=== PATIENT | female | born 1945 | race Caucasian/White ===

== ENCOUNTER 2021-04-15 08:45 | Inpatient (IN) | payer MEDICARE, MEDICAID ==
[2021-04-15] MEDS ORDERED: Sodium Chloride 0.9% 2.5 ML Syringe FLUSH PRN (09:22)
[2021-04-15] MEDS ORDERED: Sodium Chloride 0.9% 10 ML Syringe FLUSH PRN (09:22)
[2021-04-15] MEDS ORDERED: Pantoprazole 80 MG in Sodium Chloride 0.9% 10 ML IV ONE (09:23)
--- NOTE | 2021-04-15 09:25 | EDM.PDOC ---
ED HPI GENERAL MEDICAL PROBLEM - General Chief Complaint: Abdominal Pain Stated Complaint: REFFERED FROM [facility] Time Seen by Provider: 04/15/21 09:17 - History of Present Illness INITIAL COMMENTS - FREE TEXT/NARRATIVE: Patient presents to the emergency department with vomiting coffee-ground emesis and abdominal discomfort. Medical information is limited secondary to patient's baseline aphasia. Patient is able to shake her head yes and no and it does appear that the patient denies any chest pain or shortness of breath or diarrhea or fever pain with urination but I am unsure of the reliability of this information. History of hypertension, renal disease and cerebral infarction. abdomen Pain Score (Numeric/FACES): 5 - Related Data Allergies Allergy/AdvReac Type Severity Reaction Status Date / Time No Known Allergies Allergy Verified 04/15/21 09:31 Home Meds: Home Meds Aspirin [Aspirin EC] 81 mg PO DAILY 04/15/21 [History] Calcium Carbonate/Vitamin D3 [Calcium 500-Vit D3 200 Caplet] 1 tab PO DAILY 04/15/21 [History] Docusate Sodium [Colace] 200 mg PO DAILY 04/15/21 [History] Escitalopram [Lexapro] 10 mg PO DAILY 04/15/21 [History] Magnesium Hydroxide [Milk of Magnesia] 30 ml PO DAILY PRN 04/15/21 [History] Mirtazapine 30 mg PO BEDTIME 04/15/21 [History] Rivaroxaban [Xarelto] 20 mg PO WITHDINNER 04/15/21 [History] bisacodyL [Dulcolax] 5 mg PO DAILY PRN 04/15/21 [History] bisacodyL [Dulcolax] 10 mg RC DAILY PRN 04/15/21 [History] polyethylene glycoL 3350 [MiraLAX] 17 gm PO DAILY 04/15/21 [History] ED ROS GENERAL - Review of Systems Review Of Systems: Unable To Obtain Reason Not Obtained: baseline aphasia ED EXAM, GENERAL - Physical Exam Exam: See Below Free Text/Narrative:: CONSTITUTIONAL: well appearing in no acute distress SKIN: Warm, dry, and intact without rash HENT: Normocephalic, atraumatic, PULMONARY: clear to ausculation bilaterally. No rales, rhonchi, wheezing CARDIOVASCULAR: regular rate, No murmur, rubs, or gallops GASTROINTESTINAL: Diffuse mild tenderness NEUROLOGIC: Aphasia, facial droop, patient in wheelchair. MUSCULOSKELETAL: no gross deformities, atraumatic PSYCHIATRIC: normal mood and affect #1 Interpretation Time: 10:21 EKG Interpretation Comments: EKG: NSR, nonspecific ST/T changes, Rate -88. QT prolonged at 581 Course - Vital Signs Text/Narrative:: Differential diagnosis: Acute cholecystitis, bowel obstruction, ACS, Covid, pneumonia, sepsis, UTI, other Patient presents with abdominal pain and vomiting. Patient is found to have acute cholecystitis. Patient with an elevated lactic acid as well as leukocytosis in the setting of infection meeting sepsis criteria. Patient given 30 cc/kg of IV fluid and blood products in combination. Patient by history has a possible GI bleed. The stool is brown guaiac-negative from below. Protonix has been given and a unit of packed red blood cells given in this patient that has some evidence of end organ ischemia with troponin elevation. Patient denies any chest pain. I do not think this is primary ACS. Nonetheless cardiology was contacted and concurs with treatment plan. Patient was evaluated by general surgery who felt given the complexity of the patient the patient be better off at a facility with more resources. Unfortunately [place] a bed that is available. Decision is made to admit for the immediate time to resuscitate and monitor to ensure that there is no decompensation and to transfer when a bed becomes available. Discussed with graphic design professor, Dr. Ferrer, states we can keep the patient here. No aspirin in the setting of possible upper GI bleed 5:24pm [facility], [facility], [facility], [facility], [facility], [facility], [facility], [facility] contacted. Unfortunately, no beds are avaiable at this time. Last Recorded V/S: Last Vital Signs Temp 36.3 C 04/15/21 09:19 Pulse 85 04/15/21 14:44 Resp 17 04/15/21 14:44 BP 178/72 H 04/15/21 14:44 Pulse Ox 94 L 04/15/21 14:44 - Orders/Labs/Meds Orders: Active Orders 24 hr Category Date Time Status Admission Status [Patient Status] [ADT] Stat ADT 04/15/21 17:38 Active Cardiac Monitoring [RC] . DIRECTED Care 04/15/21 17:38 Active CULTURE BLOOD [BC] Stat Lab 04/15/21 09:35 Received CULTURE BLOOD [BC] Stat Lab 04/15/21 09:40 Results UA RFX NATALY AND CULT IF INDIC [URIN] Stat Lab 04/15/21 12:32 Ordered Sodium Chloride 0.9% [Saline Flush] Med 04/15/21 09:22 Active 10 ml FLUSH ASDIRECTED PRN Sodium Chloride 0.9% [Saline Flush] Med 04/15/21 09:22 Active 2.5 ml FLUSH ASDIRECTED PRN Blood Culture x2 Reflex Set [OM.PC] Stat Oth 04/15/21 09:22 Ordered Saline Lock Insert [OM.PC] Stat Oth 04/15/21 09:22 Ordered Transfuse Red Blood Cells [COMM] Stat Oth 04/15/21 10:41 Ordered Medication Orders Sodium Chloride (Sodium Chloride 0.9% 10 Ml Syringe) 10 ml FLUSH ASDIRECTED PRN PRN Reason: Keep Vein Open Last Admin: 04/15/21 09:49 Dose: 10 ml Documented by: MURTAZA Sodium Chloride (Sodium Chloride 0.9% 2.5 Ml Syringe) 2.5 ml FLUSH ASDIRECTED PRN PRN Reason: Keep Vein Open Last Admin: 04/15/21 09:50 Dose: 2.5 ml Documented by: MURTAZA Labs: Laboratory Tests 04/15/21 04/15/21 04/15/21 Range/Units 09:32 09:35 09:35 WBC 15.74 H (4.0-11.0) K/uL RBC 4.34 (4.30-5.90) M/uL Hgb 8.5 L (12.0-16.0) g/dL Hct 30.5 L (36.0-46.0) % MCV 70.3 L (80.0-98.0) fL MCH 19.6 L (27.0-32.0) pg MCHC 27.9 L (31.0-37.0) g/dL RDW Std Deviation 45.8 (28.0-62.0) fl RDW Coeff of Darilng 18 H (11.0-15.0) % Plt Count 602 H (150-400) K/uL MPV 10.30 (7.40-12.00) fL Neut % (Auto) 89.4 H (48.0-80.0) % Lymph % (Auto) 4.5 L (16.0-40.0) % Craig % (Auto) 6.0 (0.0-15.0) % Eos % (Auto) 0.0 (0.0-7.0) % Baso % (Auto) 0.1 (0.0-1.5) % Neut # (Auto) 14.1 H (1.4-5.7) K/uL Lymph # (Auto) 0.7 (0.6-2.4) K/uL Craig # (Auto) 1.0 H (0.0-0.8) K/uL Eos # (Auto) 0.0 (0.0-0.7) K/uL Baso # (Auto) 0.0 (0.0-0.1) K/uL Nucleated RBC % 0.0 /100WBC Nucleated RBCs # 0 K/uL INR 1.19 APTT 26.1 (18.6-31.3) SEC Sodium (136-145) mmol/L Potassium (3.5-5.1) mmol/L Chloride (98-107) mmol/L Carbon Dioxide (21.0-32.0) mmol/L BUN (7.0-18.0) mg/dL Creatinine (0.6-1.0) mg/dL Est Cr Clr Drug Dosing mL/min Estimated GFR (MDRD) ml/min Glucose (74-106) mg/dL Lactic Acid (0.4-2.0) mmol/L Calcium (8.5-10.1) mg/dL Total Bilirubin (0.2-1.0) mg/dL AST (15-37) IU/L ALT (14-63) IU/L Alkaline Phosphatase (46-116) U/L Troponin I (0.000-0.056) ng/mL Total Protein (6.4-8.2) g/dL Albumin (3.4-5.0) g/dL Globulin (2.6-4.0) g/dL Albumin/Globulin Ratio (0.9-1.6) Lipase (73-393) U/L Blood Type A POSITIVE Antibody Screen NEGATIVE 04/15/21 04/15/21 04/15/21 Range/Units 09:35 09:35 15:28 WBC (4.0-11.0) K/uL RBC (4.30-5.90) M/uL Hgb (12.0-16.0) g/dL Hct (36.0-46.0) % MCV (80.0-98.0) fL MCH (27.0-32.0) pg MCHC (31.0-37.0) g/dL RDW Std Deviation (28.0-62.0) fl RDW Coeff of Darling (11.0-15.0) % Plt Count (150-400) K/uL MPV (7.40-12.00) fL Neut % (Auto) (48.0-80.0) % Lymph % (Auto) (16.0-40.0) % Craig % (Auto) (0.0-15.0) % Eos % (Auto) (0.0-7.0) % Baso % (Auto) (0.0-1.5) % Neut # (Auto) (1.4-5.7) K/uL Lymph # (Auto) (0.6-2.4) K/uL Craig # (Auto) (0.0-0.8) K/uL Eos # (Auto) (0.0-0.7) K/uL Baso # (Auto) (0.0-0.1) K/uL Nucleated RBC % /100WBC Nucleated RBCs # K/uL INR APTT (18.6-31.3) SEC Sodium 136 (136-145) mmol/L Potassium 4.5 (3.5-5.1) mmol/L Chloride 101 (98-107) mmol/L Carbon Dioxide 26.6 (21.0-32.0) mmol/L BUN 17 (7.0-18.0) mg/dL Creatinine 1.4 H (0.6-1.0) mg/dL Est Cr Clr Drug Dosing 25.05 mL/min Estimated GFR (MDRD) 36.6 ml/min Glucose 193 H (74-106) mg/dL Lactic Acid 2.8 H* 2.5 H* (0.4-2.0) mmol/L Calcium 8.3 L (8.5-10.1) mg/dL Total Bilirubin 0.3 (0.2-1.0) mg/dL AST 18 (15-37) IU/L ALT 14 (14-63) IU/L Alkaline Phosphatase 123 H (46-116) U/L Troponin I 0.438 H* (0.000-0.056) ng/mL Total Protein 8.4 H (6.4-8.2) g/dL Albumin 3.3 L (3.4-5.0) g/dL Globulin 5.1 H (2.6-4.0) g/dL Albumin/Globulin Ratio 0.7 L (0.9-1.6) Lipase 124 (73-393) U/L Blood Type Antibody Screen Meds: Medications Generic Name Dose Route Start Last Admin Trade Name Freq PRN Reason Stop Dose Admin Sodium Chloride 10 ml 04/15/21 09:22 04/15/21 09:49 Sodium Chloride 0.9% 10 Ml Syringe FLUSH 10 ml ASDIRECTED PRN Administration Keep Vein Open Sodium Chloride 2.5 ml 04/15/21 09:22 04/15/21 09:50 Sodium Chloride 0.9% 2.5 Ml Syringe FLUSH 2.5 ml ASDIRECTED PRN Administration Keep Vein Open Discontinued Medications Generic Name Dose Route Start Last Admin Trade Name Freq PRN Reason Stop Dose Admin Pantoprazole Sodium 80 mg/ 10 mls @ 300 mls/hr 04/15/21 09:23 04/15/21 09:49 Sodium Chloride IV 04/15/21 09:24 300 mls/hr NOW ONE Administration Piperacillin Sod/Tazobactam 50 mls @ 100 mls/hr 04/15/21 12:44 04/15/21 13:25 Sod 3.375 gm/ Sodium Chloride IV 04/15/21 13:13 100 mls/hr ONETIME ONE Administration Lactated Ringer's 1,000 mls @ 999 mls/hr 04/15/21 12:45 04/15/21 13:25 Ringers, Lactated IV 04/15/21 13:45 999 mls/hr .BOLUS ONE Administration Lactated Ringer's 500 mls @ 1,000 mls/hr 04/15/21 12:45 04/15/21 13:25 Ringers, Lactated IV 04/15/21 13:14 1,000 mls/hr .BOLUS ONE Administration Iopamidol 50 ml 04/15/21 16:24 04/15/21 16:25 Iopamidol 755 Mg/Ml 500 Ml Multipack Bottle IVPUSH 04/15/21 16:25 50 ml ONETIME STA Administration Departure - Departure Time of Disposition: 17:40 Disposition: [facility] Condition: Good Clinical Impression: Acute cholecystitis, Anemia, Elevated troponin - Discharge Information Referrals: Reji Contreras MD [Primary Care Provider] - Forms: ED Department Discharge Sepsis Event Note (ED) - Focused Exam Vital Signs: Vital Signs Temp Pulse Resp BP Pulse Ox 04/15/21 14:44 85 17 178/72 H 94 L 04/15/21 13:20 88 18 184/75 H 93 L 04/15/21 10:26 88 18 170/91 H 95 04/15/21 09:19 36.3 C 87 17 153/53 H 93 L - My Orders Last 24 Hours: My Active Orders 04/15/21 09:22 Sodium Chloride 0.9% [Saline Flush] 10 ml FLUSH ASDIRECTED PRN Sodium Chloride 0.9% [Saline Flush] 2.5 ml FLUSH ASDIRECTED PRN Blood Culture x2 Reflex Set [OM.PC] Stat Saline Lock Insert [OM.PC] Stat 04/15/21 09:35 CULTURE BLOOD [BC] Stat 04/15/21 09:40 CULTURE BLOOD [BC] Stat 04/15/21 10:41 Transfuse Red Blood Cells [COMM] Stat 04/15/21 12:32 UA RFX NATALY AND CULT IF INDIC [URIN] Stat 04/15/21 17:38 Admission Status [Patient Status] [ADT] Stat Cardiac Monitoring [RC] . DIRECTED - Assessment/Plan Last 24 Hours: My Active Orders 04/15/21 09:22 Sodium Chloride 0.9% [Saline Flush] 10 ml FLUSH ASDIRECTED PRN Sodium Chloride 0.9% [Saline Flush] 2.5 ml FLUSH ASDIRECTED PRN Blood Culture x2 Reflex Set [OM.PC] Stat Saline Lock Insert [OM.PC] Stat 04/15/21 09:35 CULTURE BLOOD [BC] Stat 04/15/21 09:40 CULTURE BLOOD [BC] Stat 04/15/21 10:41 Transfuse Red Blood Cells [COMM] Stat 04/15/21 12:32 UA RFX NATALY AND CULT IF INDIC [URIN] Stat 04/15/21 17:38 Admission Status [Patient Status] [ADT] Stat Cardiac Monitoring [RC] . DIRECTED
[2021-04-15 10:24] LABS: CARBON DIOXIDE,CO2 26.6 mmol/L (21.0-32.0); POTASSIUM,K 4.5 mmol/L (3.5-5.1)
[2021-04-15] MEDS ORDERED: Piperacillin/Tazobactam 3.375 GM in Sodium Chloride 0.9% 50 ML IV ONE (12:44)
[2021-04-15] MEDS ORDERED: Lactated Ringers 500 ML IV ONE (12:45)
[2021-04-15] MEDS ORDERED: Lactated Ringers 1,000 ML IV ONE (12:45)
--- NOTE | 2021-04-15 15:16 | CT ---
INDICATION: Shortness of breath. TECHNIQUE: CT chest PE was acquired with 50 cc Isovue 370 IV contrast. COMPARISON: None. FINDINGS: Heart and vasculature: Contrast opacification of the pulmonary arterial tree is adequate. No sign of pulmonary embolism. Heart size is normal. Thoracic aorta and pulmonary artery are normal in caliber. Lungs and pleural: Small infiltrates and/or atelectasis in the posterior lower lobes. Remainder of the lungs are clear. No pleural effusions, pleural thickening, or pneumothorax. Lymph nodes/mediastinum: No mediastinal, hilar, or axillary adenopathy. Chest wall: No masses. Upper abdomen: No acute or significant findings. Bones: Unremarkable for age. IMPRESSION: 1. No pulmonary embolism. 2. Small areas of infiltrate or atelectasis in the posterior lower lobes. Pneumonia is not definite but possible. 3. No other findings to explain shortness of breath. Please note that all CT scans at this facility use dose modulation, iterative reconstruction, and/or weight-based dosing when appropriate to reduce radiation dose to as low as reasonably achievable. Dictated by Сергей Rodriguez MD @ 04/15/2021 3:15:45 PM (Electronically Signed)
--- NOTE | 2021-04-15 16:11 | CT ---
INDICATION: Abdominal pain. TECHNIQUE: CT abdomen and pelvis acquired with 50 cc Isovue 370 IV contrast. COMPARISON: None. FINDINGS: Lower chest: Small areas of atelectasis and/or infiltrate in the lung bases. Liver: Unremarkable. Normal in size and attenuation. No suspicious masses. Gallbladder and bile ducts: At least 1 small gallbladder stone is present. Gallbladder is moderately distended without evidence of wall thickening. No biliary dilatation. Pancreas: Unremarkable. No mass or inflammation. Spleen: Unremarkable. Normal in size. No masses. Adrenal glands: Unremarkable. No nodules. Kidneys: Kidneys are moderately atrophic with benign-appearing cysts. No hydronephrosis. GI tract: Unremarkable. Normal in caliber. No sign of mass or inflammation. Appendix is not visualized. No secondary signs of appendicitis. Vasculature: Aortic atherosclerosis without aneurysm. Mesenteric arteries are patent. Lymph nodes: No lymphadenopathy. Omentum/Peritoneum/Abdominal Wall: Unremarkable. No sign of mass or infiltration. No free air or significant free fluid. Pelvis: Unremarkable. Bones: Unremarkable for age. IMPRESSION: 1. Mild atelectasis and/or infiltrates in the lung bases. 2. Moderate gallbladder dilatation with evidence of wall thickening raising the concern for acute cholecystitis. At least 1 small gallbladder stone also present. 3. No other acute or specific finding to explain abdominal pain. Please note that all CT scans at this facility use dose modulation, iterative reconstruction, and/or weight-based dosing when appropriate to reduce radiation dose to as low as reasonably achievable. Dictated by Сергей Rodriguez MD @ 04/15/2021 4:10:17 PM (Electronically Signed)
[2021-04-15] MEDS ORDERED: Iopamidol 755 MG/ML 500 ML Multipack Bottle IVPUSH STA (16:24)
--- NOTE | 2021-04-15 17:47 | PCM.CONS ---
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 Her PMHx is is also significant for HLD, HTN, smoking history, CKDIII, and depression. She underwent percutaneous transluminal coronary angioplasty and stent at some point. She is currently on blood thinners. She lives in a shelter and was brought in for abdominal pain and coffee ground emesis. Her history is limited by her aphagia. She points to her RLQ as the source of her abdominal pain. She was hypertensive on arrival. Her O2 sats were in the low 90s. Her temp was normal. She has a leukocytosis of 15K with a left shift. Her hgb is 8.5. Her plt count is 605. Her lactate was elevated at 2.8. Her troponin was elevated at 0.438. Her alk phos was mildly elevated at 123. CT angio showed small areas on infiltrates in bilateral posterior lower lobes concerning for either pneumonia or atelectasis. A CT scan of the abdomen pelvis was done which showed a moderately distended gallbladder with wall thickening containing a single stone. This was concerning for possible acute cholecystitis.The ER physician performed a stool guiac which was negative. abdomen Pain Score (Numeric/FACES): 5 - Related Data Allergies/Adverse Reactions: Allergies Allergy/AdvReac Type Severity Reaction Status Date / Time No Known Allergies Allergy Verified 04/15/21 09:31 Home Medications: Home Meds Aspirin [Aspirin EC] 81 mg PO DAILY 04/15/21 [History] Calcium Carbonate/Vitamin D3 [Calcium 500-Vit D3 200 Caplet] 1 tab PO DAILY 04/15/21 [History] Docusate Sodium [Colace] 200 mg PO DAILY 04/15/21 [History] Escitalopram [Lexapro] 10 mg PO DAILY 04/15/21 [History] Magnesium Hydroxide [Milk of Magnesia] 30 ml PO DAILY PRN 04/15/21 [History] Mirtazapine 30 mg PO BEDTIME 04/15/21 [History] Rivaroxaban [Xarelto] 20 mg PO WITHDINNER 04/15/21 [History] bisacodyL [Dulcolax] 5 mg PO DAILY PRN 04/15/21 [History] bisacodyL [Dulcolax] 10 mg RC DAILY PRN 04/15/21 [History] polyethylene glycoL 3350 [MiraLAX] 17 gm PO DAILY 04/15/21 [History] Past Medical History HEENT History: Reports: None Cardiovascular History: Reports: High Cholesterol, Hypertension, Other (See Below) Other Cardiovascular History: athersclerotic heart disease Respiratory History: Reports: SOB Gastrointestinal History: Reports: None Genitourinary History: Reports: Renal Disease, Other (See Below) Other Genitourinary History: 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 Musculoskeletal History: Reports: Other (See Below) Other Musculoskeletal History: muscle weakness, facial weakness followin gcerebral infarction Neurological History: Reports: CVA Psychiatric History: Reports: Depression Endocrine/Metabolic History: Reports: None Hematologic History: Reports: Other (See Below) Other Hematologic History: hypocalcemia Immunologic History: Reports: None Oncologic (Cancer) History: Reports: None Dermatologic History: Reports: None - Infectious Disease History Infectious Disease History: Reports: None - Past Surgical History Head Surgeries/Procedures: Reports: None HEENT Surgical History: Reports: None Cardiovascular Surgical History: Reports: Other (See Below) Other Cardiovascular Surgeries/Procedures: Coronary angioplast implant and graft Respiratory Surgical History: Reports: None GI Surgical History: Reports: Colonoscopy Female Surgical History: Reports: Hysterectomy Endocrine Surgical History: Reports: None Neurological Surgical History: Reports: None Musculoskeletal Surgical History: Reports: None Oncologic Surgical History: Reports: None Dermatological Surgical History: Reports: None Social & Family History - Family History Family Medical History: No Pertinent Family History - Caffeine Use Caffeine Use: Reports: None - Recreational Drug Use Recreational Drug Use: No H&P Review of Systems - Review of Systems: Review Of Systems: Unable To Obtain Reason Not Obtained: aphagia Exam - Exam Exam: See Below - Vital Signs Vital Signs: Last Vital Signs Temp 36.3 C 04/15/21 09:19 Pulse 85 04/15/21 14:44 Resp 17 04/15/21 14:44 BP 178/72 H 04/15/21 14:44 Pulse Ox 94 L 04/15/21 14:44 Weight: 61.689 kg - Exam General: Alert, Oriented, Cooperative HEENT: Conjunctiva Clear, Mucosa Moist & [place], Posterior Pharynx Clear Neck: Trachea Midline Lungs: Normal Respiratory Effort Cardiovascular: Regular Rate GI/Abdominal Exam: Soft, No Distention, No Mass, Other (tenderness with deep palpation in the RUQ) - Patient Data Lab Results Last 24 hrs: Laboratory Results - last 24 hr 04/15/21 04/15/21 04/15/21 Range/Units 09:32 09:35 09:35 WBC 15.74 H (4.0-11.0) K/uL RBC 4.34 (4.30-5.90) M/uL Hgb 8.5 L (12.0-16.0) g/dL Hct 30.5 L (36.0-46.0) % MCV 70.3 L (80.0-98.0) fL MCH 19.6 L (27.0-32.0) pg MCHC 27.9 L (31.0-37.0) g/dL RDW Std Deviation 45.8 (28.0-62.0) fl RDW Coeff of Darling 18 H (11.0-15.0) % Plt Count 602 H (150-400) K/uL MPV 10.30 (7.40-12.00) fL Neut % (Auto) 89.4 H (48.0-80.0) % Lymph % (Auto) 4.5 L (16.0-40.0) % [place] % (Auto) 6.0 (0.0-15.0) % Eos % (Auto) 0.0 (0.0-7.0) % Baso % (Auto) 0.1 (0.0-1.5) % Neut # (Auto) 14.1 H (1.4-5.7) K/uL Lymph # (Auto) 0.7 (0.6-2.4) K/uL [place] # (Auto) 1.0 H (0.0-0.8) K/uL Eos # (Auto) 0.0 (0.0-0.7) K/uL Baso # (Auto) 0.0 (0.0-0.1) K/uL Nucleated RBC % 0.0 /100WBC Nucleated RBCs # 0 K/uL INR 1.19 APTT 26.1 (18.6-31.3) SEC Sodium (136-145) mmol/L Potassium (3.5-5.1) mmol/L Chloride (98-107) mmol/L Carbon Dioxide (21.0-32.0) mmol/L BUN (7.0-18.0) mg/dL Creatinine (0.6-1.0) mg/dL Est Cr Clr Drug Dosing mL/min Estimated GFR (MDRD) ml/min Glucose (74-106) mg/dL Lactic Acid (0.4-2.0) mmol/L Calcium (8.5-10.1) mg/dL Total Bilirubin (0.2-1.0) mg/dL AST (15-37) IU/L ALT (14-63) IU/L Alkaline Phosphatase (46-116) U/L Troponin I (0.000-0.056) ng/mL Total Protein (6.4-8.2) g/dL Albumin (3.4-5.0) g/dL Globulin (2.6-4.0) g/dL Albumin/Globulin Ratio (0.9-1.6) Lipase (73-393) U/L Blood Type A POSITIVE Antibody Screen NEGATIVE 04/15/21 04/15/21 04/15/21 Range/Units 09:35 09:35 15:28 WBC (4.0-11.0) K/uL RBC (4.30-5.90) M/uL Hgb (12.0-16.0) g/dL Hct (36.0-46.0) % MCV (80.0-98.0) fL MCH (27.0-32.0) pg MCHC (31.0-37.0) g/dL RDW Std Deviation (28.0-62.0) fl RDW Coeff of Darling (11.0-15.0) % Plt Count (150-400) K/uL MPV (7.40-12.00) fL Neut % (Auto) (48.0-80.0) % Lymph % (Auto) (16.0-40.0) % [place] % (Auto) (0.0-15.0) % Eos % (Auto) (0.0-7.0) % Baso % (Auto) (0.0-1.5) % Neut # (Auto) (1.4-5.7) K/uL Lymph # (Auto) (0.6-2.4) K/uL [place] # (Auto) (0.0-0.8) K/uL Eos # (Auto) (0.0-0.7) K/uL Baso # (Auto) (0.0-0.1) K/uL Nucleated RBC % /100WBC Nucleated RBCs # K/uL INR APTT (18.6-31.3) SEC Sodium 136 (136-145) mmol/L Potassium 4.5 (3.5-5.1) mmol/L Chloride 101 (98-107) mmol/L Carbon Dioxide 26.6 (21.0-32.0) mmol/L BUN 17 (7.0-18.0) mg/dL Creatinine 1.4 H (0.6-1.0) mg/dL Est Cr Clr Drug Dosing 25.05 mL/min Estimated GFR (MDRD) 36.6 ml/min Glucose 193 H (74-106) mg/dL Lactic Acid 2.8 H* 2.5 H* (0.4-2.0) mmol/L Calcium 8.3 L (8.5-10.1) mg/dL Total Bilirubin 0.3 (0.2-1.0) mg/dL AST 18 (15-37) IU/L ALT 14 (14-63) IU/L Alkaline Phosphatase 123 H (46-116) U/L Troponin I 0.438 H* (0.000-0.056) ng/mL Total Protein 8.4 H (6.4-8.2) g/dL Albumin 3.3 L (3.4-5.0) g/dL Globulin 5.1 H (2.6-4.0) g/dL Albumin/Globulin Ratio 0.7 L (0.9-1.6) Lipase 124 (73-393) U/L Blood Type Antibody Screen Result Diagrams: 04/15/21 09:35 04/15/21 09:35 Charli Results Last 24 hrs: Microbiology 04/15/21 09:40 Anaerobic Blood Culture - Final Blood - Venous - Lab Draw Sepsis Event Note - Focused Exam Vital Signs: Vital Signs Temp Pulse Resp BP Pulse Ox 04/15/21 14:44 85 17 178/72 H 94 L 04/15/21 13:20 88 18 184/75 H 93 L 04/15/21 10:26 88 18 170/91 H 95 04/15/21 09:19 36.3 C 87 17 153/53 H 93 L Consult PN Assessment/Plan (1) Acute cholecystitis SNOMED Code(s): 57049315 Code(s): K81.0 - ACUTE CHOLECYSTITIS Current Visit: Yes (2) Anemia SNOMED Code(s): 376510001 Code(s): D64.9 - ANEMIA, UNSPECIFIED Current Visit: Yes (3) Elevated troponin SNOMED Code(s): 538808222, 506804082, 558035863 Code(s): R77.8 - OTHER SPECIFIED ABNORMALITIES OF PLASMA PROTEINS Current Visit: Yes Problem List Initiated/Reviewed/Updated: Yes Plan: Given her multiple medical co-morbidities as well as her elevated lactate and troponin, I felt that she should be transferred to a hospital able to provide a higher level of care. Unfortunately there are no beds available in a [facility] area. Given this, she can be admitted to the medicine service overnight. I will continue to follow along. I would recommend an US of the RUQ be performed. I would recommend close cardiac monitoring as well as serial lactates and troponins. Should her troponin's rise higher, I would recommend emergent transfer. She should be resuscitated with blood and fluids per medicine's discretion. Would keep her NPO overnight. Start IV protonix. Would hold her anticoagulation. Would start broad spectrum antibiotics such as zosyn. Would also send stool for formal occult blood and H pylori testing. Call with any questions or concerns.
[2021-04-15] MEDS: Piperacillin/Tazobactam 3.375 GM in Sodium Chloride 0.9% 50 ML IV SCH (19:45)
[2021-04-15] MEDS ORDERED: Morphine 4 MG/ML VIAL IVPUSH PRN (20:20)
[2021-04-15] MEDS ORDERED: Ondansetron 4 MG/2 ML SDV IVPUSH PRN (20:20)
--- NOTE | 2021-04-15 20:42 | PCM.HP.2 ---
H&P History of Present Illness - General Date of Service: 04/15/21 Admit Problem/Dx: Admission Diagnosis/Problem Admission Diagnosis/Problem Acute cholecystitis - History of Present Illness Initial Comments - Free Text/Narative: 76 yo female with pmh of CVA, CAD s/p PCI, HTN, HLD who is a resident at [facility] who presents with one day of abdominal shasta and nausea. PAtient had one episode of coffee ground emesis noted at [facility]. In the ED she had brown guaiac negative stools. CT scan of the abdomen was concerning for possible acute cholecystitis. CT chest angio was negative for PE. Patient is on Xarelto. abdomen Pain Score (Numeric/FACES): 5 - Related Data Allergies/Adverse Reactions: Allergies Allergy/AdvReac Type Severity Reaction Status Date / Time No Known Allergies Allergy Verified 04/15/21 09:31 Home Medications: Home Meds Aspirin [Aspirin EC] 81 mg PO DAILY 04/15/21 [History] Calcium Carbonate/Vitamin D3 [Calcium 500-Vit D3 200 Caplet] 1 tab PO DAILY 04/15/21 [History] Docusate Sodium [Colace] 200 mg PO DAILY 04/15/21 [History] Escitalopram [Lexapro] 10 mg PO DAILY 04/15/21 [History] Magnesium Hydroxide [Milk of Magnesia] 30 ml PO DAILY PRN 04/15/21 [History] Mirtazapine 30 mg PO BEDTIME 04/15/21 [History] Rivaroxaban [Xarelto] 20 mg PO WITHDINNER 04/15/21 [History] bisacodyL [Dulcolax] 5 mg PO DAILY PRN 04/15/21 [History] bisacodyL [Dulcolax] 10 mg RC DAILY PRN 04/15/21 [History] polyethylene glycoL 3350 [MiraLAX] 17 gm PO DAILY 04/15/21 [History] Past Medical History HEENT History: Reports: None Cardiovascular History: Reports: High Cholesterol, Hypertension, Other (See Below) Other Cardiovascular History: athersclerotic heart disease Respiratory History: Reports: SOB Gastrointestinal History: Reports: None Genitourinary History: Reports: Renal Disease, Other (See Below) Other Genitourinary History: 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 [employer] History: Reports: None Musculoskeletal History: Reports: Other (See Below) Other Musculoskeletal History: muscle weakness, facial weakness followin gcerebral infarction Neurological History: Reports: CVA Psychiatric History: Reports: Depression Endocrine/Metabolic History: Reports: None Hematologic History: Reports: Other (See Below) Other Hematologic History: hypocalcemia Immunologic History: Reports: None Oncologic (Cancer) History: Reports: None Dermatologic History: Reports: None - Infectious Disease History Infectious Disease History: Reports: None - Past Surgical History GI Surgical History: Reports: Colonoscopy Female Surgical History: Reports: Hysterectomy Social & Family History - Family History Family Medical History: No Pertinent Family History - Caffeine Use Caffeine Use: Reports: None - Recreational Drug Use Recreational Drug Use: No H&P Review of Systems - Review of Systems: Review Of Systems: Comprehensive ROS is negative, except as noted in HPI. Exam - Exam Exam: See Below - Vital Signs Vital Signs: Last Vital Signs Temp 36.3 C 04/15/21 09:19 Pulse 86 04/15/21 19:55 Resp 16 04/15/21 19:55 BP 149/58 H 04/15/21 19:55 Pulse Ox 91 L 04/15/21 19:55 Weight: 61.689 kg - Exam General: Alert, Oriented HEENT: Mucosa Moist & [place] Neck: Supple Lungs: Clear to Auscultation, Normal Respiratory Effort Cardiovascular: Regular Rate, Regular Rhythm GI/Abdominal Exam: Normal Bowel Sounds, Soft, Non-Tender Extremities: Non-Tender, No Pedal Edema Skin: Warm, Dry, Intact Neurological: No: Focal Deficit - Patient Data Lab Results Last 24 hrs: Laboratory Results - last 24 hr 04/15/21 04/15/21 04/15/21 Range/Units 09:32 09:35 09:35 WBC 15.74 H (4.0-11.0) K/uL RBC 4.34 (4.30-5.90) M/uL Hgb 8.5 L (12.0-16.0) g/dL Hct 30.5 L (36.0-46.0) % MCV 70.3 L (80.0-98.0) fL MCH 19.6 L (27.0-32.0) pg MCHC 27.9 L (31.0-37.0) g/dL RDW Std Deviation 45.8 (28.0-62.0) fl RDW Coeff of Darling 18 H (11.0-15.0) % Plt Count 602 H (150-400) K/uL MPV 10.30 (7.40-12.00) fL Neut % (Auto) 89.4 H (48.0-80.0) % Lymph % (Auto) 4.5 L (16.0-40.0) % [place] % (Auto) 6.0 (0.0-15.0) % Eos % (Auto) 0.0 (0.0-7.0) % Baso % (Auto) 0.1 (0.0-1.5) % Neut # (Auto) 14.1 H (1.4-5.7) K/uL Lymph # (Auto) 0.7 (0.6-2.4) K/uL [place] # (Auto) 1.0 H (0.0-0.8) K/uL Eos # (Auto) 0.0 (0.0-0.7) K/uL Baso # (Auto) 0.0 (0.0-0.1) K/uL Nucleated RBC % 0.0 /100WBC Nucleated RBCs # 0 K/uL INR 1.19 APTT 26.1 (18.6-31.3) SEC Sodium (136-145) mmol/L Potassium (3.5-5.1) mmol/L Chloride (98-107) mmol/L Carbon Dioxide (21.0-32.0) mmol/L BUN (7.0-18.0) mg/dL Creatinine (0.6-1.0) mg/dL Est Cr Clr Drug Dosing mL/min Estimated GFR (MDRD) ml/min Glucose (74-106) mg/dL Lactic Acid (0.4-2.0) mmol/L Calcium (8.5-10.1) mg/dL Total Bilirubin (0.2-1.0) mg/dL AST (15-37) IU/L ALT (14-63) IU/L Alkaline Phosphatase (46-116) U/L Troponin I (0.000-0.056) ng/mL Total Protein (6.4-8.2) g/dL Albumin (3.4-5.0) g/dL Globulin (2.6-4.0) g/dL Albumin/Globulin Ratio (0.9-1.6) Lipase (73-393) U/L SARS-CoV-2 RNA (NISHA) (NEGATIVE) Blood Type A POSITIVE Antibody Screen NEGATIVE Crossmatch See Detail 04/15/21 04/15/21 04/15/21 Range/Units 09:35 09:35 15:28 WBC (4.0-11.0) K/uL RBC (4.30-5.90) M/uL Hgb (12.0-16.0) g/dL Hct (36.0-46.0) % MCV (80.0-98.0) fL MCH (27.0-32.0) pg MCHC (31.0-37.0) g/dL RDW Std Deviation (28.0-62.0) fl RDW Coeff of Darling (11.0-15.0) % Plt Count (150-400) K/uL MPV (7.40-12.00) fL Neut % (Auto) (48.0-80.0) % Lymph % (Auto) (16.0-40.0) % [place] % (Auto) (0.0-15.0) % Eos % (Auto) (0.0-7.0) % Baso % (Auto) (0.0-1.5) % Neut # (Auto) (1.4-5.7) K/uL Lymph # (Auto) (0.6-2.4) K/uL [place] # (Auto) (0.0-0.8) K/uL Eos # (Auto) (0.0-0.7) K/uL Baso # (Auto) (0.0-0.1) K/uL Nucleated RBC % /100WBC Nucleated RBCs # K/uL INR APTT (18.6-31.3) SEC Sodium 136 (136-145) mmol/L Potassium 4.5 (3.5-5.1) mmol/L Chloride 101 (98-107) mmol/L Carbon Dioxide 26.6 (21.0-32.0) mmol/L BUN 17 (7.0-18.0) mg/dL Creatinine 1.4 H (0.6-1.0) mg/dL Est Cr Clr Drug Dosing 25.05 mL/min Estimated GFR (MDRD) 36.6 ml/min Glucose 193 H (74-106) mg/dL Lactic Acid 2.8 H* 2.5 H* (0.4-2.0) mmol/L Calcium 8.3 L (8.5-10.1) mg/dL Total Bilirubin 0.3 (0.2-1.0) mg/dL AST 18 (15-37) IU/L ALT 14 (14-63) IU/L Alkaline Phosphatase 123 H (46-116) U/L Troponin I 0.438 H* (0.000-0.056) ng/mL Total Protein 8.4 H (6.4-8.2) g/dL Albumin 3.3 L (3.4-5.0) g/dL Globulin 5.1 H (2.6-4.0) g/dL Albumin/Globulin Ratio 0.7 L (0.9-1.6) Lipase 124 (73-393) U/L SARS-CoV-2 RNA (NISHA) (NEGATIVE) Blood Type Antibody Screen Crossmatch 04/15/21 04/15/21 Range/Units 18:51 19:32 WBC (4.0-11.0) K/uL RBC (4.30-5.90) M/uL Hgb (12.0-16.0) g/dL Hct (36.0-46.0) % MCV (80.0-98.0) fL MCH (27.0-32.0) pg MCHC (31.0-37.0) g/dL RDW Std Deviation (28.0-62.0) fl RDW Coeff of Darling (11.0-15.0) % Plt Count (150-400) K/uL MPV (7.40-12.00) fL Neut % (Auto) (48.0-80.0) % Lymph % (Auto) (16.0-40.0) % [place] % (Auto) (0.0-15.0) % Eos % (Auto) (0.0-7.0) % Baso % (Auto) (0.0-1.5) % Neut # (Auto) (1.4-5.7) K/uL Lymph # (Auto) (0.6-2.4) K/uL [place] # (Auto) (0.0-0.8) K/uL Eos # (Auto) (0.0-0.7) K/uL Baso # (Auto) (0.0-0.1) K/uL Nucleated RBC % /100WBC Nucleated RBCs # K/uL INR APTT (18.6-31.3) SEC Sodium (136-145) mmol/L Potassium (3.5-5.1) mmol/L Chloride (98-107) mmol/L Carbon Dioxide (21.0-32.0) mmol/L BUN (7.0-18.0) mg/dL Creatinine (0.6-1.0) mg/dL Est Cr Clr Drug Dosing mL/min Estimated GFR (MDRD) ml/min Glucose (74-106) mg/dL Lactic Acid (0.4-2.0) mmol/L Calcium (8.5-10.1) mg/dL Total Bilirubin (0.2-1.0) mg/dL AST (15-37) IU/L ALT (14-63) IU/L Alkaline Phosphatase (46-116) U/L Troponin I 0.564 H* (0.000-0.056) ng/mL Total Protein (6.4-8.2) g/dL Albumin (3.4-5.0) g/dL Globulin (2.6-4.0) g/dL Albumin/Globulin Ratio (0.9-1.6) Lipase (73-393) U/L SARS-CoV-2 RNA (NISHA) NEGATIVE (NEGATIVE) Blood Type Antibody Screen Crossmatch Result Diagrams: 04/15/21 09:35 04/15/21 09:35 Charli Results Last 24 hrs: Microbiology 04/15/21 09:40 Anaerobic Blood Culture - Final Blood - Venous - Lab Draw Sepsis Event Note - Focused Exam Vital Signs: Vital Signs Temp Pulse Resp BP Pulse Ox 04/15/21 19:55 86 16 149/58 H 91 L 04/15/21 16:55 87 20 142/46 H 91 L 04/15/21 14:44 85 17 178/72 H 94 L 04/15/21 13:20 88 18 184/75 H 93 L 04/15/21 10:26 88 18 170/91 H 95 04/15/21 09:19 36.3 C 87 17 153/53 H 93 L - Problem List (1) Sepsis SNOMED Code(s): 09235388 ICD Code: A41.9 - SEPSIS, UNSPECIFIED ORGANISM Status: Acute Current Visit: Yes (2) Acute cholecystitis SNOMED Code(s): 86319424 ICD Code: K81.0 - ACUTE CHOLECYSTITIS Status: Acute Current Visit: Yes (3) Anemia SNOMED Code(s): 236009528 ICD Code: D64.9 - ANEMIA, UNSPECIFIED Status: Acute Current Visit: Yes (4) Elevated troponin SNOMED Code(s): 611559177, 690213864, 614606073 ICD Code: R77.8 - OTHER SPECIFIED ABNORMALITIES OF PLASMA PROTEINS Status: Acute Current Visit: Yes Problem List Initiated/Reviewed/Updated: Yes Orders Last 24hrs: Active Orders 24 hr Category Date Time Status Admission Status [Patient Status] [ADT] Stat ADT 04/15/21 17:38 Active Antiembolic Devices [RC] PER UNIT ROUTINE Care 04/15/21 20:34 Ordered Cardiac Monitoring [RC] . DIRECTED Care 04/15/21 17:38 Active Cardiac Monitoring [RC] . DIRECTED Care 04/15/21 20:35 Ordered Hemoccult [Fecal Occult Blood Collection] [RC] Care 04/15/21 20:36 Ordered ASDIRECTED Oxygen Therapy [RC] PRN Care 04/15/21 20:20 Ordered VTE/DVT Education [RC] PER UNIT ROUTINE Care 04/15/21 20:20 Ordered Vital Signs [RC] Q4H Care 04/15/21 20:20 Ordered Nothing per Oral Now Diet [DIET] Diet 04/15/21 Breakfast Ordered CBC WITH AUTO DIFF [HEME] AM Lab 04/16/21 05:11 Ordered CBC WITH AUTO DIFF [HEME] Stat Lab 04/15/21 20:35 Ordered COMPREHENSIVE METABOLIC PN,CMP [CHEM] AM Lab 04/16/21 05:11 Ordered CULTURE BLOOD [BC] Stat Lab 04/15/21 09:35 Received CULTURE BLOOD [BC] Stat Lab 04/15/21 09:40 Results H PYLORI STOOL ANTIGEN [MREF] Stat Lab 04/15/21 20:36 Ordered Hemoccult [OCCULT BLOOD DIAGNOSTIC] [OP] Stat Lab 04/15/21 20:36 Ordered LACTATE SEPSIS W/ REFLEX [CHEM] Routine Lab 04/15/21 20:19 Ordered MAGNESIUM [CHEM] AM Lab 04/16/21 05:11 Ordered PHOSPHORUS [CHEM] AM Lab 04/16/21 05:11 Ordered RED BLOOD CELLS LP [BBK] Stat Lab 04/15/21 09:32 Results TYPE AND SCREEN [BBK] Stat Lab 04/15/21 09:32 Results UA RFX CHARLI AND CULT IF INDIC [URIN] Stat Lab 04/15/21 12:32 Ordered Lactated Ringers [Ringers, Lactated] 1,000 ml Med 04/15/21 19:45 Active IV ASDIRECTED Morphine Med 04/15/21 20:20 Ordered 2 mg IVPUSH Q2H PRN Ondansetron [Zofran] Med 04/15/21 20:20 Ordered 4 mg IVPUSH Q4H PRN Piperacillin/Tazobactam [Piperacil-Tazobact] 3.375 gm Med 04/15/21 19:30 Active Sodium Chloride 0.9% [Normal Saline AdvBag] 50 ml IV Q6H Sodium Chloride 0.9% [Saline Flush] Med 04/15/21 09:22 Active 10 ml FLUSH ASDIRECTED PRN Sodium Chloride 0.9% [Saline Flush] Med 04/15/21 09:22 Active 2.5 ml FLUSH ASDIRECTED PRN Blood Culture x2 Reflex Set [OM.PC] Stat Oth 04/15/21 09:22 Ordered Saline Lock Insert [OM.PC] Stat Oth 04/15/21 09:22 Ordered Sequential Compression Device [OM.PC] Per Unit Routine Oth 04/15/21 20:20 Ord ered Transfuse Red Blood Cells [COMM] Stat Oth 04/15/21 10:41 Ordered Resuscitation Status Routine Resus Stat 04/15/21 20:20 Ordered Medication Orders Piperacillin Sod/Tazobactam (Sod 3.375 gm/ Sodium Chloride) 50 mls @ 100 mls/hr IV Q6H ELIANA Last Admin: 04/15/21 19:45 Dose: 100 mls/hr Documented by: SCHOLAC Lactated Ringer's (Ringers, Lactated) 1,000 mls @ 125 mls/hr IV ASDIRECTED ELIANA Morphine Sulfate (Morphine 4 Mg/Ml Vial) 2 mg IVPUSH Q2H PRN PRN Reason: Pain (severe 7-10) Stop: 04/16/21 20:20 Ondansetron HCl (Ondansetron 4 Mg/2 Ml Sdv) 4 mg IVPUSH Q4H PRN PRN Reason: nausea Sodium Chloride (Sodium Chloride 0.9% 10 Ml Syringe) 10 ml FLUSH ASDIRECTED PRN PRN Reason: Keep Vein Open Last Admin: 04/15/21 09:49 Dose: 10 ml Documented by: MURTAZA Sodium Chloride (Sodium Chloride 0.9% 2.5 Ml Syringe) 2.5 ml FLUSH ASDIRECTED PRN PRN Reason: Keep Vein Open Last Admin: 04/15/21 09:50 Dose: 2.5 ml Documented by: MURTAZA Assessment/Plan Comment:: 76 yo female admitted with sepsis from acute cholecystitis and possible pneumonia with acute kidney injury and troponin leak Acute cholecystitis: will continue IV fluids, NPO, IV zosyn, and pain control. Dr. Aguayo has been consulted, did recommend transfer, but no beds are available. While awaiting bed will continue medical management. Will hold anticoagulation Possible pneumonia: Zosyn, azithromycin Troponin leak: likely not ACS, will continue to trend
[2021-04-15] MEDS ORDERED: Azithromycin 500 MG Vial IV SCH (20:45)
[2021-04-15] MEDS: Lactated Ringers 1,000 ML IV SCH (23:29)
[2021-04-15] MEDS: Azithromycin 500 MG in Sodium Chloride 0.9% 250 ML IV SCH (23:29)
[2021-04-16] MEDS ORDERED: Sodium Chloride 0.9% 500 ML IV SCH (00:15)
[2021-04-16] MEDS: Piperacillin/Tazobactam 3.375 GM in Sodium Chloride 0.9% 50 ML IV SCH ×4 (01:44→19:26)
[2021-04-16 07:22] LABS: BLOOD UREA NITROGEN,BUN 12 mg/dL (7.0-18.0); CARBON DIOXIDE,CO2 24.6 mmol/L (21.0-32.0); CHLORIDE,CL 107 mmol/L (98-107); GLUCOSE RANDOM 109 mg/dL (74-106); SODIUM,NA 140 mmol/L (136-145)
--- NOTE | 2021-04-16 09:19 | US ---
Indication: Right upper quadrant abdomen pain TECHNIQUE: Ultrasound abdomen limited. Sonographic images of the right upper quadrant were obtained using hill-scale and color Doppler images. Comparison: None FINDINGS: Liver: Normal in size and echotexture. No masses. No intrahepatic biliary dilatation. Gallbladder: There are layering gallstones seen within the gallbladder. There is questionable mild sonographic tenderness. Normal wall thickness. No pericholecystic fluid. Common bile duct: 4 mm. Pancreas: Normal. Right kidney: The right kidney is normal in size contour and echogenicity without evidence of mass, cyst or hydronephrosis. Impression: Layering gallstones within the gallbladder with questionable sonographic tenderness otherwise, no evidence of overt cholecystitis. If clinical symptoms persist, recommend follow-up with hepatobiliary imaging exam. Dictated by Ean Goel MD @ 04/16/2021 9:17:04 AM (Electronically Signed)
--- NOTE | 2021-04-16 12:51 | PCM.PN ---
- General Info Date of Service: 04/16/21 - Review of Systems Systems Review Comment:: denies any abdominal pain, nausea or vomiting. - Patient Data Vitals - Most Recent: Last Vital Signs Temp 36.9 C 04/16/21 12:05 Pulse 75 04/16/21 12:05 Resp 16 04/16/21 12:05 BP 112/53 L 04/16/21 12:05 Pulse Ox 92 L 04/16/21 12:05 Weight - Most Recent: 60.963 kg I&O - Last 24 Hours: Intake & Output 04/15/21 04/16/21 04/16/21 22:59 06:59 14:59 Intake Total 950 100 Output Total 100 Balance 850 100 Lab Results Last 24 Hours: Laboratory Results - last 24 hr 04/15/21 04/15/21 04/15/21 Range/Units 09:32 15:28 18:51 WBC (4.0-11.0) K/uL RBC (4.30-5.90) M/uL Hgb (12.0-16.0) g/dL Hct (36.0-46.0) % MCV (80.0-98.0) fL MCH (27.0-32.0) pg MCHC (31.0-37.0) g/dL RDW Std Deviation (28.0-62.0) fl RDW Coeff of Darling (11.0-15.0) % Plt Count (150-400) K/uL MPV (7.40-12.00) fL Neut % (Auto) (48.0-80.0) % Lymph % (Auto) (16.0-40.0) % [place] % (Auto) (0.0-15.0) % Eos % (Auto) (0.0-7.0) % Baso % (Auto) (0.0-1.5) % Neut # (Auto) (1.4-5.7) K/uL Lymph # (Auto) (0.6-2.4) K/uL [place] # (Auto) (0.0-0.8) K/uL Eos # (Auto) (0.0-0.7) K/uL Baso # (Auto) (0.0-0.1) K/uL Nucleated RBC % /100WBC Nucleated RBCs # K/uL Sodium (136-145) mmol/L Potassium (3.5-5.1) mmol/L Chloride (98-107) mmol/L Carbon Dioxide (21.0-32.0) mmol/L BUN (7.0-18.0) mg/dL Creatinine (0.6-1.0) mg/dL Est Cr Clr Drug Dosing Estimated GFR (MDRD) ml/min Glucose (74-106) mg/dL POC Glucose (70-99) mg/dL Lactic Acid 2.5 H* (0.4-2.0) mmol/L Calcium (8.5-10.1) mg/dL Phosphorus (2.6-4.7) mg/dL Magnesium (1.8-2.4) mg/dL Total Bilirubin (0.2-1.0) mg/dL AST (15-37) IU/L ALT (14-63) IU/L Alkaline Phosphatase (46-116) U/L Troponin I 0.564 H* (0.000-0.056) ng/mL Total Protein (6.4-8.2) g/dL Albumin (3.4-5.0) g/dL Globulin (2.6-4.0) g/dL Albumin/Globulin Ratio (0.9-1.6) Urine Color Urine Appearance Urine pH (5.0-8.0) Ur Specific [place] (1.001-1.035) Urine Protein (NEGATIVE) mg/dL Urine Glucose (UA) (NEGATIVE) mg/dL Urine Ketones (NEGATIVE) mg/dL Urine Occult Blood (NEGATIVE) Urine Nitrite (NEGATIVE) Urine Bilirubin (NEGATIVE) Urine Urobilinogen (<2.0) EU/dL Ur Leukocyte Esterase (NEGATIVE) SARS-CoV-2 RNA (NISHA) (NEGATIVE) Blood Type A POSITIVE Antibody Screen NEGATIVE Crossmatch See Detail 04/15/21 04/15/21 04/15/21 Range/Units 19:32 20:44 20:44 WBC 12.32 H (4.0-11.0) K/uL RBC 3.96 L (4.30-5.90) M/uL Hgb 8.0 L (12.0-16.0) g/dL Hct 28.0 L (36.0-46.0) % MCV 70.7 L (80.0-98.0) fL MCH 20.2 L (27.0-32.0) pg MCHC 28.6 L (31.0-37.0) g/dL RDW Std Deviation 47.3 (28.0-62.0) fl RDW Coeff of Darling 18 H (11.0-15.0) % Plt Count 487 H (150-400) K/uL MPV 10.20 (7.40-12.00) fL Neut % (Auto) 73.2 (48.0-80.0) % Lymph % (Auto) 17.0 (16.0-40.0) % [place] % (Auto) 9.6 (0.0-15.0) % Eos % (Auto) 0.0 (0.0-7.0) % Baso % (Auto) 0.2 (0.0-1.5) % Neut # (Auto) 9.0 H (1.4-5.7) K/uL Lymph # (Auto) 2.1 (0.6-2.4) K/uL [place] # (Auto) 1.2 H (0.0-0.8) K/uL Eos # (Auto) 0.0 (0.0-0.7) K/uL Baso # (Auto) 0.0 (0.0-0.1) K/uL Nucleated RBC % 0.0 /100WBC Nucleated RBCs # 0 K/uL Sodium (136-145) mmol/L Potassium (3.5-5.1) mmol/L Chloride (98-107) mmol/L Carbon Dioxide (21.0-32.0) mmol/L BUN (7.0-18.0) mg/dL Creatinine (0.6-1.0) mg/dL Est Cr Clr Drug Dosing Estimated GFR (MDRD) ml/min Glucose (74-106) mg/dL POC Glucose (70-99) mg/dL Lactic Acid 3.1 H* (0.4-2.0) mmol/L Calcium (8.5-10.1) mg/dL Phosphorus (2.6-4.7) mg/dL Magnesium (1.8-2.4) mg/dL Total Bilirubin (0.2-1.0) mg/dL AST (15-37) IU/L ALT (14-63) IU/L Alkaline Phosphatase (46-116) U/L Troponin I (0.000-0.056) ng/mL Total Protein (6.4-8.2) g/dL Albumin (3.4-5.0) g/dL Globulin (2.6-4.0) g/dL Albumin/Globulin Ratio (0.9-1.6) Urine Color Urine Appearance Urine pH (5.0-8.0) Ur Specific [place] (1.001-1.035) Urine Protein (NEGATIVE) mg/dL Urine Glucose (UA) (NEGATIVE) mg/dL Urine Ketones (NEGATIVE) mg/dL Urine Occult Blood (NEGATIVE) Urine Nitrite (NEGATIVE) Urine Bilirubin (NEGATIVE) Urine Urobilinogen (<2.0) EU/dL Ur Leukocyte Esterase (NEGATIVE) SARS-CoV-2 RNA (NISHA) NEGATIVE (NEGATIVE) Blood Type Antibody Screen Crossmatch 04/16/21 04/16/21 04/16/21 Range/Units 00:50 01:00 01:15 WBC (4.0-11.0) K/uL RBC (4.30-5.90) M/uL Hgb (12.0-16.0) g/dL Hct (36.0-46.0) % MCV (80.0-98.0) fL MCH (27.0-32.0) pg MCHC (31.0-37.0) g/dL RDW Std Deviation (28.0-62.0) fl RDW Coeff of Darling (11.0-15.0) % Plt Count (150-400) K/uL MPV (7.40-12.00) fL Neut % (Auto) (48.0-80.0) % Lymph % (Auto) (16.0-40.0) % [place] % (Auto) (0.0-15.0) % Eos % (Auto) (0.0-7.0) % Baso % (Auto) (0.0-1.5) % Neut # (Auto) (1.4-5.7) K/uL Lymph # (Auto) (0.6-2.4) K/uL [place] # (Auto) (0.0-0.8) K/uL Eos # (Auto) (0.0-0.7) K/uL Baso # (Auto) (0.0-0.1) K/uL Nucleated RBC % /100WBC Nucleated RBCs # K/uL Sodium (136-145) mmol/L Potassium (3.5-5.1) mmol/L Chloride (98-107) mmol/L Carbon Dioxide (21.0-32.0) mmol/L BUN (7.0-18.0) mg/dL Creatinine (0.6-1.0) mg/dL Est Cr Clr Drug Dosing Estimated GFR (MDRD) ml/min Glucose (74-106) mg/dL POC Glucose 118 H (70-99) mg/dL Lactic Acid (0.4-2.0) mmol/L Calcium (8.5-10.1) mg/dL Phosphorus (2.6-4.7) mg/dL Magnesium (1.8-2.4) mg/dL Total Bilirubin (0.2-1.0) mg/dL AST (15-37) IU/L ALT (14-63) IU/L Alkaline Phosphatase (46-116) U/L Troponin I 0.806 H* (0.000-0.056) ng/mL Total Protein (6.4-8.2) g/dL Albumin (3.4-5.0) g/dL Globulin (2.6-4.0) g/dL Albumin/Globulin Ratio (0.9-1.6) Urine Color YELLOW Urine Appearance CLEAR Urine pH 7.5 (5.0-8.0) Ur Specific [place] 1.015 (1.001-1.035) Urine Protein NEGATIVE (NEGATIVE) mg/dL Urine Glucose (UA) NEGATIVE (NEGATIVE) mg/dL Urine Ketones NEGATIVE (NEGATIVE) mg/dL Urine Occult Blood NEGATIVE (NEGATIVE) Urine Nitrite NEGATIVE (NEGATIVE) Urine Bilirubin NEGATIVE (NEGATIVE) Urine Urobilinogen 0.2 (<2.0) EU/dL Ur Leukocyte Esterase NEGATIVE (NEGATIVE) SARS-CoV-2 RNA (NISHA) (NEGATIVE) Blood Type Antibody Screen Crossmatch 04/16/21 04/16/21 04/16/21 Range/Units 02:20 06:09 06:09 WBC 7.41 (4.0-11.0) K/uL RBC 3.78 L (4.30-5.90) M/uL Hgb 7.9 L (12.0-16.0) g/dL Hct 27.3 L (36.0-46.0) % MCV 72.2 L (80.0-98.0) fL MCH 20.9 L (27.0-32.0) pg MCHC 28.9 L (31.0-37.0) g/dL RDW Std Deviation 50.9 (28.0-62.0) fl RDW Coeff of Darling 19 H (11.0-15.0) % Plt Count 386 (150-400) K/uL MPV 10.70 (7.40-12.00) fL Neut % (Auto) 60.5 (48.0-80.0) % Lymph % (Auto) 27.3 (16.0-40.0) % [place] % (Auto) 10.7 (0.0-15.0) % Eos % (Auto) 1.1 (0.0-7.0) % Baso % (Auto) 0.4 (0.0-1.5) % Neut # (Auto) 4.5 (1.4-5.7) K/uL Lymph # (Auto) 2.0 (0.6-2.4) K/uL [place] # (Auto) 0.8 (0.0-0.8) K/uL Eos # (Auto) 0.1 (0.0-0.7) K/uL Baso # (Auto) 0.0 (0.0-0.1) K/uL Nucleated RBC % 0.0 /100WBC Nucleated RBCs # 0 K/uL Sodium 140 (136-145) mmol/L Potassium 4.0 (3.5-5.1) mmol/L Chloride 107 (98-107) mmol/L Carbon Dioxide 24.6 (21.0-32.0) mmol/L BUN 12 (7.0-18.0) mg/dL Creatinine 1.2 H (0.6-1.0) mg/dL Est Cr Clr Drug Dosing TNP Estimated GFR (MDRD) 43.7 ml/min Glucose 109 H (74-106) mg/dL POC Glucose (70-99) mg/dL Lactic Acid 1.2 (0.4-2.0) mmol/L Calcium 7.4 L (8.5-10.1) mg/dL Phosphorus 2.6 (2.6-4.7) mg/dL Magnesium 2.0 (1.8-2.4) mg/dL Total Bilirubin 0.7 (0.2-1.0) mg/dL AST 13 L (15-37) IU/L ALT 12 L (14-63) IU/L Alkaline Phosphatase 87 (46-116) U/L Troponin I (0.000-0.056) ng/mL Total Protein 6.4 (6.4-8.2) g/dL Albumin 2.4 L (3.4-5.0) g/dL Globulin 4.0 (2.6-4.0) g/dL Albumin/Globulin Ratio 0.6 L (0.9-1.6) Urine Color Urine Appearance Urine pH (5.0-8.0) Ur Specific [place] (1.001-1.035) Urine Protein (NEGATIVE) mg/dL Urine Glucose (UA) (NEGATIVE) mg/dL Urine Ketones (NEGATIVE) mg/dL Urine Occult Blood (NEGATIVE) Urine Nitrite (NEGATIVE) Urine Bilirubin (NEGATIVE) Urine Urobilinogen (<2.0) EU/dL Ur Leukocyte Esterase (NEGATIVE) SARS-CoV-2 RNA (NISHA) (NEGATIVE) Blood Type Antibody Screen Crossmatch 04/16/21 04/16/21 Range/Units 06:09 06:20 WBC (4.0-11.0) K/uL RBC (4.30-5.90) M/uL Hgb (12.0-16.0) g/dL Hct (36.0-46.0) % MCV (80.0-98.0) fL MCH (27.0-32.0) pg MCHC (31.0-37.0) g/dL RDW Std Deviation (28.0-62.0) fl RDW Coeff of Darling (11.0-15.0) % Plt Count (150-400) K/uL MPV (7.40-12.00) fL Neut % (Auto) (48.0-80.0) % Lymph % (Auto) (16.0-40.0) % [place] % (Auto) (0.0-15.0) % Eos % (Auto) (0.0-7.0) % Baso % (Auto) (0.0-1.5) % Neut # (Auto) (1.4-5.7) K/uL Lymph # (Auto) (0.6-2.4) K/uL [place] # (Auto) (0.0-0.8) K/uL Eos # (Auto) (0.0-0.7) K/uL Baso # (Auto) (0.0-0.1) K/uL Nucleated RBC % /100WBC Nucleated RBCs # K/uL Sodium (136-145) mmol/L Potassium (3.5-5.1) mmol/L Chloride (98-107) mmol/L Carbon Dioxide (21.0-32.0) mmol/L BUN (7.0-18.0) mg/dL Creatinine (0.6-1.0) mg/dL Est Cr Clr Drug Dosing Estimated GFR (MDRD) ml/min Glucose (74-106) mg/dL POC Glucose 102 H (70-99) mg/dL Lactic Acid (0.4-2.0) mmol/L Calcium (8.5-10.1) mg/dL Phosphorus (2.6-4.7) mg/dL Magnesium (1.8-2.4) mg/dL Total Bilirubin (0.2-1.0) mg/dL AST (15-37) IU/L ALT (14-63) IU/L Alkaline Phosphatase (46-116) U/L Troponin I 0.742 H* (0.000-0.056) ng/mL Total Protein (6.4-8.2) g/dL Albumin (3.4-5.0) g/dL Globulin (2.6-4.0) g/dL Albumin/Globulin Ratio (0.9-1.6) Urine Color Urine Appearance Urine pH (5.0-8.0) Ur Specific [place] (1.001-1.035) Urine Protein (NEGATIVE) mg/dL Urine Glucose (UA) (NEGATIVE) mg/dL Urine Ketones (NEGATIVE) mg/dL Urine Occult Blood (NEGATIVE) Urine Nitrite (NEGATIVE) Urine Bilirubin (NEGATIVE) Urine Urobilinogen (<2.0) EU/dL Ur Leukocyte Esterase (NEGATIVE) SARS-CoV-2 RNA (NISHA) (NEGATIVE) Blood Type Antibody Screen Crossmatch Charli Results Last 24 Hours: Microbiology 04/15/21 09:40 Aerobic Blood Culture - Preliminary Blood - Venous - Lab Draw NO GROWTH AFTER 1 DAY Anaerobic Blood Culture - Final 04/15/21 09:35 Aerobic Blood Culture - Preliminary Blood - Venous NO GROWTH AFTER 1 DAY Anaerobic Blood Culture - Preliminary NO GROWTH AFTER 1 DAY Med Orders - Current: Current Medications Piperacillin Sod/Tazobactam (Sod 3.375 gm/ Sodium Chloride) 50 mls @ 100 mls/hr IV Q6H [facility] Last Admin: 04/16/21 06:35 Dose: 100 mls/hr Documented by: Lactated Ringer's (Ringers, Lactated) 1,000 mls @ 125 mls/hr IV ASDIRECTED [facility] Last Admin: 04/15/21 23:29 Dose: 125 mls/hr Documented by: Azithromycin 500 mg/ Sodium (Chloride) 250 mls @ 250 mls/hr IV Q24H [facility] Last Admin: 04/15/21 23:29 Dose: 250 mls/hr Documented by: Sodium Chloride (Normal Saline) 500 mls @ 500 mls/hr IV .BOLUS [facility] Last Admin: 04/16/21 00:37 Dose: 500 mls/hr Documented by: Pantoprazole Sodium 40 mg/ (Sodium Chloride) 10 mls @ 300 mls/hr IV Q12H [facility] Morphine Sulfate (Morphine 2 Mg/Ml Syringe) 2 mg IVPUSH Q2H PRN PRN Reason: Pain (severe 7-10) Ondansetron HCl (Ondansetron 4 Mg/2 Ml Sdv) 4 mg IVPUSH Q4H PRN PRN Reason: nausea Sodium Chloride (Sodium Chloride 0.9% 10 Ml Syringe) 10 ml FLUSH ASDIRECTED PRN PRN Reason: Keep Vein Open Last Admin: 04/15/21 09:49 Dose: 10 ml Documented by: Sodium Chloride (Sodium Chloride 0.9% 2.5 Ml Syringe) 2.5 ml FLUSH ASDIRECTED PRN PRN Reason: Keep Vein Open Last Admin: 04/15/21 09:50 Dose: 2.5 ml Documented by: Discontinued Medications Azithromycin (Azithromycin 500 Mg Vial) 500 mg IV Q24H [facility] Last Admin: 04/15/21 23:53 Dose: Not Given Documented by: Pantoprazole Sodium 80 mg/ (Sodium Chloride) 10 mls @ 300 mls/hr IV NOW ONE Stop: 04/15/21 09:24 Last Admin: 04/15/21 09:49 Dose: 300 mls/hr Documented by: Piperacillin Sod/Tazobactam (Sod 3.375 gm/ Sodium Chloride) 50 mls @ 100 mls/hr IV ONETIME ONE Stop: 04/15/21 13:13 Last Admin: 04/15/21 13:25 Dose: 100 mls/hr Documented by: Lactated Ringer's (Ringers, Lactated) 1,000 mls @ 999 mls/hr IV .BOLUS ONE Stop: 04/15/21 13:45 Last Admin: 04/15/21 13:25 Dose: 999 mls/hr Documented by: Lactated Ringer's (Ringers, Lactated) 500 mls @ 1,000 mls/hr IV .BOLUS ONE Stop: 04/15/21 13:14 Last Admin: 04/15/21 13:25 Dose: 1,000 mls/hr Documented by: Iopamidol (Iopamidol 755 Mg/Ml 500 Ml Multipack Bottle) 50 ml IVPUSH ONETIME STA Stop: 04/15/21 16:25 Last Admin: 04/15/21 16:25 Dose: 50 ml Documented by: Morphine Sulfate (Morphine 4 Mg/Ml Vial) 2 mg IVPUSH Q2H PRN PRN Reason: Pain (severe 7-10) Stop: 04/16/21 20:20 - Exam General: Alert, Oriented Neck: Supple Lungs: Clear to Auscultation, Normal Respiratory Effort Cardiovascular: Regular Rate, Regular Rhythm GI/Abdominal Exam: Normal Bowel Sounds, Soft, Non-Tender Extremities: Non-Tender, No Pedal Edema Skin: Warm, Dry, Intact - Patient Data Lab Results Last 24 hrs: Laboratory Results - last 24 hr 04/15/21 04/15/21 04/15/21 Range/Units 09:32 15:28 18:51 WBC (4.0-11.0) K/uL RBC (4.30-5.90) M/uL Hgb (12.0-16.0) g/dL Hct (36.0-46.0) % MCV (80.0-98.0) fL MCH (27.0-32.0) pg MCHC (31.0-37.0) g/dL RDW Std Deviation (28.0-62.0) fl RDW Coeff of Darling (11.0-15.0) % Plt Count (150-400) K/uL MPV (7.40-12.00) fL Neut % (Auto) (48.0-80.0) % Lymph % (Auto) (16.0-40.0) % [place] % (Auto) (0.0-15.0) % Eos % (Auto) (0.0-7.0) % Baso % (Auto) (0.0-1.5) % Neut # (Auto) (1.4-5.7) K/uL Lymph # (Auto) (0.6-2.4) K/uL [place] # (Auto) (0.0-0.8) K/uL Eos # (Auto) (0.0-0.7) K/uL Baso # (Auto) (0.0-0.1) K/uL Nucleated RBC % /100WBC Nucleated RBCs # K/uL Sodium (136-145) mmol/L Potassium (3.5-5.1) mmol/L Chloride (98-107) mmol/L Carbon Dioxide (21.0-32.0) mmol/L BUN (7.0-18.0) mg/dL Creatinine (0.6-1.0) mg/dL Est Cr Clr Drug Dosing Estimated GFR (MDRD) ml/min Glucose (74-106) mg/dL POC Glucose (70-99) mg/dL Lactic Acid 2.5 H* (0.4-2.0) mmol/L Calcium (8.5-10.1) mg/dL Phosphorus (2.6-4.7) mg/dL Magnesium (1.8-2.4) mg/dL Total Bilirubin (0.2-1.0) mg/dL AST (15-37) IU/L ALT (14-63) IU/L Alkaline Phosphatase (46-116) U/L Troponin I 0.564 H* (0.000-0.056) ng/mL Total Protein (6.4-8.2) g/dL Albumin (3.4-5.0) g/dL Globulin (2.6-4.0) g/dL Albumin/Globulin Ratio (0.9-1.6) Urine Color Urine Appearance Urine pH (5.0-8.0) Ur Specific [place] (1.001-1.035) Urine Protein (NEGATIVE) mg/dL Urine Glucose (UA) (NEGATIVE) mg/dL Urine Ketones (NEGATIVE) mg/dL Urine Occult Blood (NEGATIVE) Urine Nitrite (NEGATIVE) Urine Bilirubin (NEGATIVE) Urine Urobilinogen (<2.0) EU/dL Ur Leukocyte Esterase (NEGATIVE) SARS-CoV-2 RNA (NISHA) (NEGATIVE) Blood Type A POSITIVE Antibody Screen NEGATIVE Crossmatch See Detail 04/15/21 04/15/21 04/15/21 Range/Units 19:32 20:44 20:44 WBC 12.32 H (4.0-11.0) K/uL RBC 3.96 L (4.30-5.90) M/uL Hgb 8.0 L (12.0-16.0) g/dL Hct 28.0 L (36.0-46.0) % MCV 70.7 L (80.0-98.0) fL MCH 20.2 L (27.0-32.0) pg MCHC 28.6 L (31.0-37.0) g/dL RDW Std Deviation 47.3 (28.0-62.0) fl RDW Coeff of Darling 18 H (11.0-15.0) % Plt Count 487 H (150-400) K/uL MPV 10.20 (7.40-12.00) fL Neut % (Auto) 73.2 (48.0-80.0) % Lymph % (Auto) 17.0 (16.0-40.0) % [place] % (Auto) 9.6 (0.0-15.0) % Eos % (Auto) 0.0 (0.0-7.0) % Baso % (Auto) 0.2 (0.0-1.5) % Neut # (Auto) 9.0 H (1.4-5.7) K/uL Lymph # (Auto) 2.1 (0.6-2.4) K/uL [place] # (Auto) 1.2 H (0.0-0.8) K/uL Eos # (Auto) 0.0 (0.0-0.7) K/uL Baso # (Auto) 0.0 (0.0-0.1) K/uL Nucleated RBC % 0.0 /100WBC Nucleated RBCs # 0 K/uL Sodium (136-145) mmol/L Potassium (3.5-5.1) mmol/L Chloride (98-107) mmol/L Carbon Dioxide (21.0-32.0) mmol/L BUN (7.0-18.0) mg/dL Creatinine (0.6-1.0) mg/dL Est Cr Clr Drug Dosing Estimated GFR (MDRD) ml/min Glucose (74-106) mg/dL POC Glucose (70-99) mg/dL Lactic Acid 3.1 H* (0.4-2.0) mmol/L Calcium (8.5-10.1) mg/dL Phosphorus (2.6-4.7) mg/dL Magnesium (1.8-2.4) mg/dL Total Bilirubin (0.2-1.0) mg/dL AST (15-37) IU/L ALT (14-63) IU/L Alkaline Phosphatase (46-116) U/L Troponin I (0.000-0.056) ng/mL Total Protein (6.4-8.2) g/dL Albumin (3.4-5.0) g/dL Globulin (2.6-4.0) g/dL Albumin/Globulin Ratio (0.9-1.6) Urine Color Urine Appearance Urine pH (5.0-8.0) Ur Specific [place] (1.001-1.035) Urine Protein (NEGATIVE) mg/dL Urine Glucose (UA) (NEGATIVE) mg/dL Urine Ketones (NEGATIVE) mg/dL Urine Occult Blood (NEGATIVE) Urine Nitrite (NEGATIVE) Urine Bilirubin (NEGATIVE) Urine Urobilinogen (<2.0) EU/dL Ur Leukocyte Esterase (NEGATIVE) SARS-CoV-2 RNA (NISHA) NEGATIVE (NEGATIVE) Blood Type Antibody Screen Crossmatch 04/16/21 04/16/21 04/16/21 Range/Units 00:50 01:00 01:15 WBC (4.0-11.0) K/uL RBC (4.30-5.90) M/uL Hgb (12.0-16.0) g/dL Hct (36.0-46.0) % MCV (80.0-98.0) fL MCH (27.0-32.0) pg MCHC (31.0-37.0) g/dL RDW Std Deviation (28.0-62.0) fl RDW Coeff of Darling (11.0-15.0) % Plt Count (150-400) K/uL MPV (7.40-12.00) fL Neut % (Auto) (48.0-80.0) % Lymph % (Auto) (16.0-40.0) % [place] % (Auto) (0.0-15.0) % Eos % (Auto) (0.0-7.0) % Baso % (Auto) (0.0-1.5) % Neut # (Auto) (1.4-5.7) K/uL Lymph # (Auto) (0.6-2.4) K/uL [place] # (Auto) (0.0-0.8) K/uL Eos # (Auto) (0.0-0.7) K/uL Baso # (Auto) (0.0-0.1) K/uL Nucleated RBC % /100WBC Nucleated RBCs # K/uL Sodium (136-145) mmol/L Potassium (3.5-5.1) mmol/L Chloride (98-107) mmol/L Carbon Dioxide (21.0-32.0) mmol/L BUN (7.0-18.0) mg/dL Creatinine (0.6-1.0) mg/dL Est Cr Clr Drug Dosing Estimated GFR (MDRD) ml/min Glucose (74-106) mg/dL POC Glucose 118 H (70-99) mg/dL Lactic Acid (0.4-2.0) mmol/L Calcium (8.5-10.1) mg/dL Phosphorus (2.6-4.7) mg/dL Magnesium (1.8-2.4) mg/dL Total Bilirubin (0.2-1.0) mg/dL AST (15-37) IU/L ALT (14-63) IU/L Alkaline Phosphatase (46-116) U/L Troponin I 0.806 H* (0.000-0.056) ng/mL Total Protein (6.4-8.2) g/dL Albumin (3.4-5.0) g/dL Globulin (2.6-4.0) g/dL Albumin/Globulin Ratio (0.9-1.6) Urine Color YELLOW Urine Appearance CLEAR Urine pH 7.5 (5.0-8.0) Ur Specific [place] 1.015 (1.001-1.035) Urine Protein NEGATIVE (NEGATIVE) mg/dL Urine Glucose (UA) NEGATIVE (NEGATIVE) mg/dL Urine Ketones NEGATIVE (NEGATIVE) mg/dL Urine Occult Blood NEGATIVE (NEGATIVE) Urine Nitrite NEGATIVE (NEGATIVE) Urine Bilirubin NEGATIVE (NEGATIVE) Urine Urobilinogen 0.2 (<2.0) EU/dL Ur Leukocyte Esterase NEGATIVE (NEGATIVE) SARS-CoV-2 RNA (NISHA) (NEGATIVE) Blood Type Antibody Screen Crossmatch 04/16/21 04/16/21 04/16/21 Range/Units 02:20 06:09 06:09 WBC 7.41 (4.0-11.0) K/uL RBC 3.78 L (4.30-5.90) M/uL Hgb 7.9 L (12.0-16.0) g/dL Hct 27.3 L (36.0-46.0) % MCV 72.2 L (80.0-98.0) fL MCH 20.9 L (27.0-32.0) pg MCHC 28.9 L (31.0-37.0) g/dL RDW Std Deviation 50.9 (28.0-62.0) fl RDW Coeff of Darling 19 H (11.0-15.0) % Plt Count 386 (150-400) K/uL MPV 10.70 (7.40-12.00) fL Neut % (Auto) 60.5 (48.0-80.0) % Lymph % (Auto) 27.3 (16.0-40.0) % [place] % (Auto) 10.7 (0.0-15.0) % Eos % (Auto) 1.1 (0.0-7.0) % Baso % (Auto) 0.4 (0.0-1.5) % Neut # (Auto) 4.5 (1.4-5.7) K/uL Lymph # (Auto) 2.0 (0.6-2.4) K/uL [place]ern # (Auto) 0.8 (0.0-0.8) K/uL Eos # (Auto) 0.1 (0.0-0.7) K/uL Baso # (Auto) 0.0 (0.0-0.1) K/uL Nucleated RBC % 0.0 /100WBC Nucleated RBCs # 0 K/uL Sodium 140 (136-145) mmol/L Potassium 4.0 (3.5-5.1) mmol/L Chloride 107 (98-107) mmol/L Carbon Dioxide 24.6 (21.0-32.0) mmol/L BUN 12 (7.0-18.0) mg/dL Creatinine 1.2 H (0.6-1.0) mg/dL Est Cr Clr Drug Dosing TNP Estimated GFR (MDRD) 43.7 ml/min Glucose 109 H (74-106) mg/dL POC Glucose (70-99) mg/dL Lactic Acid 1.2 (0.4-2.0) mmol/L Calcium 7.4 L (8.5-10.1) mg/dL Phosphorus 2.6 (2.6-4.7) mg/dL Magnesium 2.0 (1.8-2.4) mg/dL Total Bilirubin 0.7 (0.2-1.0) mg/dL AST 13 L (15-37) IU/L ALT 12 L (14-63) IU/L Alkaline Phosphatase 87 (46-116) U/L Troponin I (0.000-0.056) ng/mL Total Protein 6.4 (6.4-8.2) g/dL Albumin 2.4 L (3.4-5.0) g/dL Globulin 4.0 (2.6-4.0) g/dL Albumin/Globulin Ratio 0.6 L (0.9-1.6) Urine Color Urine Appearance Urine pH (5.0-8.0) Ur Specific [place] (1.001-1.035) Urine Protein (NEGATIVE) mg/dL Urine Glucose (UA) (NEGATIVE) mg/dL Urine Ketones (NEGATIVE) mg/dL Urine Occult Blood (NEGATIVE) Urine Nitrite (NEGATIVE) Urine Bilirubin (NEGATIVE) Urine Urobilinogen (<2.0) EU/dL Ur Leukocyte Esterase (NEGATIVE) SARS-CoV-2 RNA (NISHA) (NEGATIVE) Blood Type Antibody Screen Crossmatch 04/16/21 04/16/21 Range/Units 06:09 06:20 WBC (4.0-11.0) K/uL RBC (4.30-5.90) M/uL Hgb (12.0-16.0) g/dL Hct (36.0-46.0) % MCV (80.0-98.0) fL MCH (27.0-32.0) pg MCHC (31.0-37.0) g/dL RDW Std Deviation (28.0-62.0) fl RDW Coeff of Darling (11.0-15.0) % Plt Count (150-400) K/uL MPV (7.40-12.00) fL Neut % (Auto) (48.0-80.0) % Lymph % (Auto) (16.0-40.0) % [place] % (Auto) (0.0-15.0) % Eos % (Auto) (0.0-7.0) % Baso % (Auto) (0.0-1.5) % Neut # (Auto) (1.4-5.7) K/uL Lymph # (Auto) (0.6-2.4) K/uL [place] # (Auto) (0.0-0.8) K/uL Eos # (Auto) (0.0-0.7) K/uL Baso # (Auto) (0.0-0.1) K/uL Nucleated RBC % /100WBC Nucleated RBCs # K/uL Sodium (136-145) mmol/L Potassium (3.5-5.1) mmol/L Chloride (98-107) mmol/L Carbon Dioxide (21.0-32.0) mmol/L BUN (7.0-18.0) mg/dL Creatinine (0.6-1.0) mg/dL Est Cr Clr Drug Dosing Estimated GFR (MDRD) ml/min Glucose (74-106) mg/dL POC Glucose 102 H (70-99) mg/dL Lactic Acid (0.4-2.0) mmol/L Calcium (8.5-10.1) mg/dL Phosphorus (2.6-4.7) mg/dL Magnesium (1.8-2.4) mg/dL Total Bilirubin (0.2-1.0) mg/dL AST (15-37) IU/L ALT (14-63) IU/L Alkaline Phosphatase (46-116) U/L Troponin I 0.742 H* (0.000-0.056) ng/mL Total Protein (6.4-8.2) g/dL Albumin (3.4-5.0) g/dL Globulin (2.6-4.0) g/dL Albumin/Globulin Ratio (0.9-1.6) Urine Color Urine Appearance Urine pH (5.0-8.0) Ur Specific [place] (1.001-1.035) Urine Protein (NEGATIVE) mg/dL Urine Glucose (UA) (NEGATIVE) mg/dL Urine Ketones (NEGATIVE) mg/dL Urine Occult Blood (NEGATIVE) Urine Nitrite (NEGATIVE) Urine Bilirubin (NEGATIVE) Urine Urobilinogen (<2.0) EU/dL Ur Leukocyte Esterase (NEGATIVE) SARS-CoV-2 RNA (NISHA) (NEGATIVE) Blood Type Antibody Screen Crossmatch Result Diagrams: 04/16/21 06:09 04/16/21 06:09 Charli Results Last 24 hrs: Microbiology 04/15/21 09:40 Aerobic Blood Culture - Preliminary Blood - Venous - Lab Draw NO GROWTH AFTER 1 DAY Anaerobic Blood Culture - Final 04/15/21 09:35 Aerobic Blood Culture - Preliminary Blood - Venous NO GROWTH AFTER 1 DAY Anaerobic Blood Culture - Preliminary NO GROWTH AFTER 1 DAY Sepsis Event Note - Evaluation Sepsis Screening Result: No Definite Risk - Focused Exam Vital Signs: Vital Signs Temp Temp Pulse Resp BP BP Pulse Ox 04/16/21 12:05 36.9 C 75 16 112/53 L 92 L 04/16/21 11:19 36.6 C 80 20 128/61 92 L 04/16/21 11:04 36.6 C 79 20 120/59 L 92 L 04/16/21 08:10 36.6 C 87 16 119/58 L 93 L 04/16/21 04:11 04/16/21 04:02 36.0 C L 83 16 114/55 L 93 L 04/16/21 01:49 37.3 C 84 17 111/56 L 91 L Pulse Ox 04/16/21 12:05 04/16/21 11:19 04/16/21 11:04 04/16/21 08:10 04/16/21 04:11 93 L 04/16/21 04:02 04/16/21 01:49 - Problem List & Annotations (1) Sepsis SNOMED Code(s): 04334627 Code(s): A41.9 - SEPSIS, UNSPECIFIED ORGANISM Status: Acute Current Visit: Yes (2) Acute cholecystitis SNOMED Code(s): 74445835 Code(s): K81.0 - ACUTE CHOLECYSTITIS Status: Acute Current Visit: Yes (3) Anemia SNOMED Code(s): 485372344 Code(s): D64.9 - ANEMIA, UNSPECIFIED Status: Acute Current Visit: Yes (4) Elevated troponin SNOMED Code(s): 176381693, 353456888, 597537123 Code(s): R77.8 - OTHER SPECIFIED ABNORMALITIES OF PLASMA PROTEINS Status: Acute Current Visit: Yes - Problem List Review Problem List Initiated/Reviewed/Updated: Yes - My Orders Last 24 Hours: My Active Orders 04/15/21 19:30 Piperacillin/Tazobactam [Piperacil-Tazobact] 3.375 gm Sodium Chloride 0.9% [Normal Saline AdvBag] 50 ml IV Q6H 04/15/21 20:20 Oxygen Therapy [RC] PRN VTE/DVT Education [RC] PER UNIT ROUTINE Vital Signs [RC] Q4H Ondansetron [Zofran] 4 mg IVPUSH Q4H PRN Sequential Compression Device [OM.PC] Per Unit Routine Resuscitation Status Routine 04/15/21 20:34 Antiembolic Devices [RC] PER UNIT ROUTINE 04/15/21 20:35 Cardiac Monitoring [RC] . DIRECTED 04/15/21 20:36 Hemoccult [Fecal Occult Blood Collection] [RC] ASDIRECTED H PYLORI STOOL ANTIGEN [MREF] Stat Hemoccult [OCCULT BLOOD DIAGNOSTIC] [OP] Stat 04/15/21 22:27 Telemetry Monitoring [Cardiac Monitoring] [RC] . DIRECTED 04/15/21 22:30 Azithromycin [Zithromax] 500 mg Sodium Chloride 0.9% [Normal Saline AdvBag] 250 ml IV Q24H 04/16/21 00:15 Sodium Chloride 0.9% [Normal Saline] 500 ml IV .BOLUS 04/16/21 09:30 Morphine 2 mg IVPUSH Q2H PRN 04/16/21 10:57 Echo Comp wo Cont [US] Routine 04/16/21 12:00 TROPONIN I [CHEM] Routine 04/16/21 21:00 Pantoprazole [ProTONIX IV] 40 mg Sodium Chloride 0.9% [Normal Saline] 10 ml IV Q12H - Plan Plan:: 76 yo female admitted with sepsis from acute cholecystitis and possible pneumonia with acute kidney injury and troponin leak Possible pneumonia, sepsis: Zosyn, azithromycin, lactic acid normalized, possible aspiration, speech consulted Acute cholecystitis: will continue IV fluids, NPO, IV zosyn, and pain control. Dr. Aguayo has been consulted, Ultrasound negative, Will hold off on transfer. MRCP ordered Microcytic anemia in setting of possible acute GI bleed: Hemmocult stool ordered, Protonix, Dr. Aguayo considering EGD. Patient has been on anticoagula tion for PFO with hx of stroke, will hold Xarelto. Will have higher transfusion threshold due to troponin leak. Troponin leak: likely not ACS, will continue to trend, Dr. Funez consulted
--- NOTE | 2021-04-16 16:08 | PCM.CONSN ---
- General Info Date of Service: 04/16/21 Subjective Update: Patient is feeling better today. Denies any abdominal pain. Denies nausea. Has not had a BM today. Functional Status: Reports: Pain Controlled - Review of Systems General: Reports: No Symptoms Pulmonary: Reports: No Symptoms Cardiovascular: Reports: No Symptoms Gastrointestinal: Reports: No Symptoms - Patient Data Vitals - Most Recent: Last Vital Signs Temp 36.6 C 04/16/21 15:30 Pulse 81 04/16/21 15:30 Resp 19 04/16/21 15:30 BP 138/61 04/16/21 15:30 Pulse Ox 92 L 04/16/21 12:05 Weight - Most Recent: 60.963 kg I&O - Last 24 Hours: Intake & Output 04/16/21 04/16/21 04/16/21 06:59 14:59 22:59 Intake Total 950 450 Output Total 100 Balance 850 450 Lab Results Last 24 Hours: Laboratory Results - last 24 hr 04/15/21 04/15/21 04/15/21 Range/Units 09:32 15:28 18:51 WBC (4.0-11.0) K/uL RBC (4.30-5.90) M/uL Hgb (12.0-16.0) g/dL Hct (36.0-46.0) % MCV (80.0-98.0) fL MCH (27.0-32.0) pg MCHC (31.0-37.0) g/dL RDW Std Deviation (28.0-62.0) fl RDW Coeff of Darling (11.0-15.0) % Plt Count (150-400) K/uL MPV (7.40-12.00) fL Neut % (Auto) (48.0-80.0) % Lymph % (Auto) (16.0-40.0) % [place] % (Auto) (0.0-15.0) % Eos % (Auto) (0.0-7.0) % Baso % (Auto) (0.0-1.5) % Neut # (Auto) (1.4-5.7) K/uL Lymph # (Auto) (0.6-2.4) K/uL [place] # (Auto) (0.0-0.8) K/uL Eos # (Auto) (0.0-0.7) K/uL Baso # (Auto) (0.0-0.1) K/uL Nucleated RBC % /100WBC Nucleated RBCs # K/uL Sodium (136-145) mmol/L Potassium (3.5-5.1) mmol/L Chloride (98-107) mmol/L Carbon Dioxide (21.0-32.0) mmol/L BUN (7.0-18.0) mg/dL Creatinine (0.6-1.0) mg/dL Est Cr Clr Drug Dosing Estimated GFR (MDRD) ml/min Glucose (74-106) mg/dL POC Glucose (70-99) mg/dL Lactic Acid 2.5 H* (0.4-2.0) mmol/L Calcium (8.5-10.1) mg/dL Phosphorus (2.6-4.7) mg/dL Magnesium (1.8-2.4) mg/dL Total Bilirubin (0.2-1.0) mg/dL AST (15-37) IU/L ALT (14-63) IU/L Alkaline Phosphatase (46-116) U/L Troponin I 0.564 H* (0.000-0.056) ng/mL Total Protein (6.4-8.2) g/dL Albumin (3.4-5.0) g/dL Globulin (2.6-4.0) g/dL Albumin/Globulin Ratio (0.9-1.6) Urine Color Urine Appearance Urine pH (5.0-8.0) Ur Specific [place] (1.001-1.035) Urine Protein (NEGATIVE) mg/dL Urine Glucose (UA) (NEGATIVE) mg/dL Urine Ketones (NEGATIVE) mg/dL Urine Occult Blood (NEGATIVE) Urine Nitrite (NEGATIVE) Urine Bilirubin (NEGATIVE) Urine Urobilinogen (<2.0) EU/dL Ur Leukocyte Esterase (NEGATIVE) SARS-CoV-2 RNA (NISHA) (NEGATIVE) Blood Type A POSITIVE Antibody Screen NEGATIVE Crossmatch See Detail 04/15/21 04/15/21 04/15/21 Range/Units 19:32 20:44 20:44 WBC 12.32 H (4.0-11.0) K/uL RBC 3.96 L (4.30-5.90) M/uL Hgb 8.0 L (12.0-16.0) g/dL Hct 28.0 L (36.0-46.0) % MCV 70.7 L (80.0-98.0) fL MCH 20.2 L (27.0-32.0) pg MCHC 28.6 L (31.0-37.0) g/dL RDW Std Deviation 47.3 (28.0-62.0) fl RDW Coeff of Darling 18 H (11.0-15.0) % Plt Count 487 H (150-400) K/uL MPV 10.20 (7.40-12.00) fL Neut % (Auto) 73.2 (48.0-80.0) % Lymph % (Auto) 17.0 (16.0-40.0) % [place] % (Auto) 9.6 (0.0-15.0) % Eos % (Auto) 0.0 (0.0-7.0) % Baso % (Auto) 0.2 (0.0-1.5) % Neut # (Auto) 9.0 H (1.4-5.7) K/uL Lymph # (Auto) 2.1 (0.6-2.4) K/uL [place] # (Auto) 1.2 H (0.0-0.8) K/uL Eos # (Auto) 0.0 (0.0-0.7) K/uL Baso # (Auto) 0.0 (0.0-0.1) K/uL Nucleated RBC % 0.0 /100WBC Nucleated RBCs # 0 K/uL Sodium (136-145) mmol/L Potassium (3.5-5.1) mmol/L Chloride (98-107) mmol/L Carbon Dioxide (21.0-32.0) mmol/L BUN (7.0-18.0) mg/dL Creatinine (0.6-1.0) mg/dL Est Cr Clr Drug Dosing Estimated GFR (MDRD) ml/min Glucose (74-106) mg/dL POC Glucose (70-99) mg/dL Lactic Acid 3.1 H* (0.4-2.0) mmol/L Calcium (8.5-10.1) mg/dL Phosphorus (2.6-4.7) mg/dL Magnesium (1.8-2.4) mg/dL Total Bilirubin (0.2-1.0) mg/dL AST (15-37) IU/L ALT (14-63) IU/L Alkaline Phosphatase (46-116) U/L Troponin I (0.000-0.056) ng/mL Total Protein (6.4-8.2) g/dL Albumin (3.4-5.0) g/dL Globulin (2.6-4.0) g/dL Albumin/Globulin Ratio (0.9-1.6) Urine Color Urine Appearance Urine pH (5.0-8.0) Ur Specific [place] (1.001-1.035) Urine Protein (NEGATIVE) mg/dL Urine Glucose (UA) (NEGATIVE) mg/dL Urine Ketones (NEGATIVE) mg/dL Urine Occult Blood (NEGATIVE) Urine Nitrite (NEGATIVE) Urine Bilirubin (NEGATIVE) Urine Urobilinogen (<2.0) EU/dL Ur Leukocyte Esterase (NEGATIVE) SARS-CoV-2 RNA (NISHA) NEGATIVE (NEGATIVE) Blood Type Antibody Screen Crossmatch 04/16/21 04/16/21 04/16/21 Range/Units 00:50 01:00 01:15 WBC (4.0-11.0) K/uL RBC (4.30-5.90) M/uL Hgb (12.0-16.0) g/dL Hct (36.0-46.0) % MCV (80.0-98.0) fL MCH (27.0-32.0) pg MCHC (31.0-37.0) g/dL RDW Std Deviation (28.0-62.0) fl RDW Coeff of Darling (11.0-15.0) % Plt Count (150-400) K/uL MPV (7.40-12.00) fL Neut % (Auto) (48.0-80.0) % Lymph % (Auto) (16.0-40.0) % [place] % (Auto) (0.0-15.0) % Eos % (Auto) (0.0-7.0) % Baso % (Auto) (0.0-1.5) % Neut # (Auto) (1.4-5.7) K/uL Lymph # (Auto) (0.6-2.4) K/uL [place] # (Auto) (0.0-0.8) K/uL Eos # (Auto) (0.0-0.7) K/uL Baso # (Auto) (0.0-0.1) K/uL Nucleated RBC % /100WBC Nucleated RBCs # K/uL Sodium (136-145) mmol/L Potassium (3.5-5.1) mmol/L Chloride (98-107) mmol/L Carbon Dioxide (21.0-32.0) mmol/L BUN (7.0-18.0) mg/dL Creatinine (0.6-1.0) mg/dL Est Cr Clr Drug Dosing Estimated GFR (MDRD) ml/min Glucose (74-106) mg/dL POC Glucose 118 H (70-99) mg/dL Lactic Acid (0.4-2.0) mmol/L Calcium (8.5-10.1) mg/dL Phosphorus (2.6-4.7) mg/dL Magnesium (1.8-2.4) mg/dL Total Bilirubin (0.2-1.0) mg/dL AST (15-37) IU/L ALT (14-63) IU/L Alkaline Phosphatase (46-116) U/L Troponin I 0.806 H* (0.000-0.056) ng/mL Total Protein (6.4-8.2) g/dL Albumin (3.4-5.0) g/dL Globulin (2.6-4.0) g/dL Albumin/Globulin Ratio (0.9-1.6) Urine Color YELLOW Urine Appearance CLEAR Urine pH 7.5 (5.0-8.0) Ur Specific [place] 1.015 (1.001-1.035) Urine Protein NEGATIVE (NEGATIVE) mg/dL Urine Glucose (UA) NEGATIVE (NEGATIVE) mg/dL Urine Ketones NEGATIVE (NEGATIVE) mg/dL Urine Occult Blood NEGATIVE (NEGATIVE) Urine Nitrite NEGATIVE (NEGATIVE) Urine Bilirubin NEGATIVE (NEGATIVE) Urine Urobilinogen 0.2 (<2.0) EU/dL Ur Leukocyte Esterase NEGATIVE (NEGATIVE) SARS-CoV-2 RNA (NISHA) (NEGATIVE) Blood Type Antibody Screen Crossmatch 04/16/21 04/16/21 04/16/21 Range/Units 02:20 06:09 06:09 WBC 7.41 (4.0-11.0) K/uL RBC 3.78 L (4.30-5.90) M/uL Hgb 7.9 L (12.0-16.0) g/dL Hct 27.3 L (36.0-46.0) % MCV 72.2 L (80.0-98.0) fL MCH 20.9 L (27.0-32.0) pg MCHC 28.9 L (31.0-37.0) g/dL RDW Std Deviation 50.9 (28.0-62.0) fl RDW Coeff of Darling 19 H (11.0-15.0) % Plt Count 386 (150-400) K/uL MPV 10.70 (7.40-12.00) fL Neut % (Auto) 60.5 (48.0-80.0) % Lymph % (Auto) 27.3 (16.0-40.0) % [place] % (Auto) 10.7 (0.0-15.0) % Eos % (Auto) 1.1 (0.0-7.0) % Baso % (Auto) 0.4 (0.0-1.5) % Neut # (Auto) 4.5 (1.4-5.7) K/uL Lymph # (Auto) 2.0 (0.6-2.4) K/uL [place] # (Auto) 0.8 (0.0-0.8) K/uL Eos # (Auto) 0.1 (0.0-0.7) K/uL Baso # (Auto) 0.0 (0.0-0.1) K/uL Nucleated RBC % 0.0 /100WBC Nucleated RBCs # 0 K/uL Sodium 140 (136-145) mmol/L Potassium 4.0 (3.5-5.1) mmol/L Chloride 107 (98-107) mmol/L Carbon Dioxide 24.6 (21.0-32.0) mmol/L BUN 12 (7.0-18.0) mg/dL Creatinine 1.2 H (0.6-1.0) mg/dL Est Cr Clr Drug Dosing TNP Estimated GFR (MDRD) 43.7 ml/min Glucose 109 H (74-106) mg/dL POC Glucose (70-99) mg/dL Lactic Acid 1.2 (0.4-2.0) mmol/L Calcium 7.4 L (8.5-10.1) mg/dL Phosphorus 2.6 (2.6-4.7) mg/dL Magnesium 2.0 (1.8-2.4) mg/dL Total Bilirubin 0.7 (0.2-1.0) mg/dL AST 13 L (15-37) IU/L ALT 12 L (14-63) IU/L Alkaline Phosphatase 87 (46-116) U/L Troponin I (0.000-0.056) ng/mL Total Protein 6.4 (6.4-8.2) g/dL Albumin 2.4 L (3.4-5.0) g/dL Globulin 4.0 (2.6-4.0) g/dL Albumin/Globulin Ratio 0.6 L (0.9-1.6) Urine Color Urine Appearance Urine pH (5.0-8.0) Ur Specific [place] (1.001-1.035) Urine Protein (NEGATIVE) mg/dL Urine Glucose (UA) (NEGATIVE) mg/dL Urine Ketones (NEGATIVE) mg/dL Urine Occult Blood (NEGATIVE) Urine Nitrite (NEGATIVE) Urine Bilirubin (NEGATIVE) Urine Urobilinogen (<2.0) EU/dL Ur Leukocyte Esterase (NEGATIVE) SARS-CoV-2 RNA (NISHA) (NEGATIVE) Blood Type Antibody Screen Crossmatch 04/16/21 04/16/21 04/16/21 Range/Units 06:09 06:20 12:56 WBC (4.0-11.0) K/uL RBC (4.30-5.90) M/uL Hgb (12.0-16.0) g/dL Hct (36.0-46.0) % MCV (80.0-98.0) fL MCH (27.0-32.0) pg MCHC (31.0-37.0) g/dL RDW Std Deviation (28.0-62.0) fl RDW Coeff of Dar[place] (11.0-15.0) % Plt Count (150-400) K/uL MPV (7.40-12.00) fL Neut % (Auto) (48.0-80.0) % Lymph % (Auto) (16.0-40.0) % [place] % (Auto) (0.0-15.0) % Eos % (Auto) (0.0-7.0) % Baso % (Auto) (0.0-1.5) % Neut # (Auto) (1.4-5.7) K/uL Lymph # (Auto) (0.6-2.4) K/uL [place] # (Auto) (0.0-0.8) K/uL Eos # (Auto) (0.0-0.7) K/uL Baso # (Auto) (0.0-0.1) K/uL Nucleated RBC % /100WBC Nucleated RBCs # K/uL Sodium (136-145) mmol/L Potassium (3.5-5.1) mmol/L Chloride (98-107) mmol/L Carbon Dioxide (21.0-32.0) mmol/L BUN (7.0-18.0) mg/dL Creatinine (0.6-1.0) mg/dL Est Cr Clr Drug Dosing Estimated GFR (MDRD) ml/min Glucose (74-106) mg/dL POC Glucose 102 H (70-99) mg/dL Lactic Acid (0.4-2.0) mmol/L Calcium (8.5-10.1) mg/dL Phosphorus (2.6-4.7) mg/dL Magnesium (1.8-2.4) mg/dL Total Bilirubin (0.2-1.0) mg/dL AST (15-37) IU/L ALT (14-63) IU/L Alkaline Phosphatase (46-116) U/L Troponin I 0.742 H* 0.650 H* (0.000-0.056) ng/mL Total Protein (6.4-8.2) g/dL Albumin (3.4-5.0) g/dL Globulin (2.6-4.0) g/dL Albumin/Globulin Ratio (0.9-1.6) Urine Color Urine Appearance Urine pH (5.0-8.0) Ur Specific [place] (1.001-1.035) Urine Protein (NEGATIVE) mg/dL Urine Glucose (UA) (NEGATIVE) mg/dL Urine Ketones (NEGATIVE) mg/dL Urine Occult Blood (NEGATIVE) Urine Nitrite (NEGATIVE) Urine Bilirubin (NEGATIVE) Urine Urobilinogen (<2.0) EU/dL Ur Leukocyte Esterase (NEGATIVE) SARS-CoV-2 RNA (NISHA) (NEGATIVE) Blood Type Antibody Screen Crossmatch Charli Results Last 24 Hours: Microbiology 04/15/21 09:40 Aerobic Blood Culture - Preliminary Blood - Venous - Lab Draw NO GROWTH AFTER 1 DAY Anaerobic Blood Culture - Final 04/15/21 09:35 Aerobic Blood Culture - Preliminary Blood - Venous NO GROWTH AFTER 1 DAY Anaerobic Blood Culture - Preliminary NO GROWTH AFTER 1 DAY Med Orders - Current: Current Medications Piperacillin Sod/Tazobactam (Sod 3.375 gm/ Sodium Chloride) 50 mls @ 100 mls/hr IV Q6H [facility] Last Admin: 04/16/21 14:29 Dose: 100 mls/hr Documented by: Lactated Ringer's (Ringers, Lactated) 1,000 mls @ 125 mls/hr IV ASDIRECTED [facility] Last Admin: 04/15/21 23:29 Dose: 125 mls/hr Documented by: Azithromycin 500 mg/ Sodium (Chloride) 250 mls @ 250 mls/hr IV Q24H [facility] Last Admin: 04/15/21 23:29 Dose: 250 mls/hr Documented by: Sodium Chloride (Normal Saline) 500 mls @ 500 mls/hr IV .BOLUS [facility] Last Admin: 04/16/21 00:37 Dose: 500 mls/hr Documented by: Pantoprazole Sodium 40 mg/ (Sodium Chloride) 10 mls @ 300 mls/hr IV Q12H [facility] Morphine Sulfate (Morphine 2 Mg/Ml Syringe) 2 mg IVPUSH Q2H PRN PRN Reason: Pain (severe 7-10) Ondansetron HCl (Ondansetron 4 Mg/2 Ml Sdv) 4 mg IVPUSH Q4H PRN PRN Reason: nausea Sodium Chloride (Sodium Chloride 0.9% 10 Ml Syringe) 10 ml FLUSH ASDIRECTED PRN PRN Reason: Keep Vein Open Last Admin: 04/15/21 09:49 Dose: 10 ml Documented by: Sodium Chloride (Sodium Chloride 0.9% 2.5 Ml Syringe) 2.5 ml FLUSH ASDIRECTED PRN PRN Reason: Keep Vein Open Last Admin: 04/15/21 09:50 Dose: 2.5 ml Documented by: Discontinued Medications Azithromycin (Azithromycin 500 Mg Vial) 500 mg IV Q24H [facility] Last Admin: 04/15/21 23:53 Dose: Not Given Documented by: Pantoprazole Sodium 80 mg/ (Sodium Chloride) 10 mls @ 300 mls/hr IV NOW ONE Stop: 04/15/21 09:24 Last Admin: 04/15/21 09:49 Dose: 300 mls/hr Documented by: Piperacillin Sod/Tazobactam (Sod 3.375 gm/ Sodium Chloride) 50 mls @ 100 mls/hr IV ONETIME ONE Stop: 04/15/21 13:13 Last Admin: 04/15/21 13:25 Dose: 100 mls/hr Documented by: Lactated Ringer's (Ringers, Lactated) 1,000 mls @ 999 mls/hr IV .BOLUS ONE Stop: 04/15/21 13:45 Last Admin: 04/15/21 13:25 Dose: 999 mls/hr Documented by: Lactated Ringer's (Ringers, Lactated) 500 mls @ 1,000 mls/hr IV .BOLUS ONE Stop: 04/15/21 13:14 Last Admin: 04/15/21 13:25 Dose: 1,000 mls/hr Documented by: Iopamidol (Iopamidol 755 Mg/Ml 500 Ml Multipack Bottle) 50 ml IVPUSH ONETIME S TA Stop: 04/15/21 16:25 Last Admin: 04/15/21 16:25 Dose: 50 ml Documented by: Morphine Sulfate (Morphine 4 Mg/Ml Vial) 2 mg IVPUSH Q2H PRN PRN Reason: Pain (severe 7-10) Stop: 04/16/21 20:20 - Exam General: Alert, Oriented, Cooperative HEENT: Pupils Equal, Pupils Reactive Lungs: Normal Respiratory Effort Cardiovascular: Regular Rate GI/Abdominal Exam: Soft, Non-Tender, No Distention, No Mass Skin: Warm, Dry, Intact Sepsis Event Note - Evaluation Sepsis Screening Result: No Definite Risk - Focused Exam Vital Signs: Vital Signs Temp Temp Pulse Resp BP BP Pulse Ox 04/16/21 15:30 36.6 C 81 19 138/61 04/16/21 14:02 36.8 C 127/58 L 04/16/21 12:05 36.9 C 75 16 112/53 L 92 L 04/16/21 11:19 36.6 C 80 20 128/61 92 L 04/16/21 11:04 36.6 C 79 20 120/59 L 92 L 04/16/21 08:10 36.6 C 87 16 119/58 L 93 L 04/16/21 04:11 Pulse Ox 04/16/21 15:30 04/16/21 14:02 04/16/21 12:05 04/16/21 11:19 04/16/21 11:04 04/16/21 08:10 04/16/21 04:11 93 L Consult PN Assessment/Plan (1) Acute cholecystitis SNOMED Code(s): 54903092 Code(s): K81.0 - ACUTE CHOLECYSTITIS Current Visit: Yes (2) Anemia SNOMED Code(s): 629289430 Code(s): D64.9 - ANEMIA, UNSPECIFIED Current Visit: Yes (3) Elevated troponin SNOMED Code(s): 404584708, 935107368, 099626208 Code(s): R77.8 - OTHER SPECIFIED ABNORMALITIES OF PLASMA PROTEINS Current V isit: Yes Problem List Initiated/Reviewed/Updated: Yes My Orders Last 24 Hours: I visited with my surgical colleague as well as anesthesia. The patient Plan: The patient had an US this am that was normal other than gallstones in the gallbladder. MRI of the abdomen was obtained to discern if there was infla mmation or not. This showed gallstone with a thickened and distended gallbladder consistent with acute cholecystitis. Cardiology was consulted and an echo was performed today. The patient feels much better and no longer has abdominal pain. I visited with anesthesia and my partner. We agreed that the patient would be at a higher risk for any surgical procedure. I visited with the patient's power of prosecuting attorney, her sister Rosie. I explained the pathophysiology of acute cholecystitis. We also discussed her anemia and the questionable episode of coffee ground emesis. I discussed that if she didn't have her current and past co-morbidities, I would likely perform an EGD then doing cholecystectomy. However the patient is DNR and DNI and carries a higher perioperative risk. I would favor a conservative approach which would include daily PPI therapy and continued antibiotic treatment for her cholecystitis. She is currently improving on these therapies. If she were to get worse (septic, unstable vitals, worsening abdominal pain) I would transfer her for a cholecystostomy tube instead. Her power of prosecuting attorney agreed and does not want to pursue surgery at this time. She would like surgery to be the last possible treatment course. Would advance patients diet to clears at this time. Continue IV antibiotics for tonight. Will recheck labs in am. If WBC remains normal can transition to oral anitbiotics (cipro and flagyl) as well as po PPI. Will continue to follow along.
--- NOTE | 2021-04-16 16:09 | MR ---
INDICATION: Cholecystitis. TECHNIQUE: An MRCP, including 2D, 3D and maximum intensity projection imaging, was performed. COMPARISON: Today`s right upper quadrant ultrasound and the abdomen/pelvis CT performed yesterday. FINDINGS: Motion artifact degrades multiple images. Small stones are noted in the gallbladder. The gallbladder wall is edematous/thickened, measuring up to roughly 5 mm. No pericholecystic fluid is apparent. The common bile duct is smoothly marginated and measures up to 6 mm in diameter. No filling defect is evident. The intrahepatic ducts are normal in caliber and appear to branch and taper in a grossly normal fashion. The pancreatic duct is normal. The liver is unremarkable except for several small cysts. The spleen, adrenal glands and pancreas are negative. Renal cysts and renal parenchymal scarring is noted bilaterally. No bowel abnormality, lymphadenopathy or free fluid is demonstrated. IMPRESSION: 1. Cholelithiasis and edematous/thickened gallbladder wall to 5 mm, consistent with acute cholecystitis. 2. Normal bile ducts. 3. Several small liver cysts. 4. Renal cysts and renal parenchymal scarring bilaterally. Dictated by Farhad Peñaloza MD @ 04/16/2021 4:07:31 PM (Electronically Signed)
[2021-04-16] MEDS: Lactated Ringers 1,000 ML IV SCH (16:25)
[2021-04-16] MEDS: Pantoprazole 40 MG in Sodium Chloride 0.9% 10 ML IV SCH (22:23)
[2021-04-16] MEDS: Azithromycin 500 MG in Sodium Chloride 0.9% 250 ML IV SCH (22:26)
[2021-04-17] MEDS: Piperacillin/Tazobactam 3.375 GM in Sodium Chloride 0.9% 50 ML IV SCH ×4 (01:37→19:07)
[2021-04-17] MEDS: Lactated Ringers 1,000 ML IV SCH ×2 (02:50→15:37)
[2021-04-17 07:37] LABS: BLOOD UREA NITROGEN,BUN 10 mg/dL (7.0-18.0); CARBON DIOXIDE,CO2 24.6 mmol/L (21.0-32.0); CHLORIDE,CL 105 mmol/L (98-107); GLUCOSE RANDOM 91 mg/dL (74-106); POTASSIUM,K 3.7 mmol/L (3.5-5.1); SODIUM,NA 140 mmol/L (136-145)
[2021-04-17] MEDS: Pantoprazole 40 MG in Sodium Chloride 0.9% 10 ML IV SCH ×2 (09:20→21:04)
--- NOTE | 2021-04-17 09:46 | PCM.SN.2 ---
- Free Text/Narrative Note: Patient is a 76-year-old female who presented the emergency room with nausea and vomiting. She had an elevated lactate as well as troponins. There is a question of a possible GI bleed. The patient was anemic. She had an elevated white count and was found to have cholelithiasis with questionable thickening of the gallbladder wall and moderate distention suggesting acute cholecystitis. A right upper quadrant ultrasound was performed the next day. This showed multiple gallstones in the gallbladder and otherwise no other changes. She underwent an MRCP. This showed a thickened and inflamed gallbladder consistent with acute cholecystitis. The patient is being seen by cardiology. She was given IV fluids kept n.p.o. and given IV antibiotics. Her white count is now back to normal. Her troponins are trending downward. Her lactate is normal. Yesterday she was having no pain in the right upper quadrant. I came to see her this morning. The patient was slightly confused according to the nurse. I woke her up from sleep. She was comfortable. When I pushed on her abdomen she did have some mild tenderness to deep palpation of the right upper quadrant but was otherwise normal. Her white count this morning is still within normal limits. Her hemoglobin is now 9.7. I visited with her power of securities attorney last night. We discussed the risks and benefits of conservative management with antibiotics versus a cholecystostomy tube versus surgery. The patient is DNR/DNI and her family member would like to avoid surgery. We will transition the patient to oral antibiotics. Would treat with a 10-day course of ciprofloxacin and Flagyl. Will advance diet to regular. From a gallbladder standpoint, will follow up with her in clinic in 2 weeks. If she is discharged back [facility] and developed nausea and vomiting again or showing signs of sepsis, she should be transferred somewhere where she can get a cholecystostomy tube placed. Follow-up with cardiology per their recommendations. Will sign off at this point in time. Please call with any questions or concerns.
--- NOTE | 2021-04-17 14:14 | CONS ---
DATE OF CONSULTATION: 04/17/2021 DATE OF : 1945 PRIMARY CARE PHYSICIAN: Daniel Bishop MD REASON FOR CONSULTATION: Troponin elevation. HISTORY OF PRESENT ILLNESS: This is a 76-year-old female, history of a CVA with right hemiparesis, CKD, hyperlipidemia, hypertension, reported CAD with PCI, custodial resident. The patient was sent from custodial due to the concern of upper GI bleeding. Noted to have a coffee ground emesis, but reportedly with abdominal pain, nausea, vomiting, and the patient has dementia, the history is not very reliable. In the emergency room, troponin was positive. CT scan of the abdomen showing possible cholecystitis, but ultrasound was negative as well as found to have anemia. By asking the patient, the patient denied chest pain or shortness of breath. PAST MEDICAL HISTORY: Including CVA, right hemiparesis, CKD, hyperlipidemia, hypertension, CAD reportedly PCI, custodial resident. MEDICATIONS: Currently the patient on Zosyn, Zithromax, Protonix IV. SOCIAL HISTORY: Unobtainable. FAMILY HISTORY: Unobtainable as well. REVIEW OF SYSTEMS: Unobtainable. PHYSICAL EXAMINATION: VITAL SIGNS: Initial blood pressure 128/61, the current blood pressure is 112/53. Initial heart rate is 87, the current heart rate is 88. No fever, temperature 98, respirations 12 to 16, O2 saturation is 91% to 93% on room air. HEENT: No JVD. Mild pale. No jaundice. HEART: Regular rate and rhythm. No murmur. LUNGS: Bilateral crackles. ABDOMEN: Soft, mildly tender. No guarding. Bowel sounds present. EXTREMITIES: Legs, no edema. INVESTIGATIONS: CBC showed WBC 12, hematocrit 28, hemoglobin of 487. Sodium 133, potassium 4.5, chloride 101, BUN 17, creatinine 1.4 and baseline 1.2. Alkaline phosphatase is elevated mildly at 123. Total bilirubin is normal at 0.7. Lipase is normal. Lactic acid is 3.1, elevated. Troponin was elevated at 0.4, 0.5, 0.8, and 0.7. Echocardiogram: Preliminary report, ejection fraction 50% to 55%, possible hypokinesis in the lateral wall, anterolateral wall in the basal portion, trace MR, trace TR. EKG, 04/15/2021, sinus rhythm, heart rate 88, ME 138, QRS 69, QTc 581. I did not appreciate any significant ST elevation or depression. No Q-waves. ASSESSMENT AND PLAN: This is a 76-year-old female, history of cerebrovascular accident, right weakness, right hemiparesis, hyperlipidemia, hypertension, coronary artery disease, percutaneous coronary intervention, chronic kidney disease on anticoagulation with Xarelto, probably for patent foramen ovale as well as a stroke with anemia, concerning upper gastrointestinal bleeding and troponin elevation in the setting of sepsis, unclear sources. Troponin elevation, does not seem to be peaking, most likely demanding ischemia, probably from anemia or sepsis. The patient is not a very good historian. At this point, with probably conservative management so far and treat anemia, treat sepsis. I look at the echocardiogram. The ejection fraction seemed to be preserved. No significant valvular disease. If the patient would require the upper endoscopy or colonoscopy, she should be medically optimized from the cardiac standpoint for the endoscopy and colonoscopy given the low-risk procedure and if the cholecystectomy needs to be done urgently in the hospital due to impending severe sepsis I probably will not do any ischemic workup or further workup given urgent nature of the surgery if the cholecystectomy would be required urgently. Otherwise, we will hold off on the anticoagulation given the concern about upper gastrointestinal bleeding. ZAIN / IQRA /[id number]
--- NOTE | 2021-04-17 14:47 | PCM.PN ---
- General Info Date of Service: 04/17/21 - Review of Systems Systems Review Comment:: denies any abdominal pain, no nausea, - Patient Data Vitals - Most Recent: Last Vital Signs Temp 36.2 C 04/17/21 08:00 Pulse 81 04/17/21 08:00 Resp 20 04/17/21 08:00 BP 113/66 04/17/21 08:00 Pulse Ox 93 L 04/17/21 08:00 Weight - Most Recent: 60.963 kg I&O - Last 24 Hours: Intake & Output 04/16/21 04/17/21 04/17/21 22:59 06:59 14:59 Intake Total 925 1484 50 Output Total 1087 Balance 925 397 50 Lab Results Last 24 Hours: Laboratory Results - last 24 hr 04/15/21 04/16/21 04/16/21 Range/Units 09:32 16:33 17:46 WBC 7.02 (4.0-11.0) K/uL RBC 4.31 (4.30-5.90) M/uL Hgb 9.5 L (12.0-16.0) g/dL Hct 31.9 L (36.0-46.0) % MCV 74.0 L (80.0-98.0) fL MCH 22.0 L (27.0-32.0) pg MCHC 29.8 L (31.0-37.0) g/dL RDW Std Deviation 51.6 (28.0-62.0) fl RDW Coeff of Darling 19 H (11.0-15.0) % Plt Count 378 (150-400) K/uL MPV 10.00 (7.40-12.00) fL Neut % (Auto) 57.8 (48.0-80.0) % Lymph % (Auto) 27.4 (16.0-40.0) % [place] % (Auto) 11.0 (0.0-15.0) % Eos % (Auto) 3.1 (0.0-7.0) % Baso % (Auto) 0.7 (0.0-1.5) % Neut # (Auto) 4.1 (1.4-5.7) K/uL Lymph # (Auto) 1.9 (0.6-2.4) K/uL [place] # (Auto) 0.8 (0.0-0.8) K/uL Eos # (Auto) 0.2 (0.0-0.7) K/uL Baso # (Auto) 0.1 (0.0-0.1) K/uL Nucleated RBC % 0.0 /100WBC Nucleated RBCs # 0 K/uL Sodium (136-145) mmol/L Potassium (3.5-5.1) mmol/L Chloride (98-107) mmol/L Carbon Dioxide (21.0-32.0) mmol/L BUN (7.0-18.0) mg/dL Creatinine (0.6-1.0) mg/dL Est Cr Clr Drug Dosing Estimated GFR (MDRD) ml/min Glucose (74-106) mg/dL POC Glucose 86 (70-99) mg/dL Calcium (8.5-10.1) mg/dL Total Bilirubin (0.2-1.0) mg/dL AST (15-37) IU/L ALT (14-63) IU/L Alkaline Phosphatase (46-116) U/L Troponin I (0.000-0.056) ng/mL Total Protein (6.4-8.2) g/dL Albumin (3.4-5.0) g/dL Globulin (2.6-4.0) g/dL Albumin/Globulin Ratio (0.9-1.6) Crossmatch See Detail 04/17/21 04/17/21 04/17/21 Range/Units 00:40 05:56 05:56 WBC 7.35 (4.0-11.0) K/uL RBC 4.45 (4.30-5.90) M/uL Hgb 9.7 L (12.0-16.0) g/dL Hct 32.9 L (36.0-46.0) % MCV 73.9 L (80.0-98.0) fL MCH 21.8 L (27.0-32.0) pg MCHC 29.5 L (31.0-37.0) g/dL RDW Std Deviation 52.1 (28.0-62.0) fl RDW Coeff of Darling 19 H (11.0-15.0) % Plt Count 384 (150-400) K/uL MPV 10.40 (7.40-12.00) fL Neut % (Auto) 51.2 (48.0-80.0) % Lymph % (Auto) 33.1 (16.0-40.0) % [place] % (Auto) 10.7 (0.0-15.0) % Eos % (Auto) 4.2 (0.0-7.0) % Baso % (Auto) 0.8 (0.0-1.5) % Neut # (Auto) 3.8 (1.4-5.7) K/uL Lymph # (Auto) 2.4 (0.6-2.4) K/uL [place] # (Auto) 0.8 (0.0-0.8) K/uL Eos # (Auto) 0.3 (0.0-0.7) K/uL Baso # (Auto) 0.1 (0.0-0.1) K/uL Nucleated RBC % 0.0 /100WBC Nucleated RBCs # 0 K/uL Sodium 140 (136-145) mmol/L Potassium 3.7 (3.5-5.1) mmol/L Chloride 105 (98-107) mmol/L Carbon Dioxide 24.6 (21.0-32.0) mmol/L BUN 10 (7.0-18.0) mg/dL Creatinine 1.2 H (0.6-1.0) mg/dL Est Cr Clr Drug Dosing TNP Estimated GFR (MDRD) 43.7 ml/min Glucose 91 (74-106) mg/dL POC Glucose 86 (70-99) mg/dL Calcium 8.1 L (8.5-10.1) mg/dL Total Bilirubin 0.7 (0.2-1.0) mg/dL AST 17 (15-37) IU/L ALT 15 (14-63) IU/L Alkaline Phosphatase 87 (46-116) U/L Troponin I 0.432 H* (0.000-0.056) ng/mL Total Protein 7.1 (6.4-8.2) g/dL Albumin 2.5 L (3.4-5.0) g/dL Globulin 4.6 H (2.6-4.0) g/dL Albumin/Globulin Ratio 0.5 L (0.9-1.6) Crossmatch 04/17/21 04/17/21 Range/Units 06:06 12:39 WBC (4.0-11.0) K/uL RBC (4.30-5.90) M/uL Hgb (12.0-16.0) g/dL Hct (36.0-46.0) % MCV (80.0-98.0) fL MCH (27.0-32.0) pg MCHC (31.0-37.0) g/dL RDW Std Deviation (28.0-62.0) fl RDW Coeff of Darling (11.0-15.0) % Plt Count (150-400) K/uL MPV (7.40-12.00) fL Neut % (Auto) (48.0-80.0) % Lymph % (Auto) (16.0-40.0) % [place] % (Auto) (0.0-15.0) % Eos % (Auto) (0.0-7.0) % Baso % (Auto) (0.0-1.5) % Neut # (Auto) (1.4-5.7) K/uL Lymph # (Auto) (0.6-2.4) K/uL [place] # (Auto) (0.0-0.8) K/uL Eos # (Auto) (0.0-0.7) K/uL Baso # (Auto) (0.0-0.1) K/uL Nucleated RBC % /100WBC Nucleated RBCs # K/uL Sodium (136-145) mmol/L Potassium (3.5-5.1) mmol/L Chloride (98-107) mmol/L Carbon Dioxide (21.0-32.0) mmol/L BUN (7.0-18.0) mg/dL Creatinine (0.6-1.0) mg/dL Est Cr Clr Drug Dosing Estimated GFR (MDRD) ml/min Glucose (74-106) mg/dL POC Glucose 90 91 (70-99) mg/dL Calcium (8.5-10.1) mg/dL Total Bilirubin (0.2-1.0) mg/dL AST (15-37) IU/L ALT (14-63) IU/L Alkaline Phosphatase (46-116) U/L Troponin I (0.000-0.056) ng/mL Total Protein (6.4-8.2) g/dL Albumin (3.4-5.0) g/dL Globulin (2.6-4.0) g/dL Albumin/Globulin Ratio (0.9-1.6) Crossmatch Charli Results Last 24 Hours: Microbiology 04/15/21 09:40 Aerobic Blood Culture - Preliminary Blood - Venous - Lab Draw NO GROWTH AFTER 2 DAYS Anaerobic Blood Culture - Final 04/15/21 09:35 Aerobic Blood Culture - Preliminary Blood - Venous NO GROWTH AFTER 2 DAYS Anaerobic Blood Culture - Preliminary NO GROWTH AFTER 2 DAYS 04/16/21 21:00 Stool Occult Blood (CHARLI) - Final Stool / Feces NEGATIVE OCCULT BLOOD REFERENCE RANGE: NEGATIVE Med Orders - Current: Current Medications Piperacillin Sod/Tazobactam (Sod 3.375 gm/ Sodium Chloride) 50 mls @ 100 mls/hr IV Q6H [facility] Last Admin: 04/17/21 13:48 Dose: 100 mls/hr Documented by: Lactated Ringer's (Ringers, Lactated) 1,000 mls @ 125 mls/hr IV ASDIRECTED [facility] Last Admin: 04/17/21 02:50 Dose: 125 mls/hr Documented by: Azithromycin 500 mg/ Sodium (Chloride) 250 mls @ 250 mls/hr IV Q24H [facility] Last Admin: 04/16/21 22:26 Dose: 250 mls/hr Documented by: Sodium Chloride (Normal Saline) 500 mls @ 500 mls/hr IV .BOLUS [facility] Last Admin: 04/16/21 00:37 Dose: 500 mls/hr Documented by: Pantoprazole Sodium 40 mg/ (Sodium Chloride) 10 mls @ 300 mls/hr IV Q12H [facility] Last Admin: 04/17/21 09:20 Dose: 300 mls/hr Documented by: Morphine Sulfate (Morphine 2 Mg/Ml Syringe) 2 mg IVPUSH Q2H PRN PRN Reason: Pain (severe 7-10) Ondansetron HCl (Ondansetron 4 Mg/2 Ml Sdv) 4 mg IVPUSH Q4H PRN PRN Reason: nausea Sodium Chloride (Sodium Chloride 0.9% 10 Ml Syringe) 10 ml FLUSH ASDIRECTED PRN PRN Reason: Keep Vein Open Last Admin: 04/15/21 09:49 Dose: 10 ml Documented by: Sodium Chloride (Sodium Chloride 0.9% 2.5 Ml Syringe) 2.5 ml FLUSH ASDIRECTED PRN PRN Reason: Keep Vein Open Last Admin: 04/15/21 09:50 Dose: 2.5 ml Documented by: Discontinued Medications Azithromycin (Azithromycin 500 Mg Vial) 500 mg IV Q24H [facility] Last Admin: 04/15/21 23:53 Dose: Not Given Documented by: Pantoprazole Sodium 80 mg/ (Sodium Chloride) 10 mls @ 300 mls/hr IV NOW ONE Stop: 04/15/21 09:24 Last Admin: 04/15/21 09:49 Dose: 300 mls/hr Documented by: Piperacillin Sod/Tazobactam (Sod 3.375 gm/ Sodium Chloride) 50 mls @ 100 mls/hr IV ONETIME ONE Stop: 04/15/21 13:13 Last Admin: 04/15/21 13:25 Dose: 100 mls/hr Documented by: Lactated Ringer's (Ringers, Lactated) 1,000 mls @ 999 mls/hr IV .BOLUS ONE Stop: 04/15/21 13:45 Last Admin: 04/15/21 13:25 Dose: 999 mls/hr Documented by: Lactated Ringer's (Ringers, Lactated) 500 mls @ 1,000 mls/hr IV .BOLUS ONE Stop: 04/15/21 13:14 Last Admin: 04/15/21 13:25 Dose: 1,000 mls/hr Documented by: Iopamidol (Iopamidol 755 Mg/Ml 500 Ml Multipack Bottle) 50 ml IVPUSH ONETIME STA Stop: 04/15/21 16:25 Last Admin: 04/15/21 16:25 Dose: 50 ml Documented by: Morphine Sulfate (Morphine 4 Mg/Ml Vial) 2 mg IVPUSH Q2H PRN PRN Reason: Pain (severe 7-10) Stop: 04/16/21 20:20 - Exam General: Cooperative Lungs: Clear to Auscultation, Normal Respiratory Effort Cardiovascular: Regular Rate, Regular Rhythm GI/Abdominal Exam: Normal Bowel Sounds, Soft, Non-Tender Extremities: No Pedal Edema Skin: Warm, Dry, Intact Neurological: No New Focal Deficit - Patient Data Lab Results Last 24 hrs: Laboratory Results - last 24 hr 1104/16/21 04/16/21 Range/Units 09:32 16:33 17:46 WBC 7.02 (4.0-11.0) K/uL RBC 4.31 (4.30-5.90) M/uL Hgb 9.5 L (12.0-16.0) g/dL Hct 31.9 L (36.0-46.0) % MCV 74.0 L (80.0-98.0) fL MCH 22.0 L (27.0-32.0) pg MCHC 29.8 L (31.0-37.0) g/dL RDW Std Deviation 51.6 (28.0-62.0) fl RDW Coeff of Darling 19 H (11.0-15.0) % Plt Count 378 (150-400) K/uL MPV 10.00 (7.40-12.00) fL Neut % (Auto) 57.8 (48.0-80.0) % Lymph % (Auto) 27.4 (16.0-40.0) % Mckean % (Auto) 11.0 (0.0-15.0) % Eos % (Auto) 3.1 (0.0-7.0) % Baso % (Auto) 0.7 (0.0-1.5) % Neut # (Auto) 4.1 (1.4-5.7) K/uL Lymph # (Auto) 1.9 (0.6-2.4) K/uL [place] # (Auto) 0.8 (0.0-0.8) K/uL Eos # (Auto) 0.2 (0.0-0.7) K/uL Baso # (Auto) 0.1 (0.0-0.1) K/uL Nucleated RBC % 0.0 /100WBC Nucleated RBCs # 0 K/uL Sodium (136-145) mmol/L Potassium (3.5-5.1) mmol/L Chloride (98-107) mmol/L Carbon Dioxide (21.0-32.0) mmol/L BUN (7.0-18.0) mg/dL Creatinine (0.6-1.0) mg/dL Est Cr Clr Drug Dosing Estimated GFR (MDRD) ml/min Glucose (74-106) mg/dL POC Glucose 86 (70-99) mg/dL Calcium (8.5-10.1) mg/dL Total Bilirubin (0.2-1.0) mg/dL AST (15-37) IU/L ALT (14-63) IU/L Alkaline Phosphatase (46-116) U/L Troponin I (0.000-0.056) ng/mL Total Protein (6.4-8.2) g/dL Albumin (3.4-5.0) g/dL Globulin (2.6-4.0) g/dL Albumin/Globulin Ratio (0.9-1.6) Crossmatch See Detail 04/17/21 04/17/21 04/17/21 Range/Units 00:40 05:56 05:56 WBC 7.35 (4.0-11.0) K/uL RBC 4.45 (4.30-5.90) M/uL Hgb 9.7 L (12.0-16.0) g/dL Hct 32.9 L (36.0-46.0) % MCV 73.9 L (80.0-98.0) fL MCH 21.8 L (27.0-32.0) pg MCHC 29.5 L (31.0-37.0) g/dL RDW Std Deviation 52.1 (28.0-62.0) fl RDW Coeff of Darling 19 H (11.0-15.0) % Plt Count 384 (150-400) K/uL MPV 10.40 (7.40-12.00) fL Neut % (Auto) 51.2 (48.0-80.0) % Lymph % (Auto) 33.1 (16.0-40.0) % Mckean % (Auto) 10.7 (0.0-15.0) % Eos % (Auto) 4.2 (0.0-7.0) % Baso % (Auto) 0.8 (0.0-1.5) % Neut # (Auto) 3.8 (1.4-5.7) K/uL Lymph # (Auto) 2.4 (0.6-2.4) K/uL [place]kean # (Auto) 0.8 (0.0-0.8) K/uL Eos # (Auto) 0.3 (0.0-0.7) K/uL Baso # (Auto) 0.1 (0.0-0.1) K/uL Nucleated RBC % 0.0 /100WBC Nucleated RBCs # 0 K/uL Sodium 140 (136-145) mmol/L Potassium 3.7 (3.5-5.1) mmol/L Chloride 105 (98-107) mmol/L Carbon Dioxide 24.6 (21.0-32.0) mmol/L BUN 10 (7.0-18.0) mg/dL Creatinine 1.2 H (0.6-1.0) mg/dL Est Cr Clr Drug Dosing TNP Estimated GFR (MDRD) 43.7 ml/min Glucose 91 (74-106) mg/dL POC Glucose 86 (70-99) mg/dL Calcium 8.1 L (8.5-10.1) mg/dL Total Bilirubin 0.7 (0.2-1.0) mg/dL AST 17 (15-37) IU/L ALT 15 (14-63) IU/L Alkaline Phosphatase 87 (46-116) U/L Troponin I 0.432 H* (0.000-0.056) ng/mL Total Protein 7.1 (6.4-8.2) g/dL Albumin 2.5 L (3.4-5.0) g/dL Globulin 4.6 H (2.6-4.0) g/dL Albumin/Globulin Ratio 0.5 L (0.9-1.6) Crossmatch 04/17/21 04/17/21 Range/Units 06:06 12:39 WBC (4.0-11.0) K/uL RBC (4.30-5.90) M/uL Hgb (12.0-16.0) g/dL Hct (36.0-46.0) % MCV (80.0-98.0) fL MCH (27.0-32.0) pg MCHC (31.0-37.0) g/dL RDW Std Deviation (28.0-62.0) fl RDW Coeff of Darling (11.0-15.0) % Plt Count (150-400) K/uL MPV (7.40-12.00) fL Neut % (Auto) (48.0-80.0) % Lymph % (Auto) (16.0-40.0) % Mckean % (Auto) (0.0-15.0) % Eos % (Auto) (0.0-7.0) % Baso % (Auto) (0.0-1.5) % Neut # (Auto) (1.4-5.7) K/uL Lymph # (Auto) (0.6-2.4) K/uL [place] # (Auto) (0.0-0.8) K/uL Eos # (Auto) (0.0-0.7) K/uL Baso # (Auto) (0.0-0.1) K/uL Nucleated RBC % /100WBC Nucleated RBCs # K/uL Sodium (136-145) mmol/L Potassium (3.5-5.1) mmol/L Chloride (98-107) mmol/L Carbon Dioxide (21.0-32.0) mmol/L BUN (7.0-18.0) mg/dL Creatinine (0.6-1.0) mg/dL Est Cr Clr Drug Dosing Estimated GFR (MDRD) ml/min Glucose (74-106) mg/dL POC Glucose 90 91 (70-99) mg/dL Calcium (8.5-10.1) mg/dL Total Bilirubin (0.2-1.0) mg/dL AST (15-37) IU/L ALT (14-63) IU/L Alkaline Phosphatase (46-116) U/L Troponin I (0.000-0.056) ng/mL Total Protein (6.4-8.2) g/dL Albumin (3.4-5.0) g/dL Globulin (2.6-4.0) g/dL Albumin/Globulin Ratio (0.9-1.6) Crossmatch Result Diagrams: 04/17/21 05:56 04/17/21 05:56 Charli Results Last 24 hrs: Microbiology 04/15/21 09:40 Aerobic Blood Culture - Preliminary Blood - Venous - Lab Draw NO GROWTH AFTER 2 DAYS Anaerobic Blood Culture - Final 04/15/21 09:35 Aerobic Blood Culture - Preliminary Blood - Venous NO GROWTH AFTER 2 DAYS Anaerobic Blood Culture - Preliminary NO GROWTH AFTER 2 DAYS 04/16/21 21:00 Stool Occult Blood (CHARLI) - Final Stool / Feces NEGATIVE OCCULT BLOOD REFERENCE RANGE: NEGATIVE Sepsis Event Note - Evaluation Sepsis Screening Result: No Definite Risk - Focused Exam Vital Signs: Vital Signs Temp Pulse Resp BP Pulse Ox 04/17/21 08:00 36.2 C 81 20 113/66 93 L 04/17/21 05:22 36.3 C 73 15 135/62 94 L - Problem List & Annotations (1) Sepsis SNOMED Code(s): 43686453 Code(s): A41.9 - SEPSIS, UNSPECIFIED ORGANISM Status: Acute Current Visit: Yes (2) Acute cholecystitis SNOMED Code(s): 97444165 Code(s): K81.0 - ACUTE CHOLECYSTITIS Status: Acute Current Visit: Yes (3) Anemia SNOMED Code(s): 058838417 Code(s): D64.9 - ANEMIA, UNSPECIFIED Status: Acute Current Visit: Yes (4) Elevated troponin SNOMED Code(s): 641399464, 031534342, 930050757 Code(s): R77.8 - OTHER SPECIFIED ABNORMALITIES OF PLASMA PROTEINS Status: Acute Current Visit: Yes - Problem List Review Problem List Initiated/Reviewed/Updated: Yes - My Orders Last 24 Hours: My Active Orders 04/16/21 21:00 Pantoprazole [ProTONIX IV] 40 mg Sodium Chloride 0.9% [Normal Saline] 10 ml IV Q12H 04/17/21 Lunch NPO [Nothing Per Oral Diet] [DIET] 04/18/21 05:11 CBC WITH AUTO DIFF [HEME] AM COMPREHENSIVE METABOLIC PN,CMP [CHEM] AM 04/19/21 05:11 CBC WITH AUTO DIFF [HEME] AM COMPREHENSIVE METABOLIC PN,CMP [CHEM] AM - Plan Plan:: 76 yo female admitted with sepsis from acute cholecystitis and possible pneumonia with acute kidney injury and troponin leak Possible pneumonia, sepsis: Zosyn, azithromycin, lactic acid normalized, possible aspiration, speech consulted, NPO until further evaluation Acute cholecystitis: Dr. Aguayo has been consulted, will continue medical management Microcytic anemia in setting of possible acute GI bleed: Hemmocult stool negative, Protonix, Troponin leak: likely not ACS, will continue to trend, Dr. Funez consulted
[2021-04-17] MEDS: Azithromycin 500 MG in Sodium Chloride 0.9% 250 ML IV SCH (22:07)
[2021-04-18] MEDS: Acetaminophen 325 MG Tab PO PRN (01:05)
[2021-04-18] MEDS: Piperacillin/Tazobactam 3.375 GM in Sodium Chloride 0.9% 50 ML IV SCH ×4 (01:10→19:01)
[2021-04-18] MEDS: Lactated Ringers 1,000 ML IV SCH (02:55)
[2021-04-18] MEDS: Morphine 2 MG/ML SYRINGE IVPUSH PRN ×2 (04:33→06:42)
[2021-04-18 07:58] LABS: BLOOD UREA NITROGEN,BUN 8 mg/dL (7.0-18.0); CARBON DIOXIDE,CO2 24.2 mmol/L (21.0-32.0); CHLORIDE,CL 102 mmol/L (98-107); GLUCOSE RANDOM 120 mg/dL (74-106); POTASSIUM,K 3.3 mmol/L (3.5-5.1); SODIUM,NA 138 mmol/L (136-145)
[2021-04-18] MEDS: Pantoprazole 40 MG in Sodium Chloride 0.9% 10 ML IV SCH ×2 (08:58→21:55)
[2021-04-18] MEDS ORDERED: Sodium Chloride 0.9% with KCl 1,000 ML IV SCH (11:45)
--- NOTE | 2021-04-18 12:08 | PCM.PN ---
- General Info Date of Service: 04/18/21 - Review of Systems Systems Review Comment:: denies any pain, no nausea - Patient Data Vitals - Most Recent: Last Vital Signs Temp 37.0 C 04/18/21 10:00 Pulse 78 04/18/21 10:00 Resp 20 04/18/21 10:00 BP 178/76 H 04/18/21 04:00 Pulse Ox 91 L 04/18/21 10:00 Weight - Most Recent: 60.963 kg I&O - Last 24 Hours: Intake & Output 04/17/21 04/18/21 04/18/21 22:59 06:59 14:59 Intake Total 1803 989 Output Total 1208 800 Balance 595 189 Lab Results Last 24 Hours: Laboratory Results - last 24 hr 04/17/21 04/18/21 04/18/21 Range/Units 12:39 05:40 05:40 WBC 8.77 (4.0-11.0) K/uL RBC 4.84 (4.30-5.90) M/uL Hgb 10.5 L (12.0-16.0) g/dL Hct 35.7 L (36.0-46.0) % MCV 73.8 L (80.0-98.0) fL MCH 21.7 L (27.0-32.0) pg MCHC 29.4 L (31.0-37.0) g/dL RDW Std Deviation 53.5 (28.0-62.0) fl RDW Coeff of Darling 20 H (11.0-15.0) % Plt Count 415 H (150-400) K/uL MPV 10.50 (7.40-12.00) fL Neut % (Auto) 68.8 (48.0-80.0) % Lymph % (Auto) 20.0 (16.0-40.0) % [place] % (Auto) 9.0 (0.0-15.0) % Eos % (Auto) 1.7 (0.0-7.0) % Baso % (Auto) 0.5 (0.0-1.5) % Neut # (Auto) 6.0 H (1.4-5.7) K/uL Lymph # (Auto) 1.8 (0.6-2.4) K/uL [place] # (Auto) 0.8 (0.0-0.8) K/uL Eos # (Auto) 0.2 (0.0-0.7) K/uL Baso # (Auto) 0.0 (0.0-0.1) K/uL Nucleated RBC % 0.0 /100WBC Nucleated RBCs # 0 K/uL Sodium 138 (136-145) mmol/L Potassium 3.3 L (3.5-5.1) mmol/L Chloride 102 (98-107) mmol/L Carbon Dioxide 24.2 (21.0-32.0) mmol/L BUN 8 (7.0-18.0) mg/dL Creatinine 1.3 H (0.6-1.0) mg/dL Est Cr Clr Drug Dosing TNP Estimated GFR (MDRD) 39.8 ml/min Glucose 120 H (74-106) mg/dL POC Glucose 91 (70-99) mg/dL Calcium 8.0 L (8.5-10.1) mg/dL Total Bilirubin 0.7 (0.2-1.0) mg/dL AST 14 L (15-37) IU/L ALT 13 L (14-63) IU/L Alkaline Phosphatase 91 (46-116) U/L Troponin I 0.241 H* (0.000-0.056) ng/mL Total Protein 7.7 (6.4-8.2) g/dL Albumin 2.8 L (3.4-5.0) g/dL Globulin 4.9 H (2.6-4.0) g/dL Albumin/Globulin Ratio 0.6 L (0.9-1.6) Charli Results Last 24 Hours: Microbiology 04/16/21 21:00 Helicobacter pylori Antigen - Final Stool / Feces 04/15/21 09:40 Aerobic Blood Culture - Preliminary Blood - Venous - Lab Draw NO GROWTH AFTER 3 DAYS Anaerobic Blood Culture - Final 04/15/21 09:35 Aerobic Blood Culture - Preliminary Blood - Venous NO GROWTH AFTER 3 DAYS Anaerobic Blood Culture - Preliminary NO GROWTH AFTER 3 DAYS Med Orders - Current: Current Medications Acetaminophen (Acetaminophen 325 Mg Tab) 650 mg PO Q6H PRN PRN Reason: Pain Last Admin: 04/18/21 01:05 Dose: 650 mg Documented by: Piperacillin Sod/Tazobactam (Sod 3.375 gm/ Sodium Chloride) 50 mls @ 100 mls/hr IV Q6H [facility] Last Admin: 04/18/21 06:49 Dose: 100 mls/hr Documented by: Azithromycin 500 mg/ Sodium (Chloride) 250 mls @ 250 mls/hr IV Q24H [facility] Last Admin: 04/17/21 22:07 Dose: 250 mls/hr Documented by: Sodium Chloride (Normal Saline) 500 mls @ 500 mls/hr IV .BOLUS [facility] Last Admin: 04/16/21 00:37 Dose: 500 mls/hr Documented by: Pantoprazole Sodium 40 mg/ (Sodium Chloride) 10 mls @ 300 mls/hr IV Q12H [facility] Last Admin: 04/18/21 08:58 Dose: 300 mls/hr Documented by: Potassium Chloride/Sodium Chloride (Normal Saline With 40 Meq Kcl) 1,000 mls @ 150 mls/hr IV ASDIRECTED [facility] Stop: 04/18/21 18:24 Morphine Sulfate (Morphine 2 Mg/Ml Syringe) 2 mg IVPUSH Q2H PRN PRN Reason: Pain (severe 7-10) Last Admin: 04/18/21 06:42 Dose: 2 mg Documented by: Ondansetron HCl (Ondansetron 4 Mg/2 Ml Sdv) 4 mg IVPUSH Q4H PRN PRN Reason: nausea Sodium Chloride (Sodium Chloride 0.9% 10 Ml Syringe) 10 ml FLUSH ASDIRECTED PRN PRN Reason: Keep Vein Open Last Admin: 04/15/21 09:49 Dose: 10 ml Documented by: Sodium Chloride (Sodium Chloride 0.9% 2.5 Ml Syringe) 2.5 ml FLUSH ASDIRECTED PRN PRN Reason: Keep Vein Open Last Admin: 04/15/21 09:50 Dose: 2.5 ml Documented by: Discontinued Medications Azithromycin (Azithromycin 500 Mg Vial) 500 mg IV Q24H [facility] Last Admin: 04/15/21 23:53 Dose: Not Given Documented by: Pantoprazole Sodium 80 mg/ (Sodium Chloride) 10 mls @ 300 mls/hr IV NOW ONE Stop: 04/15/21 09:24 Last Admin: 04/15/21 09:49 Dose: 300 mls/hr Documented by: Piperacillin Sod/Tazobactam (Sod 3.375 gm/ Sodium Chloride) 50 mls @ 100 mls/hr IV ONETIME ONE Stop: 04/15/21 13:13 Last Admin: 04/15/21 13:25 Dose: 100 mls/hr Documented by: Lactated Ringer's (Ringers, Lactated) 1,000 mls @ 999 mls/hr IV .BOLUS ONE Stop: 04/15/21 13:45 Last Admin: 04/15/21 13:25 Dose: 999 mls/hr Documented by: Lactated Ringer's (Ringers, Lactated) 500 mls @ 1,000 mls/hr IV .BOLUS ONE Stop: 04/15/21 13:14 Last Admin: 04/15/21 13:25 Dose: 1,000 mls/hr Documented by: Lactated Ringer's (Ringers, Lactated) 1,000 mls @ 125 mls/hr IV ASDIRECTED [facility] Last Admin: 04/18/21 02:55 Dose: 125 mls/hr Documented by: Iopamidol (Iopamidol 755 Mg/Ml 500 Ml Multipack Bottle) 50 ml IVPUSH ONETIME STA Stop: 04/15/21 16:25 Last Admin: 04/15/21 16:25 Dose: 50 ml Documented by: Morphine Sulfate (Morphine 4 Mg/Ml Vial) 2 mg IVPUSH Q2H PRN PRN Reason: Pain (severe 7-10) Stop: 04/16/21 20:20 - Exam General: Alert, Oriented Neck: Supple Lungs: Clear to Auscultation, Normal Respiratory Effort Cardiovascular: Regular Rate, Regular Rhythm GI/Abdominal Exam: Normal Bowel Sounds, Soft, Non-Tender Extremities: Non-Tender, No Pedal Edema Skin: Warm, Dry, Intact Neurological: No New Focal Deficit - Patient Data Lab Results Last 24 hrs: Laboratory Results - last 24 hr 04/17/21 04/18/21 04/18/21 Range/Units 12:39 05:40 05:40 WBC 8.77 (4.0-11.0) K/uL RBC 4.84 (4.30-5.90) M/uL Hgb 10.5 L (12.0-16.0) g/dL Hct 35.7 L (36.0-46.0) % MCV 73.8 L (80.0-98.0) fL MCH 21.7 L (27.0-32.0) pg MCHC 29.4 L (31.0-37.0) g/dL RDW Std Deviation 53.5 (28.0-62.0) fl RDW Coeff of Darling 20 H (11.0-15.0) % Plt Count 415 H (150-400) K/uL MPV 10.50 (7.40-12.00) fL Neut % (Auto) 68.8 (48.0-80.0) % Lymph % (Auto) 20.0 (16.0-40.0) % [place] % (Auto) 9.0 (0.0-15.0) % Eos % (Auto) 1.7 (0.0-7.0) % Baso % (Auto) 0.5 (0.0-1.5) % Neut # (Auto) 6.0 H (1.4-5.7) K/uL Lymph # (Auto) 1.8 (0.6-2.4) K/uL [place] # (Auto) 0.8 (0.0-0.8) K/uL Eos # (Auto) 0.2 (0.0-0.7) K/uL Baso # (Auto) 0.0 (0.0-0.1) K/uL Nucleated RBC % 0.0 /100WBC Nucleated RBCs # 0 K/uL Sodium 138 (136-145) mmol/L Potassium 3.3 L (3.5-5.1) mmol/L Chloride 102 (98-107) mmol/L Carbon Dioxide 24.2 (21.0-32.0) mmol/L BUN 8 (7.0-18.0) mg/dL Creatinine 1.3 H (0.6-1.0) mg/dL Est Cr Clr Drug Dosing TNP Estimated GFR (MDRD) 39.8 ml/min Glucose 120 H (74-106) mg/dL POC Glucose 91 (70-99) mg/dL Calcium 8.0 L (8.5-10.1) mg/dL Total Bilirubin 0.7 (0.2-1.0) mg/dL AST 14 L (15-37) IU/L ALT 13 L (14-63) IU/L Alkaline Phosphatase 91 (46-116) U/L Troponin I 0.241 H* (0.000-0.056) ng/mL Total Protein 7.7 (6.4-8.2) g/dL Albumin 2.8 L (3.4-5.0) g/dL Globulin 4.9 H (2.6-4.0) g/dL Albumin/Globulin Ratio 0.6 L (0.9-1.6) Result Diagrams: 04/18/21 05:40 04/18/21 05:40 Charli Results Last 24 hrs: Microbiology 04/16/21 21:00 Helicobacter pylori Antigen - Final Stool / Feces 04/15/21 09:40 Aerobic Blood Culture - Preliminary Blood - Venous - Lab Draw NO GROWTH AFTER 3 DAYS Anaerobic Blood Culture - Final 04/15/21 09:35 Aerobic Blood Culture - Preliminary Blood - Venous NO GROWTH AFTER 3 DAYS Anaerobic Blood Culture - Preliminary NO GROWTH AFTER 3 DAYS Sepsis Event Note - Evaluation Sepsis Screening Result: No Definite Risk - Focused Exam Vital Signs: Vital Signs Temp Pulse Resp BP Pulse Ox 04/18/21 10:00 37.0 C 78 20 91 L 04/18/21 04:00 35.9 C L 80 19 178/76 H 96 - Problem List & Annotations (1) Sepsis SNOMED Code(s): 60871857 Code(s): A41.9 - SEPSIS, UNSPECIFIED ORGANISM Status: Acute Current Visit: Yes (2) Acute cholecystitis SNOMED Code(s): 37089771 Code(s): K81.0 - ACUTE CHOLECYSTITIS Status: Acute Current Visit: Yes (3) Anemia SNOMED Code(s): 012980511 Code(s): D64.9 - ANEMIA, UNSPECIFIED Status: Acute Current Visit: Yes (4) Elevated troponin SNOMED Code(s): 982688089, 640277806, 293506399 Code(s): R77.8 - OTHER SPECIFIED ABNORMALITIES OF PLASMA PROTEINS Status: Acute Current Visit: Yes - Problem List Review Problem List Initiated/Reviewed/Updated: No - My Orders Last 24 Hours: My Active Orders 04/17/21 23:39 Acetaminophen [TylenoL] 650 mg PO Q6H PRN 04/18/21 Lunch Pureed Diet [DIET] 04/18/21 11:45 Sodium Chloride 0.9% with KCl [Normal Saline with 40 mEq KCl] 1,000 ml IV ASDIRECTED 04/19/21 05:11 CBC WITH AUTO DIFF [HEME] AM COMPREHENSIVE METABOLIC PN,CMP [CHEM] AM - Plan Plan:: 76 yo female admitted with sepsis from acute cholecystitis and possible pneumonia with acute kidney injury and troponin leak Possible pneumonia, sepsis: on Zosyn, azithromycin, lactic acid normalized, possible aspiration, speech consulted, will resume pureed diet, honey thick liquids Acute cholecystitis: Dr. Aguayo has been consulted, will continue medical management Microcytic anemia in setting of possible acute GI bleed: Hemmocult stool negative, Protonix, Troponin leak: likely not ACS, will continue to trend, Dr. Funez consulted
--- NOTE | 2021-04-18 14:10 | ECHO ---
EXAM DATE: 04/15/21 PATIENT'S AGE: 76 The ECHO report has been scanned into [employer] and can be seen in this patient's EMR (Electronic Medical Record) under the REPORTS section. The report has also been scanned into PACS. JAH
[2021-04-18] MEDS: Azithromycin 500 MG in Sodium Chloride 0.9% 250 ML IV SCH (22:04)
[2021-04-19] MEDS: Piperacillin/Tazobactam 3.375 GM in Sodium Chloride 0.9% 50 ML IV SCH ×4 (01:37→18:30)
--- NOTE | 2021-04-19 07:11 | PCM.PN ---
- General Info Date of Service: 04/19/21 - Review of Systems Systems Review Comment:: doing well - Patient Data Vitals - Most Recent: Last Vital Signs Temp 36.2 C 04/19/21 04:00 Pulse 78 04/19/21 04:00 Resp 18 04/19/21 04:00 BP 121/65 04/19/21 04:00 Pulse Ox 92 L 04/19/21 04:00 Weight - Most Recent: 60.963 kg I&O - Last 24 Hours: Intake & Output 04/18/21 04/19/21 04/19/21 22:59 06:59 14:59 Intake Total 1407 1370 Output Total 850 Balance 557 1370 Lab Results Last 24 Hours: Laboratory Results - last 24 hr 04/18/21 04/18/21 04/19/21 Range/Units 05:40 05:40 06:29 WBC 8.77 6.44 (4.0-11.0) K/uL RBC 4.84 4.44 (4.30-5.90) M/uL Hgb 10.5 L 9.7 L (12.0-16.0) g/dL Hct 35.7 L 33.3 L (36.0-46.0) % MCV 73.8 L 75.0 L (80.0-98.0) fL MCH 21.7 L 21.8 L (27.0-32.0) pg MCHC 29.4 L 29.1 L (31.0-37.0) g/dL RDW Std Deviation 53.5 55.1 (28.0-62.0) fl RDW Coeff of Darling 20 H 21 H (11.0-15.0) % Plt Count 415 H 386 (150-400) K/uL MPV 10.50 10.50 (7.40-12.00) fL Neut % (Auto) 68.8 45.7 L (48.0-80.0) % Lymph % (Auto) 20.0 37.6 (16.0-40.0) % Smith % (Auto) 9.0 11.0 (0.0-15.0) % Eos % (Auto) 1.7 5.1 (0.0-7.0) % Baso % (Auto) 0.5 0.6 (0.0-1.5) % Neut # (Auto) 6.0 H 2.9 (1.4-5.7) K/uL Lymph # (Auto) 1.8 2.4 (0.6-2.4) K/uL Smith # (Auto) 0.8 0.7 (0.0-0.8) K/uL Eos # (Auto) 0.2 0.3 (0.0-0.7) K/uL Baso # (Auto) 0.0 0.0 (0.0-0.1) K/uL Nucleated RBC % 0.0 0.0 /100WBC Nucleated RBCs # 0 0 K/uL Sodium 138 (136-145) mmol/L Potassium 3.3 L (3.5-5.1) mmol/L Chloride 102 (98-107) mmol/L Carbon Dioxide 24.2 (21.0-32.0) mmol/L BUN 8 (7.0-18.0) mg/dL Creatinine 1.3 H (0.6-1.0) mg/dL Est Cr Clr Drug Dosing TNP Estimated GFR (MDRD) 39.8 ml/min Glucose 120 H (74-106) mg/dL Calcium 8.0 L (8.5-10.1) mg/dL Total Bilirubin 0.7 (0.2-1.0) mg/dL AST 14 L (15-37) IU/L ALT 13 L (14-63) IU/L Alkaline Phosphatase 91 (46-116) U/L Troponin I 0.241 H* (0.000-0.056) ng/mL Total Protein 7.7 (6.4-8.2) g/dL Albumin 2.8 L (3.4-5.0) g/dL Globulin 4.9 H (2.6-4.0) g/dL Albumin/Globulin Ratio 0.6 L (0.9-1.6) Charli Results Last 24 Hours: Microbiology 04/16/21 21:00 Helicobacter pylori Antigen - Final Stool / Feces 04/15/21 09:40 Aerobic Blood Culture - Preliminary Blood - Venous - Lab Draw NO GROWTH AFTER 3 DAYS Anaerobic Blood Culture - Final 04/15/21 09:35 Aerobic Blood Culture - Preliminary Blood - Venous NO GROWTH AFTER 3 DAYS Anaerobic Blood Culture - Preliminary NO GROWTH AFTER 3 DAYS Med Orders - Current: Current Medications Acetaminophen (Acetaminophen 325 Mg Tab) 650 mg PO Q6H PRN PRN Reason: Pain Last Admin: 04/18/21 01:05 Dose: 650 mg Documented by: Piperacillin Sod/Tazobactam (Sod 3.375 gm/ Sodium Chloride) 50 mls @ 100 mls/hr IV Q6H [facility] Last Admin: 04/19/21 06:43 Dose: 100 mls/hr Documented by: Azithromycin 500 mg/ Sodium (Chloride) 250 mls @ 250 mls/hr IV Q24H [facility] Last Admin: 04/18/21 22:04 Dose: 250 mls/hr Documented by: Sodium Chloride (Normal Saline) 500 mls @ 500 mls/hr IV .BOLUS [facility] Last Admin: 04/16/21 00:37 Dose: 500 mls/hr Documented by: Pantoprazole Sodium 40 mg/ (Sodium Chloride) 10 mls @ 300 mls/hr IV Q12H [facility] Last Admin: 04/18/21 21:55 Dose: 300 mls/hr Documented by: Morphine Sulfate (Morphine 2 Mg/Ml Syringe) 2 mg IVPUSH Q2H PRN PRN Reason: Pain (severe 7-10) Last Admin: 04/18/21 06:42 Dose: 2 mg Documented by: Ondansetron HCl (Ondansetron 4 Mg/2 Ml Sdv) 4 mg IVPUSH Q4H PRN PRN Reason: nausea Sodium Chloride (Sodium Chloride 0.9% 10 Ml Syringe) 10 ml FLUSH ASDIRECTED PRN PRN Reason: Keep Vein Open Last Admin: 04/15/21 09:49 Dose: 10 ml Documented by: Sodium Chloride (Sodium Chloride 0.9% 2.5 Ml Syringe) 2.5 ml FLUSH ASDIRECTED PRN PRN Reason: Keep Vein Open Last Admin: 04/15/21 09:50 Dose: 2.5 ml Documented by: Discontinued Medications Azithromycin (Azithromycin 500 Mg Vial) 500 mg IV Q24H [facility] Last Admin: 04/15/21 23:53 Dose: Not Given Documented by: Pantoprazole Sodium 80 mg/ (Sodium Chloride) 10 mls @ 300 mls/hr IV NOW ONE Stop: 04/15/21 09:24 Last Admin: 04/15/21 09:49 Dose: 300 mls/hr Documented by: Piperacillin Sod/Tazobactam (Sod 3.375 gm/ Sodium Chloride) 50 mls @ 100 mls/hr IV ONETIME ONE Stop: 04/15/21 13:13 Last Admin: 04/15/21 13:25 Dose: 100 mls/hr Documented by: Lactated Ringer's (Ringers, Lactated) 1,000 mls @ 999 mls/hr IV .BOLUS ONE Stop: 04/15/21 13:45 Last Admin: 04/15/21 13:25 Dose: 999 mls/hr Documented by: Lactated Ringer's (Ringers, Lactated) 500 mls @ 1,000 mls/hr IV .BOLUS ONE Stop: 04/15/21 13:14 Last Admin: 04/15/21 13:25 Dose: 1,000 mls/hr Documented by: Lactated Ringer's (Ringers, Lactated) 1,000 mls @ 125 mls/hr IV ASDIRECTED [facility] Last Admin: 04/18/21 02:55 Dose: 125 mls/hr Documented by: Potassium Chloride/Sodium Chloride (Normal Saline With 40 Meq Kcl) 1,000 mls @ 150 mls/hr IV ASDIRECTED [facility] Stop: 04/18/21 18:24 Last Admin: 04/18/21 12:07 Dose: 150 mls/hr Documented by: Iopamidol (Iopamidol 755 Mg/Ml 500 Ml Multipack Bottle) 50 ml IVPUSH ONETIME STA Stop: 04/15/21 16:25 Last Admin: 04/15/21 16:25 Dose: 50 ml Documented by: Morphine Sulfate (Morphine 4 Mg/Ml Vial) 2 mg IVPUSH Q2H PRN PRN Reason: Pain (severe 7-10) Stop: 04/16/21 20:20 - Exam General: Alert, Oriented Lungs: Clear to Auscultation, Normal Respiratory Effort Cardiovascular: Regular Rate, Regular Rhythm GI/Abdominal Exam: Normal Bowel Sounds, Soft, Non-Tender Extremities: Non-Tender, No Pedal Edema Skin: Warm, Dry, Intact Neurological: No New Focal Deficit - Patient Data Lab Results Last 24 hrs: Laboratory Results - last 24 hr 04/18/21 04/18/21 04/19/21 Range/Units 05:40 05:40 06:29 WBC 8.77 6.44 (4.0-11.0) K/uL RBC 4.84 4.44 (4.30-5.90) M/uL Hgb 10.5 L 9.7 L (12.0-16.0) g/dL Hct 35.7 L 33.3 L (36.0-46.0) % MCV 73.8 L 75.0 L (80.0-98.0) fL MCH 21.7 L 21.8 L (27.0-32.0) pg MCHC 29.4 L 29.1 L (31.0-37.0) g/dL RDW Std Deviation 53.5 55.1 (28.0-62.0) fl RDW Coeff of Darling 20 H 21 H (11.0-15.0) % Plt Count 415 H 386 (150-400) K/uL MPV 10.50 10.50 (7.40-12.00) fL Neut % (Auto) 68.8 45.7 L (48.0-80.0) % Lymph % (Auto) 20.0 37.6 (16.0-40.0) % Smith % (Auto) 9.0 11.0 (0.0-15.0) % Eos % (Auto) 1.7 5.1 (0.0-7.0) % Baso % (Auto) 0.5 0.6 (0.0-1.5) % Neut # (Auto) 6.0 H 2.9 (1.4-5.7) K/uL Lymph # (Auto) 1.8 2.4 (0.6-2.4) K/uL Smith # (Auto) 0.8 0.7 (0.0-0.8) K/uL Eos # (Auto) 0.2 0.3 (0.0-0.7) K/uL Baso # (Auto) 0.0 0.0 (0.0-0.1) K/uL Nucleated RBC % 0.0 0.0 /100WBC Nucleated RBCs # 0 0 K/uL Sodium 138 (136-145) mmol/L Potassium 3.3 L (3.5-5.1) mmol/L Chloride 102 (98-107) mmol/L Carbon Dioxide 24.2 (21.0-32.0) mmol/L BUN 8 (7.0-18.0) mg/dL Creatinine 1.3 H (0.6-1.0) mg/dL Est Cr Clr Drug Dosing TNP Estimated GFR (MDRD) 39.8 ml/min Glucose 120 H (74-106) mg/dL Calcium 8.0 L (8.5-10.1) mg/dL Total Bilirubin 0.7 (0.2-1.0) mg/dL AST 14 L (15-37) IU/L ALT 13 L (14-63) IU/L Alkaline Phosphatase 91 (46-116) U/L Troponin I 0.241 H* (0.000-0.056) ng/mL Total Protein 7.7 (6.4-8.2) g/dL Albumin 2.8 L (3.4-5.0) g/dL Globulin 4.9 H (2.6-4.0) g/dL Albumin/Globulin Ratio 0.6 L (0.9-1.6) Result Diagrams: 04/19/21 06:29 04/18/21 05:40 Charli Results Last 24 hrs: Microbiology 04/16/21 21:00 Helicobacter pylori Antigen - Final Stool / Feces 04/15/21 09:40 Aerobic Blood Culture - Preliminary Blood - Venous - Lab Draw NO GROWTH AFTER 3 DAYS Anaerobic Blood Culture - Final 04/15/21 09:35 Aerobic Blood Culture - Preliminary Blood - Venous NO GROWTH AFTER 3 DAYS Anaerobic Blood Culture - Preliminary NO GROWTH AFTER 3 DAYS Sepsis Event Note - Evaluation Sepsis Screening Result: No Definite Risk - Focused Exam Vital Signs: Vital Signs Temp Pulse Resp BP Pulse Ox Pulse Ox 04/19/21 04:00 36.2 C 78 18 121/65 92 L 92 L 04/19/21 00:00 36.3 C 82 16 132/60 92 L 04/18/21 20:00 36.8 C 76 16 152/89 H 94 L - Problem List & Annotations (1) Sepsis SNOMED Code(s): 52024839 Code(s): A41.9 - SEPSIS, UNSPECIFIED ORGANISM Status: Acute Current Visit: Yes (2) Acute cholecystitis SNOMED Code(s): 10956512 Code(s): K81.0 - ACUTE CHOLECYSTITIS Status: Acute Current Visit: Yes (3) Anemia SNOMED Code(s): 551052969 Code(s): D64.9 - ANEMIA, UNSPECIFIED Status: Acute Current Visit: Yes (4) Elevated troponin SNOMED Code(s): 711686920, 538318735, 403639987 Code(s): R77.8 - OTHER SPECIFIED ABNORMALITIES OF PLASMA PROTEINS Status: Acute Current Visit: Yes - Problem List Review Problem List Initiated/Reviewed/Updated: Yes - My Orders Last 24 Hours: My Active Orders 04/18/21 Lunch Pureed Diet [DIET] 04/19/21 06:29 COMPREHENSIVE METABOLIC PN,CMP [CHEM] AM 04/20/21 05:11 CBC WITH AUTO DIFF [HEME] AM COMPREHENSIVE METABOLIC PN,CMP [CHEM] AM - Plan Plan:: 76 yo female admitted with sepsis from acute cholecystitis and possible pneumonia with acute kidney injury and troponin leak Possible pneumonia, sepsis: on Zosyn, azithromycin, lactic acid normalized, possible aspiration, speech consulted, will resume pureed diet, honey thick liquids Acute cholecystitis: Dr. Aguayo has been consulted, will continue medical management Microcytic anemia in setting of possible acute GI bleed: Hemmocult stool negative, Protonix, Troponin leak: likely not ACS, will continue to trend, Dr. Funez consulted likely discharge back to [facility] tomorrow
[2021-04-19 07:26] LABS: BLOOD UREA NITROGEN,BUN 6 mg/dL (7.0-18.0); CARBON DIOXIDE,CO2 24.5 mmol/L (21.0-32.0); CHLORIDE,CL 107 mmol/L (98-107); GLUCOSE RANDOM 98 mg/dL (74-106); POTASSIUM,K 3.4 mmol/L (3.5-5.1); SODIUM,NA 141 mmol/L (136-145)
[2021-04-19] MEDS: Pantoprazole 40 MG in Sodium Chloride 0.9% 10 ML IV SCH ×2 (09:43→22:26)
[2021-04-19] MEDS: Morphine 2 MG/ML SYRINGE IVPUSH PRN (15:56)
[2021-04-19] MEDS: Azithromycin 500 MG in Sodium Chloride 0.9% 250 ML IV SCH (22:34)
[2021-04-19] MEDS: Acetaminophen 325 MG Tab PO PRN (23:35)
[2021-04-20] MEDS: Piperacillin/Tazobactam 3.375 GM in Sodium Chloride 0.9% 50 ML IV SCH ×2 (00:30→07:26)
[2021-04-20] MEDS: Pantoprazole 40 MG in Sodium Chloride 0.9% 10 ML IV SCH (09:18)
--- NOTE | 2021-04-20 12:47 | PCM.DCSUM1 ---
Discharge Summary - Discharge Data Discharge Date: 04/20/21 Discharge Disposition: DC/Tfer to SNF 03 Condition: Stable - Referral to Home Health Primary Care Physician: Reji Contreras MD - Discharge Diagnosis/Problem(s) (1) Sepsis SNOMED Code(s): 37450060 ICD Code: A41.9 - SEPSIS, UNSPECIFIED ORGANISM Status: Acute Current Visit: Yes (2) Acute cholecystitis SNOMED Code(s): 13015103 ICD Code: K81.0 - ACUTE CHOLECYSTITIS Status: Acute Current Visit: Yes (3) Anemia SNOMED Code(s): 843956332 ICD Code: D64.9 - ANEMIA, UNSPECIFIED Status: Acute Current Visit: Yes (4) Elevated troponin SNOMED Code(s): 495630029, 348262169, 117038409 ICD Code: R77.8 - OTHER SPECIFIED ABNORMALITIES OF PLASMA PROTEINS Status: Acute Current Visit: Yes - Patient Summary/Data Consults: Consultations 04/16/21 12:56 Consult to Speech Language Pathology [COLORECTAL SURGEON Evaluation and Treatment] [CONS] Routine Hospital Course: 76 yo female with pmh of CVA, HTN, HLD who is a resident at [facility] who presents with one day of abdominal pain, nausea and coffee ground emesis. Patient was on Xarelto for PFO. In the ED she had brown guaiac negative stools. Patient had a WBC of 15,74, Hgb of 8.5. Lactic of 2.8, Troponin of 0.438. CT scan of the abdomen was concerning for possible acute cholecystitis. CT chest angio was negative for PE. Echocardiogram showed preserved EF and no valvular disease. ultrasound reported layered gallstones but no overt evidence of cholecystitis. MRCP reported cholelithiasis and edematous thickened gallbladder. Patient was treated with IV Zosyn for acute cholecystitis. CT of chest reported possible infiltrate so she was also given Azithromycin. Patient was placed on Protonix and Xarelto was held due to concerns of GI bleed. After fluid resuscitation and a unit of pRBC, Hgb dropped to 7.9 so she was transfused another unit of pRBC. Cardiology was consulted and did not think further evaluation was needed before urgent EGD or cholecystectomy. Dr. Aguayo did not think EGD or cholecystectomy was urgent and planned for continued medical management. Speech was consulted due to concerns of aspiration and recommended honey thick liquids and pureed diet. Leukocytosis, abdominal pain, resolved and patient is ready for discharge back to [place] for a total of 10 days of antibiotics for her cholecystitis. Her Xarelto was discontinued. - Patient Instructions Diet, Other: pureed diet, honey thick liquids Other/Special Instructions: PT consult. Speech consult - Discharge Plan Prescriptions/Med Rec: metroNIDAZOLE [Flagyl] 500 mg PO Q8H #18 tab levoFLOXacin [Levaquin] 750 mg PO DAILY #6 tab Pantoprazole Sodium [Protonix] 40 mg PO DAILY #20 tablet. Home Medications: Home Meds Aspirin [Aspirin EC] 81 mg PO DAILY 04/15/21 [History] Calcium Carbonate/Vitamin D3 [Calcium 500-Vit D3 200 Caplet] 1 tab PO DAILY 04/15/21 [History] Docusate Sodium [Colace] 200 mg PO DAILY 04/15/21 [History] Escitalopram [Lexapro] 10 mg PO DAILY 04/15/21 [History] Magnesium Hydroxide [Milk of Magnesia] 30 ml PO DAILY PRN 04/15/21 [History] Mirtazapine 30 mg PO BEDTIME 04/15/21 [History] bisacodyL [Dulcolax] 5 mg PO DAILY PRN 04/15/21 [History] bisacodyL [Dulcolax] 10 mg RC DAILY PRN 04/15/21 [History] polyethylene glycoL 3350 [MiraLAX] 17 gm PO DAILY 04/15/21 [History] Pantoprazole Sodium [Protonix] 40 mg PO DAILY #20 tablet. 04/19/21 [Rx] levoFLOXacin [Levaquin] 750 mg PO DAILY #6 tab 04/19/21 [Rx] metroNIDAZOLE [Flagyl] 500 mg PO Q8H #18 tab 04/19/21 [Rx] Patient Handouts: Anemia, Sepsis, Diagnosis, Adult, Cholecystitis, [id number], Sepsis, Self Care, Adult Referrals: Donna Aguayo MD [Physician] - (2 weeks) Reji Contreras MD [Primary Care Provider] - - Discharge Summary/Plan Comment DC Time >30 min.: No Total # of Minutes for Discharge Time: 10 - Patient Data Vitals - Most Recent: Last Vital Signs Temp 36.4 C 04/20/21 12:00 Pulse 75 04/20/21 12:00 Resp 18 04/20/21 12:00 BP 142/70 H 04/20/21 12:00 Pulse Ox 94 L 04/20/21 12:00 Weight - Most Recent: 60.963 kg I&O - Last 24 hours: Intake & Output 04/19/21 04/20/21 04/20/21 22:59 06:59 14:59 Intake Total 210 640 Output Total 291 Balance 210 349 NATALY Results - Last 24 hrs: Microbiology 04/15/21 09:40 Aerobic Blood Culture - Final Blood - Venous - Lab Draw NO GROWTH AFTER 5 DAYS Anaerobic Blood Culture - Final 04/15/21 09:35 Aerobic Blood Culture - Final Blood - Venous NO GROWTH AFTER 5 DAYS Anaerobic Blood Culture - Final NO GROWTH AFTER 5 DAYS 04/19/21 20:00 C. difficile Antigen & Toxins A,B - Final Stool / Feces Med Orders - Current: Current Medications Acetaminophen (Acetaminophen 325 Mg Tab) 650 mg PO Q6H PRN PRN Reason: Pain Last Admin: 04/19/21 23:35 Dose: 650 mg Documented by: Piperacillin Sod/Tazobactam (Sod 3.375 gm/ Sodium Chloride) 50 mls @ 100 mls/hr IV Q6H [facility] Last Admin: 04/20/21 07:26 Dose: 100 mls/hr Documented by: Azithromycin 500 mg/ Sodium (Chloride) 250 mls @ 250 mls/hr IV Q24H [facility] Last Admin: 04/19/21 22:34 Dose: 250 mls/hr Documented by: Sodium Chloride (Normal Saline) 500 mls @ 500 mls/hr IV .BOLUS [facility] Last Admin: 04/16/21 00:37 Dose: 500 mls/hr Documented by: Pantoprazole Sodium 40 mg/ (Sodium Chloride) 10 mls @ 300 mls/hr IV Q12H [facility] Last Admin: 04/20/21 09:18 Dose: 300 mls/hr Documented by: Morphine Sulfate (Morphine 2 Mg/Ml Syringe) 2 mg IVPUSH Q2H PRN PRN Reason: Pain (severe 7-10) Last Admin: 04/19/21 15:56 Dose: 2 mg Documented by: Ondansetron HCl (Ondansetron 4 Mg/2 Ml Sdv) 4 mg IVPUSH Q4H PRN PRN Reason: nausea Sodium Chloride (Sodium Chloride 0.9% 10 Ml Syringe) 10 ml FLUSH ASDIRECTED PRN PRN Reason: Keep Vein Open Last Admin: 04/15/21 09:49 Dose: 10 ml Documented by: Sodium Chloride (Sodium Chloride 0.9% 2.5 Ml Syringe) 2.5 ml FLUSH ASDIRECTED PRN PRN Reason: Keep Vein Open Last Admin: 04/15/21 09:50 Dose: 2.5 ml Documented by: Discontinued Medications Azithromycin (Azithromycin 500 Mg Vial) 500 mg IV Q24H [facility] Last Admin: 04/15/21 23:53 Dose: Not Given Documented by: Pantoprazole Sodium 80 mg/ (Sodium Chloride) 10 mls @ 300 mls/hr IV NOW ONE Stop: 04/15/21 09:24 Last Admin: 04/15/21 09:49 Dose: 300 mls/hr Documented by: Piperacillin Sod/Tazobactam (Sod 3.375 gm/ Sodium Chloride) 50 mls @ 100 mls/hr IV ONETIME ONE Stop: 04/15/21 13:13 Last Admin: 04/15/21 13:25 Dose: 100 mls/hr Documented by: Lactated Ringer's (Ringers, Lactated) 1,000 mls @ 999 mls/hr IV .BOLUS ONE Stop: 04/15/21 13:45 Last Admin: 04/15/21 13:25 Dose: 999 mls/hr Documented by: Lactated Ringer's (Ringers, Lactated) 500 mls @ 1,000 mls/hr IV .BOLUS ONE Stop: 04/15/21 13:14 Last Admin: 04/15/21 13:25 Dose: 1,000 mls/hr Documented by: Lactated Ringer's (Ringers, Lactated) 1,000 mls @ 125 mls/hr IV ASDIRECTED [facility] Last Admin: 04/18/21 02:55 Dose: 125 mls/hr Documented by: Potassium Chloride/Sodium Chloride (Normal Saline With 40 Meq Kcl) 1,000 mls @ 150 mls/hr IV ASDIRECTED [facility] Stop: 04/18/21 18:24 Last Admin: 04/18/21 12:07 Dose: 150 mls/hr Documented by: Iopamidol (Iopamidol 755 Mg/Ml 500 Ml Multipack Bottle) 50 ml IVPUSH ONETIME STA Stop: 04/15/21 16:25 Last Admin: 04/15/21 16:25 Dose: 50 ml Documented by: Morphine Sulfate (Morphine 4 Mg/Ml Vial) 2 mg IVPUSH Q2H PRN PRN Reason: Pain (severe 7-10) Stop: 04/16/21 20:20
== END 2021-04-20 12:15 | DRG 871 ==
LOC: MW.ED 08:45 → MW.MS 17:38
PROVIDERS: ADMIT Internal Medicine; ATTEND Internal Medicine
PROC: 30233N1 Transfusion of Nonautologous Red Blood Cells into Peripheral Vein, Percutaneous Approach (ICD-10-PCS; principal; 2021-04-16)
DX: K81.0 Acute cholecystitis (principal); D64.9 Anemia, unspecified; A41.9 Sepsis, unspecified organism; R47.01 Aphasia; J69.0 Pneumonitis due to inhalation of food and vomit; K80.00 Calculus of gallbladder with acute cholecystitis without obstruction; I13.0 Hypertensive heart and chronic kidney disease with heart failure and stage 1 through stage 4 chronic kidney disease, or unspecified chronic kidney disease; D72.829 Elevated white blood cell count, unspecified; I69.351 Hemiplegia and hemiparesis following cerebral infarction affecting right dominant side; N17.9 Acute kidney failure, unspecified; I50.30 Unspecified diastolic (congestive) heart failure; K92.2 Gastrointestinal hemorrhage, unspecified; Q21.1 Atrial septal defect; R77.8 Other specified abnormalities of plasma proteins; I25.10 Atherosclerotic heart disease of native coronary artery without angina pectoris; E78.5 Hyperlipidemia, unspecified; Z66 Do not resuscitate; Z20.822 Contact with and (suspected) exposure to COVID-19; F32.A Depression, unspecified; D63.1 Anemia in chronic kidney disease; N18.30 Chronic kidney disease, stage 3 unspecified; E78.00 Pure hypercholesterolemia, unspecified; Z79.82 Long term (current) use of aspirin; Z79.899 Other long term (current) drug therapy; Z79.01 Long term (current) use of anticoagulants; Z98.61 Coronary angioplasty status
CPT/HCPCS: 36415; 71275; 74177; 80053; 83605 ×2; 83690; 84484; 85025; 85610; 85730; 86850; 86900; 86901; 86920 ×2; 86921 ×2; 86922 ×2; 87040 ×2; 93005; 96365; 96375; 99285; C9113; J2543; J7120 ×2; Q9967; 36430; 74181; 74181-26; 76705; 76705-26; 81003; 82272; 82947; 83735; 84100; 87324; 87338; 92526-GN; 92610-GN; 93306; A9270-GY; J0456; J2270; J3480; J7040; J7050; P9016; U0002

== ENCOUNTER 2021-06-05 21:50 | Observation (INO) | payer MEDICARE, MEDICAID ==
[2021-06-05] MEDS ORDERED: Sodium Chloride 0.9% 2.5 ML Syringe FLUSH PRN (22:35)
[2021-06-05] MEDS ORDERED: Sodium Chloride 0.9% 10 ML Syringe FLUSH PRN (22:35)
[2021-06-05] MEDS ORDERED: Metoclopramide 10 MG/2 ML SDV IVPUSH ONE (22:53)
[2021-06-05] MEDS ORDERED: Morphine 2 MG/ML SYRINGE IVPUSH ONE (22:53)
[2021-06-05] MEDS ORDERED: Lactated Ringers 1,000 ML IV ONE (22:53)
--- NOTE | 2021-06-05 22:58 | EDM.PDOC ---
ED HPI GENERAL MEDICAL PROBLEM - General Chief Complaint: Gastrointestinal Problem Stated Complaint: JACOBY REFERRAL, ABDOMINAL PAIN Time Seen by Provider: 06/05/21 22:25 - History of Present Illness INITIAL COMMENTS - FREE TEXT/NARRATIVE: 76-year-old female history of multiple medical problems including hypertension CVA with a recent admission for sepsis related to cholecystitis as well as GI bleed on Xarelto in the past who is presenting with abdominal pain. Patient developed left upper quadrant abdominal pain associated with nausea and vomiting starting this morning. No cough no shortness of breath but pain in the abdomen worsens with deep breaths. No diarrhea. Pain currently moderate to severe worsens with attempted p.o. intake and is without alleviating factors. Denies focused in the left upper quadrant with some radiation to the right upper quadrant. Bilateral Upper Abdominal Pain Score (Numeric/FACES): 91 - Related Data Allergies Allergy/AdvReac Type Severity Reaction Status Date / Time No Known Allergies Allergy Verified 06/05/21 21:59 Home Meds: Home Meds Aspirin [Aspirin EC] 81 mg PO DAILY 04/15/21 [History] Calcium Carbonate/Vitamin D3 [Calcium 500-Vit D3 200 Caplet] 1 tab PO DAILY 04/15/21 [History] Docusate Sodium [Colace] 200 mg PO DAILY 04/15/21 [History] Escitalopram [Lexapro] 10 mg PO DAILY 04/15/21 [History] Magnesium Hydroxide [Milk of Magnesia] 30 ml PO DAILY PRN 04/15/21 [History] Mirtazapine 30 mg PO BEDTIME 04/15/21 [History] bisacodyL [Dulcolax] 5 mg PO DAILY PRN 04/15/21 [History] bisacodyL [Dulcolax] 10 mg RC DAILY PRN 04/15/21 [History] polyethylene glycoL 3350 [MiraLAX] 17 gm PO DAILY 04/15/21 [History] Pantoprazole Sodium [Protonix] 40 mg PO DAILY #20 tablet 04/19/21 [Rx] levoFLOXacin [Levaquin] 750 mg PO DAILY #6 tab 04/19/21 [Rx] metroNIDAZOLE [Flagyl] 500 mg PO Q8H #18 tab 04/19/21 [Rx] Past Medical History HEENT History: Reports: None Cardiovascular History: Reports: High Cholesterol, Hypertension, Other (See Below) Other Cardiovascular History: athersclerotic heart disease Respiratory History: Reports: SOB Gastrointestinal History: Reports: None Genitourinary History: Reports: Renal Disease, Other (See Below) Other Genitourinary History: hypertensive chronic kidney disease 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 Musculoskeletal History: Reports: Other (See Below) Other Musculoskeletal History: muscle weakness, facial weakness following cerebral infarction Neurological History: Reports: CVA Psychiatric History: Reports: Depression Endocrine/Metabolic History: Reports: None Hematologic History: Reports: Other (See Below) Other Hematologic History: hypocalcemia Immunologic History: Reports: None Oncologic (Cancer) History: Reports: None Dermatologic History: Reports: None - Infectious Disease History Infectious Disease History: Reports: None - Past Surgical History Head Surgeries/Procedures: Reports: None HEENT Surgical History: Reports: None Cardiovascular Surgical History: Reports: Other (See Below) Other Cardiovascular Surgeries/Procedures: Coronary angioplasty implant and graft Respiratory Surgical History: Reports: None GI Surgical History: Reports: Colonoscopy Female Surgical History: Reports: Hysterectomy Endocrine Surgical History: Reports: None Neurological Surgical History: Reports: None Musculoskeletal Surgical History: Reports: None Oncologic Surgical History: Reports: None Dermatological Surgical History: Reports: None Social & Family History - Family History Family Medical History: No Pertinent Family History - Tobacco Use Tobacco Use Status *Q: Never Tobacco User - Caffeine Use Caffeine Use: Reports: None - Recreational Drug Use Recreational Drug Use: No ED ROS GENERAL - Review of Systems Review Of Systems: See Below Free Text/Narrative/Comment: General: No fever. Skin: No rash. Eyes: No vision problems. ENT: No sore throat. Neck: No neck stiffness. Respiratory: No shortness of breath. Cardiac: No chest pain. Gastrointestinal: Per HPI Urinary: No dysuria. Musculoskeletal: No myalgias/arthralgias. Neurologic: No headache. ED EXAM, GENERAL - Physical Exam Exam: See Below Free Text/Narrative:: General Appearance: No acute distress, appears comfortable Skin: No rash HEENT: Normocephalic/atraumatic, sclera anicteric, mucous membranes dry Neck: Normal range of motion Chest and Lungs: Bilateral breath sounds, clear to auscultation Cardiovascular: Regular rate and rhythm Abdomen: Soft, right upper quadrant and left upper quadrant tenderness Musculoskeletal: No edema or tenderness Neurologic: Awake, alert, no obvious deficits, moving all extremities Psychiatric: Appropriate, cooperative #1 Interpretation EKG Date: 06/05/21 Time: 22:05 EKG Interpretation Comments: Sinus tachycardia rate of 106 QTC borderline at 505 no acute ischemia Course - Vital Signs Last Recorded V/S: Last Vital Signs Temp 98.3 F 06/05/21 22:00 Pulse 86 06/06/21 01:25 Resp 16 06/06/21 01:25 BP 104/45 L 06/06/21 01:25 Pulse Ox 94 L 06/06/21 01:25 - Orders/Labs/Meds Orders: Active Orders 24 hr Category Date Time Status CULTURE BLOOD [BC] Stat Lab 06/06/21 01:12 Received CULTURE BLOOD [BC] Stat Lab 06/06/21 01:22 Results Sodium Chloride 0.9% [Saline Flush] Med 06/05/21 22:35 Active 10 ml FLUSH ASDIRECTED PRN Sodium Chloride 0.9% [Saline Flush] Med 06/05/21 22:35 Active 2.5 ml FLUSH ASDIRECTED PRN Blood Culture x2 Reflex Set [OM.PC] Stat Oth 06/06/21 00:23 Ordered Saline Lock Insert [OM.PC] Stat Oth 06/05/21 22:35 Ordered Medication Orders Sodium Chloride (Sodium Chloride 0.9% 10 Ml Syringe) 10 ml FLUSH ASDIRECTED PRN PRN Reason: Keep Vein Open Last Admin: 06/06/21 01:18 Dose: 10 ml Documented by: TANYA Sodium Chloride (Sodium Chloride 0.9% 2.5 Ml Syringe) 2.5 ml FLUSH ASDIRECTED PRN PRN Reason: Keep Vein Open Last Admin: 06/06/21 01:18 Dose: 2.5 ml Documented by: TANYA Labs: Laboratory Tests 06/05/21 06/05/21 06/05/21 Range/Units 23:50 23:50 23:50 WBC 11.89 H (4.0-11.0) K/uL RBC 4.87 (4.30-5.90) M/uL Hgb 11.5 L (12.0-16.0) g/dL Hct 37.5 (36.0-46.0) % MCV 77.0 L (80.0-98.0) fL MCH 23.6 L (27.0-32.0) pg MCHC 30.7 L (31.0-37.0) g/dL RDW Std Deviation 61.9 (28.0-62.0) fl RDW Coeff of [place] 22 H (11.0-15.0) % Plt Count 389 (150-400) K/uL MPV 10.10 (7.40-12.00) fL Neut % (Auto) 84.8 H (48.0-80.0) % Lymph % (Auto) 8.3 L (16.0-40.0) % [place] % (Auto) 6.8 (0.0-15.0) % Eos % (Auto) 0.0 (0.0-7.0) % Baso % (Auto) 0.1 (0.0-1.5) % Neut # (Auto) 10.1 H (1.4-5.7) K/uL Lymph # (Auto) 1.0 (0.6-2.4) K/uL [place] # (Auto) 0.8 (0.0-0.8) K/uL Eos # (Auto) 0.0 (0.0-0.7) K/uL Baso # (Auto) 0.0 (0.0-0.1) K/uL Nucleated RBC % 0.0 /100WBC Nucleated RBCs # 0 K/uL Sodium 140 (136-145) mmol/L Potassium 4.5 (3.5-5.1) mmol/L Chloride 102 (98-107) mmol/L Carbon Dioxide 27.4 (21.0-32.0) mmol/L BUN 14 (7.0-18.0) mg/dL Creatinine 1.4 H (0.6-1.0) mg/dL Est Cr Clr Drug Dosing 25.80 mL/min Estimated GFR (MDRD) 36.6 ml/min Glucose 167 H (74-106) mg/dL Lactic Acid 2.3 H* (0.4-2.0) mmol/L Calcium 9.0 (8.5-10.1) mg/dL Total Bilirubin 1.4 H (0.2-1.0) mg/dL AST 212 H (15-37) IU/L ALT 148 H (14-63) IU/L Alkaline Phosphatase 226 H (46-116) U/L Total Protein 8.1 (6.4-8.2) g/dL Albumin 3.1 L (3.4-5.0) g/dL Globulin 5.0 H (2.6-4.0) g/dL Albumin/Globulin Ratio 0.6 L (0.9-1.6) Lipase 229 (73-393) U/L SARS-CoV-2 RNA (NISHA) (NEGATIVE) 06/06/21 Range/Units 01:50 WBC (4.0-11.0) K/uL RBC (4.30-5.90) M/uL Hgb (12.0-16.0) g/dL Hct (36.0-46.0) % MCV (80.0-98.0) fL MCH (27.0-32.0) pg MCHC (31.0-37.0) g/dL RDW Std Deviation (28.0-62.0) fl RDW Coeff of [place] (11.0-15.0) % Plt Count (150-400) K/uL MPV (7.40-12.00) fL Neut % (Auto) (48.0-80.0) % Lymph % (Auto) (16.0-40.0) % [place] % (Auto) (0.0-15.0) % Eos % (Auto) (0.0-7.0) % Baso % (Auto) (0.0-1.5) % Neut # (Auto) (1.4-5.7) K/uL Lymph # (Auto) (0.6-2.4) K/uL [place] # (Auto) (0.0-0.8) K/uL Eos # (Auto) (0.0-0.7) K/uL Baso # (Auto) (0.0-0.1) K/uL Nucleated RBC % /100WBC Nucleated RBCs # K/uL Sodium (136-145) mmol/L Potassium (3.5-5.1) mmol/L Chloride (98-107) mmol/L Carbon Dioxide (21.0-32.0) mmol/L BUN (7.0-18.0) mg/dL Creatinine (0.6-1.0) mg/dL Est Cr Clr Drug Dosing mL/min Estimated GFR (MDRD) ml/min Glucose (74-106) mg/dL Lactic Acid (0.4-2.0) mmol/L Calcium (8.5-10.1) mg/dL Total Bilirubin (0.2-1.0) mg/dL AST (15-37) IU/L ALT (14-63) IU/L Alkaline Phosphatase (46-116) U/L Total Protein (6.4-8.2) g/dL Albumin (3.4-5.0) g/dL Globulin (2.6-4.0) g/dL Albumin/Globulin Ratio (0.9-1.6) Lipase (73-393) U/L SARS-CoV-2 RNA (NISHA) NEGATIVE (NEGATIVE) Meds: Medications Generic Name Dose Route Start Last Admin Trade Name Freq PRN Reason Stop Dose Admin Sodium Chloride 10 ml 06/05/21 22:35 06/06/21 01:18 Sodium Chloride 0.9% 10 Ml Syringe FLUSH 10 ml ASDIRECTED PRN Administration Keep Vein Open Sodium Chloride 2.5 ml 06/05/21 22:35 06/06/21 01:18 Sodium Chloride 0.9% 2.5 Ml Syringe FLUSH 2.5 ml ASDIRECTED PRN Administration Keep Vein Open Discontinued Medications Generic Name Dose Route Start Last Admin Trade Name Freq PRN Reason Stop Dose Admin Lactated Ringer's 1,000 mls @ 999 mls/hr 06/05/21 22:53 06/05/21 23:59 Ringers, Lactated IV 06/05/21 23:53 999 mls/hr .BOLUS ONE Administration Piperacillin Sod/Tazobactam 100 mls @ 100 mls/hr 06/06/21 00:23 06/06/21 01:18 Sod 4.5 gm/ Sodium Chloride IV 06/06/21 01:22 100 mls/hr ONETIME ONE Administration Metoclopramide HCl 5 mg 06/05/21 22:53 06/06/21 00:01 Metoclopramide 10 Mg/2 Ml Sdv IVPUSH 06/05/21 22:54 5 mg ONETIME ONE Administration Morphine Sulfate 2 mg 06/05/21 22:53 06/06/21 00:02 Morphine 2 Mg/Ml Syringe IVPUSH 06/05/21 22:54 2 mg ONETIME ONE Administration Departure - Departure Time of Disposition: 04:04 Disposition: Refer to Observation Condition: Fair Clinical Impression: Biliary colic - Discharge Information *PRESCRIPTION DRUG MONITORING PROGRAM REVIEWED*: Not Applicable *COPY OF PRESCRIPTION DRUG MONITORING REPORT IN PATIENT PRICE: Not Applicable Referrals: Reji Contreras MD [Primary Care Provider] - Forms: ED Department Discharge Sepsis Event Note (ED) - Evaluation Sepsis Screening Result: No Definite Risk - Focused Exam Vital Signs: Vital Signs Temp Pulse Resp BP Pulse Ox 06/06/21 01:25 86 16 104/45 L 94 L 06/06/21 00:06 92 14 130/40 L 92 L 06/05/21 22:00 98.3 F 106 H 18 142/66 H 94 L - My Orders Last 24 Hours: My Active Orders 06/05/21 22:35 Sodium Chloride 0.9% [Saline Flush] 10 ml FLUSH ASDIRECTED PRN Sodium Chloride 0.9% [Saline Flush] 2.5 ml FLUSH ASDIRECTED PRN Saline Lock Insert [OM.PC] Stat 06/06/21 00:23 Blood Culture x2 Reflex Set [OM.PC] Stat 06/06/21 01:12 CULTURE BLOOD [BC] Stat 06/06/21 01:22 CULTURE BLOOD [BC] Stat - Assessment/Plan Last 24 Hours: My Active Orders 06/05/21 22:35 Sodium Chloride 0.9% [Saline Flush] 10 ml FLUSH ASDIRECTED PRN Sodium Chloride 0.9% [Saline Flush] 2.5 ml FLUSH ASDIRECTED PRN Saline Lock Insert [OM.PC] Stat 06/06/21 00:23 Blood Culture x2 Reflex Set [OM.PC] Stat 06/06/21 01:12 CULTURE BLOOD [BC] Stat 06/06/21 01:22 CULTURE BLOOD [BC] Stat Assessment:: 76-year-old female presented with signs and symptoms that are concerning for acute cholecystitis. Prior event was treated only with IV antibiotics. Peptic ulcer disease is a consideration as well that would be a diagnosis of exclusion. Patient does have bilateral upper quadrant tenderness on exam but is not peritoneal. CBC, CMP, lipase, CT abdomen pelvis have been ordered. IV fluid Reglan and morphine for symptoms. Will avoid Zofran given QT prolongation. 0030: Very minimal lactic acid elevation to 2.4. There is a significant transaminitis as well as a mild leukocytosis. Given her symptoms I do have concern for recurrent cholecystitis choledocholithiasis is a consideration as well. Cholangitis is a consideration. IV Zosyn has been ordered blood cultures will be obtained as well. Patient does have a mild renal insufficiency below the threshold for IV contrast and so noncontrast study will be performed. 0145: CT with some findings that suggest acute cholecystitis no sign of biliary duct obstruction. Quadrant ultrasound has been ordered. Patient is already been covered with antibiotics. Will discuss with general surgery when ultrasound results. 0355: US with cholelithiasis without evidence of acute cholecystitis. No signs of biliary obstruction either. Patient discussed in full with Dr. Aguayo of general surgery. Some degree of acute on chronic cholecystitis may be present. No indication for emergent operative intervention at this point. As Dr. Aguayo recalls family had a strong preference against surgery. Patient is having persistent symptoms and given the multiple lab abnormalities will plan for admission to medicine for reassessment in the morning and additional discussion of regarding potential options for more definitive treatment. 0405: Pt discussed with Dr. Servin. Will admit for observation, reassessment and further evaluation.
[2021-06-06 00:16] LABS: CARBON DIOXIDE,CO2 27.4 mmol/L (21.0-32.0); POTASSIUM,K 4.5 mmol/L (3.5-5.1)
[2021-06-06] MEDS ORDERED: Piperacillin/Tazobactam 4.5 GM in Sodium Chloride 0.9% 100 ML IV ONE (00:23)
--- NOTE | 2021-06-06 01:35 | CT ---
INDICATION: Upper abdominal pain. History cholecystitis. COMPARISON: None available slight 3 2.5 TECHNIQUE: CT examination of the abdomen and pelvis was performed without contrast enhancement using 3 mm thick axial sections from the lung bases through the pubic symphysis. Oral contrast was not administered. Please note that all CT scans at this facility use dose modulation, iterative reconstruction, and/or weight-based dosing when appropriate to reduce radiation dose to as low as reasonably achievable. FINDINGS: In the abdomen, the unenhanced liver has a 1.1 centimeter probable cyst in segment 8 of the dome of the right lobe of the liver. The rest of the liver is normal in appearance. The spleen and adrenals are normal in appearance. A few small coarse calcifications are seen in the pancreatic body at the junction with the pancreatic tail consistent with previous pancreatitis. The rest of the pancreas is normal in appearance. Several cysts are seen arising from both kidneys. The largest cyst is in the lateral interpolar left kidney measuring 2.2 x 1.4 centimeters. There is a nonobstructive 3 millimeter calculus in the posterior lower interpolar right kidney. A nonobstructive 4 millimeter calculus is seen in the lower pole of the left kidney. Several vascular calcifications are seen in both kidneys. There is moderate cortical scarring in the lateral interpolar right kidney. There is mild thickening of the wall of the gallbladder along with mild cholelithiasis. Several small dependent calculi are seen in the superior gallbladder fundus as well as the inferiorly towards the gallbladder neck. Suggest correlation with ultrasound of the right upper quadrant. There is no sign of biliary ductal dilatation. The abdominal aorta is normal in caliber with no sign of dilatation. There is no sign of retroperitoneal mass or adenopathy. The stomach, loops of small bowel, and colon in the abdomen are normal in appearance. In the pelvis, the appendix is nonvisualized, but there is no sign of an inflammatory process in the area of the appendix. There is severe sigmoid diverticulosis without evidence of diverticulitis. The loops of small bowel and colon in the pelvis are otherwise normal in appearance. The uterus is absent and the adnexal regions are normal in appearance. The urinary bladder is normal in appearance. There is no sign of pelvic or inguinal mass or adenopathy. There is no sign of free air or free fluid in the abdomen or pelvis. Mild peripheral interstitial density. There is a noncalcified rounded subpleural mass in the posterior medial right lower lobe measuring 1.0 centimeters in diameter on axial image 21 series 201. Recommend correlation with any previous cross-sectional imaging. If none is available, consider PET/CT scanning versus six-month follow-up. The lung bases are otherwise clear. The heart is normal in size. There is heavy RCA coronary calcification. There is mild scoliosis of the lumbar spine convex towards the left. IMPRESSION: CT of the abdomen shows findings suggesting acute cholecystitis with mild cholelithiasis. Suggest correlation with ultrasound of the right upper quadrant. Small, nonobstructive calculi seen in both kidneys, 1 calculus on each side. Several renal cysts are present bilaterally. Moderate cortical atrophy in the interpolar right kidney. CT of the pelvis show severe sigmoid diverticulosis with no sign of diverticulitis. Status post hysterectomy. Please note that all CT scans at this facility use dose modulation, iterative reconstruction, and/or weight-based dosing when appropriate to reduce radiation dose to as low as reasonably achievable. Dictated by Basil Kwon MD @ 06/06/2021 1:34:10 AM (Electronically Signed)
--- NOTE | 2021-06-06 03:50 | US ---
INDICATION: Right upper quadrant abdomen pain and cholelithiasis TECHNIQUE: Ultrasound abdomen limited. Sonographic images of the right upper quadrant were obtained using hill-scale and color Doppler images. COMPARISON: Abdomen and pelvis CT 06/06/2021 FINDINGS: Liver: Mildly increased echogenicity without focal lesion. Gallbladder: Contracted gallbladder with gallbladder sludge with some shadowing, likely intermixed stones. No gallbladder wall thickening. Negative sonographic Hubbard`s sign. Common bile duct: 5 mm. Pancreas: Normal. Right kidney: Normal in size. Normal echotexture and cortex. No masses, stones, or hydronephrosis. Simple 13 millimeter cyst. IMPRESSION: 1. Cholelithiasis without sonographic evidence of cholecystitis. 2. Mild hepatic steatosis. Dictated by Rian Chatterjee MD @ 06/06/2021 3:49:21 AM (Electronically Signed)
[2021-06-06] MEDS ORDERED: Piperacillin/Tazobactam 2.25 GM in Sodium Chloride 0.9% 100 ML IV SCH (08:30)
[2021-06-06] MEDS ORDERED: Morphine 2 MG/ML SYRINGE IVPUSH PRN (08:30)
[2021-06-06] MEDS ORDERED: Sodium Chloride 0.9% 2.5 ML Syringe FLUSH PRN (08:31)
--- NOTE | 2021-06-06 08:33 | PCM.HP.2 ---
H&P History of Present Illness - General Date of Service: 06/06/21 Admit Problem/Dx: Admission Diagnosis/Problem Admission Diagnosis/Problem Biliary colic Source of Information: Patient, Old Records History Limitations: Reports: Physical Impairment - History of Present Illness Initial Comments - Free Text/Narative: This 76-year-old female with past medical history of CVA with right hemiparesis, CKD, HLD, HTN CAD with PCI and recent acute cholecystitis presented to the ER with concerns of nausea vomiting and abdominal pain. Patient poor historian. Patient reports she is having abdominal pain with some mild nausea this morning. Otherwise unable to give accurate review of systems and/or medical history. Abdominal CT in the ER reveals acute cholecystitis with mild cholelithiasis. Right upper quadrant ultrasound also obtained which reveals cholelithiasis without sonographic evidence of cholecystitis mild hepatic steatosis. Patient was found to have leukocytosis at 11,000 890, hemoglobin 11.5. Chemistry reveals sodium 140 potassium 4.5 BUN 14 creatinine 1.4 lactic acid elevated at 2.3. Bilirubin elevated at 1.4 AST 212 ALT 148 alk phos 226. Lipase 229. She was tr eated with 1 L IV fluids in the ER along with Zosyn. Dr. Aguayo was consulted and discussed with the ER that from previous admission patient's POA had wanted surgical intervention to be last option due to her comorbidities and surgical risks. Patient will be admitted observation at this time for biliary colic possible acute cholecystitis. Bilateral Upper Abdominal Pain Score (Numeric/FACES): 91 - Related Data Allergies/Adverse Reactions: Allergies Allergy/AdvReac Type Severity Reaction Status Date / Time No Known Allergies Allergy Verified 06/05/21 21:59 Home Medications: Home Meds Aspirin [Aspirin EC] 81 mg PO DAILY 04/15/21 [History] Calcium Carbonate/Vitamin D3 [Calcium 500-Vit D3 200 Caplet] 1 tab PO DAILY 04/15/21 [History] Docusate Sodium [Colace] 200 mg PO DAILY 04/15/21 [History] Escitalopram [Lexapro] 10 mg PO DAILY 04/15/21 [History] Magnesium Hydroxide [Milk of Magnesia] 30 ml PO DAILY PRN 04/15/21 [History] Mirtazapine 30 mg PO BEDTIME 04/15/21 [History] bisacodyL [Dulcolax] 5 mg PO DAILY PRN 04/15/21 [History] bisacodyL [Dulcolax] 10 mg RC DAILY PRN 04/15/21 [History] polyethylene glycoL 3350 [MiraLAX] 17 gm PO DAILY 04/15/21 [History] Pantoprazole Sodium [Protonix] 40 mg PO DAILY #20 tablet. 04/19/21 [Rx] levoFLOXacin [Levaquin] 750 mg PO DAILY #6 tab 04/19/21 [Rx] metroNIDAZOLE [Flagyl] 500 mg PO Q8H #18 tab 04/19/21 [Rx] Past Medical History HEENT History: Reports: None Cardiovascular History: Reports: High Cholesterol, Hypertension, Other (See Below) Other Cardiovascular History: athersclerotic heart disease Respiratory History: Reports: SOB Gastrointestinal History: Reports: None Genitourinary History: Reports: Renal Disease, Other (See Below) Other Genitourinary History: hypertensive chronic kidney disease [employer] History: Reports: None Musculoskeletal History: Reports: Other (See Below) Other Musculoskeletal History: muscle weakness, facial weakness following cerebral infarction Neurological History: Reports: CVA Psychiatric History: Reports: Depression Endocrine/Metabolic History: Reports: None Hematologic History: Reports: Other (See Below) Other Hematologic History: hypocalcemia Immunologic History: Reports: None Oncologic (Cancer) History: Reports: None Dermatologic History: Reports: None - Infectious Disease History Infectious Disease History: Reports: None - Past Surgical History Head Surgeries/Procedures: Reports: None HEENT Surgical History: Reports: None Cardiovascular Surgical History: Reports: Other (See Below) Other Cardiovascular Surgeries/Procedures: Coronary angioplasty implant and graft Respiratory Surgical History: Reports: None GI Surgical History: Reports: Colonoscopy Female Surgical History: Reports: Hysterectomy Endocrine Surgical History: Reports: None Neurological Surgical History: Reports: None Musculoskeletal Surgical History: Reports: None Oncologic Surgical History: Reports: None Dermatological Surgical History: Reports: None Social & Family History - Family History Family Medical History: No Pertinent Family History - Tobacco Use Tobacco Use Status *Q: Unknown Ever Used Tobacco Second Hand Smoke Exposure: No - Caffeine Use Caffeine Use: Reports: None - Recreational Drug Use Recreational Drug Use: No H&P Review of Systems - Review of Systems: Review Of Systems: See Below Free Text/Narrative: Review of systems hard to obtain due to patient's comorbidities and aphasia. General: Reports: Malaise Pulmonary: Denies: Shortness of Breath Cardiovascular: Denies: Chest Pain Gastrointestinal: Reports: Abdominal Pain, Decreased Appetite, Nausea Exam - Exam Exam: See Below - Vital Signs Vital Signs: Last Vital Signs Temp 99.7 F 06/06/21 06:11 Pulse 85 06/06/21 06:11 Resp 20 06/06/21 06:11 BP 110/41 L 06/06/21 06:11 Pulse Ox 95 06/06/21 06:11 Weight: 59.874 kg - Exam General: Alert, Oriented, Cooperative Lungs: Clear to Auscultation, Normal Respiratory Effort Cardiovascular: Regular Rate, Regular Rhythm. No: Systolic Murmur GI/Abdominal Exam: Normal Bowel Sounds, Soft, Tender (Diffuse abdominal tenderness but worse in right upper quadrant) Extremities: Normal Inspection, Normal Range of Motion, Non-Tender, No Pedal Edema Neurological: No: Strength Equal Bilateral (per baseline and residual effects from CVA on R) Neuro Extensive - Mental Status: Alert, Oriented x3, Normal Mood/Affect Psychiatric: Alert, Normal Affect, Normal Mood - Patient Data Lab Results Last 24 hrs: Laboratory Results - last 24 hr 06/05/21 06/05/21 06/05/21 Range/Units 23:50 23:50 23:50 WBC 11.89 H (4.0-11.0) K/uL RBC 4.87 (4.30-5.90) M/uL Hgb 11.5 L (12.0-16.0) g/dL Hct 37.5 (36.0-46.0) % MCV 77.0 L (80.0-98.0) fL MCH 23.6 L (27.0-32.0) pg MCHC 30.7 L (31.0-37.0) g/dL RDW Std Deviation 61.9 (28.0-62.0) fl RDW Coeff of Darling 22 H (11.0-15.0) % Plt Count 389 (150-400) K/uL MPV 10.10 (7.40-12.00) fL Neut % (Auto) 84.8 H (48.0-80.0) % Lymph % (Auto) 8.3 L (16.0-40.0) % Wood % (Auto) 6.8 (0.0-15.0) % Eos % (Auto) 0.0 (0.0-7.0) % Baso % (Auto) 0.1 (0.0-1.5) % Neut # (Auto) 10.1 H (1.4-5.7) K/uL Lymph # (Auto) 1.0 (0.6-2.4) K/uL Wood # (Auto) 0.8 (0.0-0.8) K/uL Eos # (Auto) 0.0 (0.0-0.7) K/uL Baso # (Auto) 0.0 (0.0-0.1) K/uL Nucleated RBC % 0.0 /100WBC Nucleated RBCs # 0 K/uL Sodium 140 (136-145) mmol/L Potassium 4.5 (3.5-5.1) mmol/L Chloride 102 (98-107) mmol/L Carbon Dioxide 27.4 (21.0-32.0) mmol/L BUN 14 (7.0-18.0) mg/dL Creatinine 1.4 H (0.6-1.0) mg/dL Est Cr Clr Drug Dosing 25.80 mL/min Estimated GFR (MDRD) 36.6 ml/min Glucose 167 H (74-106) mg/dL Lactic Acid 2.3 H* (0.4-2.0) mmol/L Calcium 9.0 (8.5-10.1) mg/dL Total Bilirubin 1.4 H (0.2-1.0) mg/dL AST 212 H (15-37) IU/L ALT 148 H (14-63) IU/L Alkaline Phosphatase 226 H (46-116) U/L Total Protein 8.1 (6.4-8.2) g/dL Albumin 3.1 L (3.4-5.0) g/dL Globulin 5.0 H (2.6-4.0) g/dL Albumin/Globulin Ratio 0.6 L (0.9-1.6) Lipase 229 (73-393) U/L SARS-CoV-2 RNA (NISHA) (NEGATIVE) 06/06/21 Range/Units 01:50 WBC (4.0-11.0) K/uL RBC (4.30-5.90) M/uL Hgb (12.0-16.0) g/dL Hct (36.0-46.0) % MCV (80.0-98.0) fL MCH (27.0-32.0) pg MCHC (31.0-37.0) g/dL RDW Std Deviation (28.0-62.0) fl RDW Coeff of Darling (11.0-15.0) % Plt Count (150-400) K/uL MPV (7.40-12.00) fL Neut % (Auto) (48.0-80.0) % Lymph % (Auto) (16.0-40.0) % Wood % (Auto) (0.0-15.0) % Eos % (Auto) (0.0-7.0) % Baso % (Auto) (0.0-1.5) % Neut # (Auto) (1.4-5.7) K/uL Lymph # (Auto) (0.6-2.4) K/uL Wood # (Auto) (0.0-0.8) K/uL Eos # (Auto) (0.0-0.7) K/uL Baso # (Auto) (0.0-0.1) K/uL Nucleated RBC % /100WBC Nucleated RBCs # K/uL Sodium (136-145) mmol/L Potassium (3.5-5.1) mmol/L Chloride (98-107) mmol/L Carbon Dioxide (21.0-32.0) mmol/L BUN (7.0-18.0) mg/dL Creatinine (0.6-1.0) mg/dL Est Cr Clr Drug Dosing mL/min Estimated GFR (MDRD) ml/min Glucose (74-106) mg/dL Lactic Acid (0.4-2.0) mmol/L Calcium (8.5-10.1) mg/dL Total Bilirubin (0.2-1.0) mg/dL AST (15-37) IU/L ALT (14-63) IU/L Alkaline Phosphatase (46-116) U/L Total Protein (6.4-8.2) g/dL Albumin (3.4-5.0) g/dL Globulin (2.6-4.0) g/dL Albumin/Globulin Ratio (0.9-1.6) Lipase (73-393) U/L SARS-CoV-2 RNA (NISHA) NEGATIVE (NEGATIVE) Result Diagrams: 06/06/21 09:00 06/06/21 09:00 Charli Results Last 24 hrs: Microbiology 06/06/21 01:22 Anaerobic Blood Culture - Final Blood - Venous - Lab Draw Sepsis Event Note - Evaluation Sepsis Screening Result: No Definite Risk - Focused Exam Vital Signs: Vital Signs Temp Pulse Resp BP Pulse Ox 06/06/21 06:11 99.7 F 85 20 110/41 L 95 06/06/21 04:07 74 16 128/58 L 93 L 06/06/21 01:25 86 16 104/45 L 94 L 06/06/21 00:06 92 14 130/40 L 92 L 06/05/21 22:00 98.3 F 106 H 18 142/66 H 94 L - Problem List (1) Acute cholecystitis SNOMED Code(s): 07775610 ICD Code: K81.0 - ACUTE CHOLECYSTITIS Status: Acute Current Visit: No (2) Biliary colic SNOMED Code(s): 15039638 ICD Code: K80.50 - CALCULUS OF BILE DUCT W/O CHOLANGITIS OR CHOLECYST W/O OBST Status: Acute Current Visit: Yes (3) Elevated lactic acid level SNOMED Code(s): 9644431 ICD Code: R79.89 - OTHER SPECIFIED ABNORMAL FINDINGS OF BLOOD CHEMISTRY Status: Acute Current Visit: Yes (4) CAD (coronary artery disease) SNOMED Code(s): 04061611 ICD Code: I25.10 - ATHSCL HEART DISEASE OF [place] CORONARY ARTERY W/O ANG PCTRS Status: Chronic Current Visit: Yes (5) History of cerebrovascular accident with residual effects SNOMED Code(s): 660601250 ICD Code: I69.90 - UNSPECIFIED SEQUELAE OF UNSPECIFIED CEREBROVASCULAR DISEASE Status: Chronic Current Visit: Yes (6) HTN (hypertension) SNOMED Code(s): 30142399 ICD Code: I10 - ESSENTIAL (PRIMARY) HYPERTENSION Status: Chronic Current Visit: Yes (7) HLD (hyperlipidemia) SNOMED Code(s): 43509390 ICD Code: E78.5 - HYPERLIPIDEMIA, UNSPECIFIED Status: Chronic Current Visit: Yes (8) Right hemiparesis SNOMED Code(s): 912763607 ICD Code: G81.91 - HEMIPLEGIA, UNSPECIFIED AFFECTING RIGHT DOMINANT SIDE Status: Chronic Current Visit: Yes Problem List Initiated/Reviewed/Updated: Yes Orders Last 24hrs: Active Orders 24 hr Category Date Time Status Patient Status [ADT] Routine ADT 06/06/21 04:07 Active Intake and Output [RC] QSHIFT Care 06/06/21 08:31 Ordered Oxygen Therapy [RC] PRN Care 06/06/21 08:31 Ordered Up With Assistance [RC] ASDIRECTED Care 06/06/21 08:30 Ordered VTE/DVT Education [RC] PER UNIT ROUTINE Care 06/06/21 08:31 Ordered Vital Signs [RC] Q4H Care 06/06/21 08:31 Ordered Nothing Per Oral Diet [DIET] Diet 06/06/21 Lunch Ordered CBC WITH AUTO DIFF [HEME] AM Lab 06/07/21 05:11 Ordered CBC WITH AUTO DIFF [HEME] Routine Lab 06/06/21 08:28 Ordered COMPREHENSIVE METABOLIC PN,CMP [CHEM] AM Lab 06/07/21 05:11 Ordered COMPREHENSIVE METABOLIC PN,CMP [CHEM] Routine Lab 06/06/21 08:28 Ordered CULTURE BLOOD [BC] Stat Lab 06/06/21 01:12 Received CULTURE BLOOD [BC] Stat Lab 06/06/21 01:22 Results LACTIC ACID [CHEM] Routine Lab 06/06/21 08:28 Ordered MAGNESIUM [CHEM] AM Lab 06/07/21 05:11 Ordered MAGNESIUM [CHEM] Routine Lab 06/06/21 08:28 Ordered Lactated Ringers [Ringers, Lactated] 1,000 ml Med 06/06/21 08:30 Ordered IV Q10H Morphine Med 06/06/21 08:30 Ordered 2 mg IVPUSH Q4H PRN Pantoprazole [ProTONIX] Med 06/06/21 08:45 Ordered 40 mg IVPUSH Q24H Piperacillin/Tazobactam [Piperacil-Tazobact] 4.5 gm Med 06/06/21 08:30 Ordered Sodium Chloride 0.9% [Normal Saline AdvBag] 100 ml IV Q6H Sodium Chloride 0.9% [Saline Flush] Med 06/06/21 08:31 Ordered 2.5 ml FLUSH ASDIRECTED PRN Blood Culture x2 Reflex Set [OM.PC] Stat Oth 06/06/21 00:23 Ordered Saline Lock Insert [OM.PC] Routine Oth 06/06/21 08:30 Ordered Medication Orders Piperacillin Sod/Tazobactam (Sod 4.5 gm/ Sodium Chloride) 100 mls @ 100 mls/hr IV Q6H ELIANA Lactated Ringer's (Ringers, Lactated) 1,000 mls @ 100 mls/hr IV Q10H ELIANA Morphine Sulfate (Morphine 2 Mg/Ml Syringe) 2 mg IVPUSH Q4H PRN PRN Reason: Pain (severe 7-10) Pantoprazole Sodium (Pantoprazole 40 Mg/10 Ml Syringe) 40 mg IVPUSH Q24H ELIANA Sodium Chloride (Sodium Chloride 0.9% 2.5 Ml Syringe) 2.5 ml FLUSH ASDIRECTED PRN PRN Reason: Keep Vein Open Assessment/Plan Comment:: This 76-year-old female admitted with biliary colic and acute cholecystitis 1. Biliary colic/acute cholecystitis -Dr. Aguayo consulted appreciate her assistance -continue Zosyn -continue LR 100 mL/h -morphine 2 mg as needed pain -n.p.o. -we will discuss with family goals of care -monitor LFTs -Spoke with sister, JG Velez updated on status. Discussed status currently. Discussed that this would continue to happen and she would like to speak with Dr. Aguayo regarding surgical options and potential transfer. 2. CAD/HTN/HLD/history of CVA -since discharge it appears Xarelto has been held, hemoglobin 11.5 -continue to monitor blood pressure hold blood pressure medications at this time VTE prophylaxis: SCDs at this time GI prophylaxis: Protonix CODE STATUS: DNR/DNI Dispo: 2 days pending improvement. - Mortality Measure Prognosis:: Good
[2021-06-06] MEDS ORDERED: Pantoprazole 40 MG/10 ML Syringe IVPUSH SCH (08:45)
[2021-06-06] MEDS: Piperacillin/Tazobactam 2.25 GM in Sodium Chloride 0.9% 50 ML IV SCH ×3 (09:31→22:23)
[2021-06-06] MEDS: Lactated Ringers 1,000 ML IV SCH ×2 (09:34→21:25)
[2021-06-06 09:41] LABS: CARBON DIOXIDE,CO2 24.5 mmol/L (21.0-32.0); POTASSIUM,K 3.9 mmol/L (3.5-5.1)
[2021-06-06] MEDS ORDERED: Sodium Chloride 0.9% 50 ML ONE (15:07)
[2021-06-06 15:55] LABS: CARBON DIOXIDE,CO2 24.8 mmol/L (21.0-32.0); POTASSIUM,K 3.8 mmol/L (3.5-5.1)
--- NOTE | 2021-06-06 16:23 | PCM.CONS ---
H&P History of Present Illness - General Date of Service: 06/06/21 Admit Problem/Dx: Admission Diagnosis/Problem Admission Diagnosis/Problem Biliary colic Source of Information: Patient History Limitations: Reports: No Limitations - History of Present Illness Initial Comments - Free Text/Narative: Patient is a 76 year old female with a history of CVA with right hemiparesis, CKD, HLD, HTN CAD with PCI and recent acute cholecystitis who was brought from her skilled nursing to the ER with concerns of nausea vomiting and abdominal pain. Patient poor historian. Patient reports she is having abdominal pain with some mild nausea this morning. Otherwise unable to give accurate review of systems and/or medical history. On admission her vitals were stable. WBC was elevated at 11K. Her LFTs and bilirubin were mildly elevated. She was made NPO, given IVF, IV antibiotics and admitted to the medicine team. Her bilirubin increased to 2.3 this morning and her LFTs were relatively the same. She complained that she was hungry and that her upper stomach hurt especially when palpated. Bilateral Upper Abdominal Pain Score (Numeric/FACES): 91 - Related Data Allergies/Adverse Reactions: Allergies Allergy/AdvReac Type Severity Reaction Status Date / Time No Known Allergies Allergy Verified 06/05/21 21:59 Home Medications: Home Meds Aspirin [Aspirin EC] 81 mg PO DAILY 04/15/21 [History] Calcium Carbonate/Vitamin D3 [Calcium 500-Vit D3 200 Caplet] 1 tab PO DAILY 04/15/21 [History] Docusate Sodium [Colace] 200 mg PO DAILY 04/15/21 [History] Escitalopram [Lexapro] 10 mg PO DAILY 04/15/21 [History] Magnesium Hydroxide [Milk of Magnesia] 30 ml PO DAILY PRN 04/15/21 [History] Mirtazapine 30 mg PO BEDTIME 04/15/21 [History] bisacodyL [Dulcolax] 5 mg PO DAILY PRN 04/15/21 [History] bisacodyL [Dulcolax] 10 mg RC DAILY PRN 04/15/21 [History] polyethylene glycoL 3350 [MiraLAX] 17 gm PO DAILY 04/15/21 [History] Pantoprazole Sodium [Protonix] 40 mg PO DAILY #20 tablet. 04/19/21 [Rx] levoFLOXacin [Levaquin] 750 mg PO DAILY #6 tab 04/19/21 [Rx] metroNIDAZOLE [Flagyl] 500 mg PO Q8H #18 tab 04/19/21 [Rx] Past Medical History HEENT History: Reports: None Cardiovascular History: Reports: High Cholesterol, Hypertension, Other (See Below) Other Cardiovascular History: athersclerotic heart disease Respiratory History: Reports: SOB Gastrointestinal History: Reports: None Genitourinary History: Reports: Renal Disease, Other (See Below) Other Genitourinary History: hypertensive chronic kidney disease [employer] History: Reports: None Musculoskeletal History: Reports: Other (See Below) Other Musculoskeletal History: muscle weakness, facial weakness following cerebral infarction Neurological History: Reports: CVA Psychiatric History: Reports: Depression Endocrine/Metabolic History: Reports: None Hematologic History: Reports: Other (See Below) Other Hematologic History: hypocalcemia Immunologic History: Reports: None Oncologic (Cancer) History: Reports: None Dermatologic History: Reports: None - Infectious Disease History Infectious Disease History: Reports: None - Past Surgical History Head Surgeries/Procedures: Reports: None HEENT Surgical History: Reports: None Cardiovascular Surgical History: Reports: Other (See Below) Other Cardiovascular Surgeries/Procedures: Coronary angioplasty implant and graft Respiratory Surgical History: Reports: None GI Surgical History: Reports: Colonoscopy Female Surgical History: Reports: Hysterectomy Endocrine Surgical History: Reports: None Neurological Surgical History: Reports: None Musculoskeletal Surgical History: Reports: None Oncologic Surgical History: Reports: None Dermatological Surgical History: Reports: None Social & Family History - Family History Family Medical History: No Pertinent Family History - Tobacco Use Tobacco Use Status *Q: Unknown Ever Used Tobacco Second Hand Smoke Exposure: No - Caffeine Use Caffeine Use: Reports: None - Recreational Drug Use Recreational Drug Use: No H&P Review of Systems - Review of Systems: Review Of Systems: See Below General: Reports: No Symptoms HEENT: Reports: No Symptoms Pulmonary: Reports: No Symptoms Cardiovascular: Reports: No Symptoms Gastrointestinal: Reports: Abdominal Pain Exam - Exam Exam: See Below - Vital Signs Vital Signs: Last Vital Signs Temp 36.4 C 06/06/21 12:31 Pulse 91 06/06/21 12:31 Resp 16 06/06/21 12:31 BP 128/77 06/06/21 12:31 Pulse Ox 92 L 06/06/21 12:31 Weight: 59.874 kg - Exam Quality Assessment: Supplemental Oxygen General: Alert, Oriented HEENT: Conjunctiva Clear, Mucosa Moist & [place], Posterior Pharynx Clear Lungs: Normal Respiratory Effort Cardiovascular: Regular Rate GI/Abdominal Exam: Soft, Non-Tender, Tender (RUQ with deep breathing and deep palpation ) Back Exam: Normal Inspection - Patient Data Lab Results Last 24 hrs: Laboratory Results - last 24 hr 06/05/21 06/05/21 06/05/21 Range/Units 23:50 23:50 23:50 WBC 11.89 H (4.0-11.0) K/uL RBC 4.87 (4.30-5.90) M/uL Hgb 11.5 L (12.0-16.0) g/dL Hct 37.5 (36.0-46.0) % MCV 77.0 L (80.0-98.0) fL MCH 23.6 L (27.0-32.0) pg MCHC 30.7 L (31.0-37.0) g/dL RDW Std Deviation 61.9 (28.0-62.0) fl RDW Coeff of Darling 22 H (11.0-15.0) % Plt Count 389 (150-400) K/uL MPV 10.10 (7.40-12.00) fL Neut % (Auto) 84.8 H (48.0-80.0) % Lymph % (Auto) 8.3 L (16.0-40.0) % [place] % (Auto) 6.8 (0.0-15.0) % Eos % (Auto) 0.0 (0.0-7.0) % Baso % (Auto) 0.1 (0.0-1.5) % Neut # (Auto) 10.1 H (1.4-5.7) K/uL Lymph # (Auto) 1.0 (0.6-2.4) K/uL [place] # (Auto) 0.8 (0.0-0.8) K/uL Eos # (Auto) 0.0 (0.0-0.7) K/uL Baso # (Auto) 0.0 (0.0-0.1) K/uL Nucleated RBC % 0.0 /100WBC Nucleated RBCs # 0 K/uL Sodium 140 (136-145) mmol/L Potassium 4.5 (3.5-5.1) mmol/L Chloride 102 (98-107) mmol/L Carbon Dioxide 27.4 (21.0-32.0) mmol/L BUN 14 (7.0-18.0) mg/dL Creatinine 1.4 H (0.6-1.0) mg/dL Est Cr Clr Drug Dosing 25.80 mL/min Estimated GFR (MDRD) 36.6 ml/min Glucose 167 H (74-106) mg/dL Lactic Acid 2.3 H* (0.4-2.0) mmol/L Calcium 9.0 (8.5-10.1) mg/dL Magnesium (1.8-2.4) mg/dL Total Bilirubin 1.4 H (0.2-1.0) mg/dL AST 212 H (15-37) IU/L ALT 148 H (14-63) IU/L Alkaline Phosphatase 226 H (46-116) U/L Total Protein 8.1 (6.4-8.2) g/dL Albumin 3.1 L (3.4-5.0) g/dL Globulin 5.0 H (2.6-4.0) g/dL Albumin/Globulin Ratio 0.6 L (0.9-1.6) Lipase 229 (73-393) U/L SARS-CoV-2 RNA (NISHA) (NEGATIVE) 06/06/21 06/06/21 06/06/21 Range/Units 01:50 09:00 09:00 WBC 6.32 (4.0-11.0) K/uL RBC 4.34 (4.30-5.90) M/uL Hgb 10.2 L (12.0-16.0) g/dL Hct 33.6 L (36.0-46.0) % MCV 77.4 L (80.0-98.0) fL MCH 23.5 L (27.0-32.0) pg MCHC 30.4 L (31.0-37.0) g/dL RDW Std Deviation 62.3 H (28.0-62.0) fl RDW Coeff of Darling 22 H (11.0-15.0) % Plt Count 334 (150-400) K/uL MPV 10.20 (7.40-12.00) fL Neut % (Auto) 74.1 (48.0-80.0) % Lymph % (Auto) 16.5 (16.0-40.0) % [place] % (Auto) 8.5 (0.0-15.0) % Eos % (Auto) 0.6 (0.0-7.0) % Baso % (Auto) 0.3 (0.0-1.5) % Neut # (Auto) 4.7 (1.4-5.7) K/uL Lymph # (Auto) 1.0 (0.6-2.4) K/uL [place] # (Auto) 0.5 (0.0-0.8) K/uL Eos # (Auto) 0.0 (0.0-0.7) K/uL Baso # (Auto) 0.0 (0.0-0.1) K/uL Nucleated RBC % 0.0 /100WBC Nucleated RBCs # 0 K/uL Sodium 139 (136-145) mmol/L Potassium 3.9 (3.5-5.1) mmol/L Chloride 105 (98-107) mmol/L Carbon Dioxide 24.5 (21.0-32.0) mmol/L BUN 12 (7.0-18.0) mg/dL Creatinine 1.3 H (0.6-1.0) mg/dL Est Cr Clr Drug Dosing 27.78 mL/min Estimated GFR (MDRD) 39.8 ml/min Glucose 120 H (74-106) mg/dL Lactic Acid (0.4-2.0) mmol/L Calcium 8.4 L (8.5-10.1) mg/dL Magnesium 1.9 (1.8-2.4) mg/dL Total Bilirubin 2.3 H (0.2-1.0) mg/dL AST 151 H (15-37) IU/L ALT 133 H (14-63) IU/L Alkaline Phosphatase 216 H (46-116) U/L Total Protein 7.1 (6.4-8.2) g/dL Albumin 2.7 L (3.4-5.0) g/dL Globulin 4.4 H (2.6-4.0) g/dL Albumin/Globulin Ratio 0.6 L (0.9-1.6) Lipase (73-393) U/L SARS-CoV-2 RNA (NISHA) NEGATIVE (NEGATIVE) 06/06/21 06/06/21 Range/Units 09:00 15:23 WBC (4.0-11.0) K/uL RBC (4.30-5.90) M/uL Hgb (12.0-16.0) g/dL Hct (36.0-46.0) % MCV (80.0-98.0) fL MCH (27.0-32.0) pg MCHC (31.0-37.0) g/dL RDW Std Deviation (28.0-62.0) fl RDW Coeff of Darling (11.0-15.0) % Plt Count (150-400) K/uL MPV (7.40-12.00) fL Neut % (Auto) (48.0-80.0) % Lymph % (Auto) (16.0-40.0) % [place] % (Auto) (0.0-15.0) % Eos % (Auto) (0.0-7.0) % Baso % (Auto) (0.0-1.5) % Neut # (Auto) (1.4-5.7) K/uL Lymph # (Auto) (0.6-2.4) K/uL [place] # (Auto) (0.0-0.8) K/uL Eos # (Auto) (0.0-0.7) K/uL Baso # (Auto) (0.0-0.1) K/uL Nucleated RBC % /100WBC Nucleated RBCs # K/uL Sodium 140 (136-145) mmol/L Potassium 3.8 (3.5-5.1) mmol/L Chloride 105 (98-107) mmol/L Carbon Dioxide 24.8 (21.0-32.0) mmol/L BUN 12 (7.0-18.0) mg/dL Creatinine 1.5 H (0.6-1.0) mg/dL Est Cr Clr Drug Dosing 24.08 mL/min Estimated GFR (MDRD) 33.8 ml/min Glucose 120 H (74-106) mg/dL Lactic Acid 0.8 (0.4-2.0) mmol/L Calcium 8.7 (8.5-10.1) mg/dL Magnesium (1.8-2.4) mg/dL Total Bilirubin 3.0 H (0.2-1.0) mg/dL AST 142 H (15-37) IU/L ALT 138 H (14-63) IU/L Alkaline Phosphatase 234 H (46-116) U/L Total Protein 7.3 (6.4-8.2) g/dL Albumin 2.9 L (3.4-5.0) g/dL Globulin 4.4 H (2.6-4.0) g/dL Albumin/Globulin Ratio 0.7 L (0.9-1.6) Lipase (73-393) U/L SARS-CoV-2 RNA (NISHA) (NEGATIVE) Result Diagrams: 06/06/21 09:00 06/06/21 15:23 Charli Results Last 24 hrs: Microbiology 06/06/21 01:22 Anaerobic Blood Culture - Final Blood - Venous - Lab Draw Sepsis Event Note - Evaluation Sepsis Screening Result: No Definite Risk - Focused Exam Vital Signs: Vital Signs Temp Pulse Resp BP Pulse Ox 06/06/21 12:31 36.4 C 91 16 128/77 92 L 06/06/21 08:31 36.6 C 83 16 105/53 L 91 L 06/06/21 06:11 37.6 C 85 20 110/41 L 95 Consult PN Assessment/Plan Procedures: Procedures ASSAY GLUCOSE BLOOD QUANT (04/15/21) ASSAY OF LACTIC ACID (04/15/21) ASSAY OF LIPASE (04/15/21) ASSAY OF MAGNESIUM (04/15/21) ASSAY OF PHOSPHORUS (04/15/21) ASSAY OF TROPONIN QUANT (04/15/21) BLOOD CULTURE FOR BACTERIA (04/15/21) BLOOD TRANSFUSION SERVICE (04/15/21) BLOOD TYPING SEROLOGIC ABO (04/15/21) BLOOD TYPING SEROLOGIC RH(D) (04/15/21) CLOSTRIDIUM AG IA (04/15/21) COMPATIBILITY TEST ANTIGLOB (04/15/21) COMPATIBILITY TEST INCUBATE (04/15/21) COMPATIBILITY TEST SPIN (04/15/21) COMPLETE CBC W/AUTO DIFF WBC (04/15/21) COMPREHEN METABOLIC PANEL (04/15/21) CT ABD & PELV W/CONTRAST (04/15/21) CT ANGIOGRAPHY CHEST (04/15/21) ECHO EXAM OF ABDOMEN (04/15/21) ELECTROCARDIOGRAM TRACING (04/15/21) EMERGENCY DEPT VISIT (04/15/21) EVALUATE SWALLOWING FUNCTION (04/15/21) HPYLORI STOOL AG IA (04/15/21) MRI ABDOMEN W/O DYE (04/15/21) OCCULT BLD FECES 1-3 TESTS (04/15/21) ORAL FUNCTION THERAPY (04/15/21) PROTHROMBIN TIME (04/15/21) RBC ANTIBODY SCREEN (04/15/21) ROUTINE VENIPUNCTURE (04/15/21) THER/PROPH/DIAG IV INF INIT (04/15/21) THROMBOPLASTIN TIME PARTIAL (04/15/21) TTE W/DOPPLER COMPLETE (04/15/21) TX/PRO/DX INJ NEW DRUG ADDON (04/15/21) URINALYSIS AUTO W/O SCOPE (04/15/21) (1) Elevated LFTs SNOMED Code(s): 492362629 Code(s): R79.89 - OTHER SPECIFIED ABNORMAL FINDINGS OF BLOOD CHEMISTRY Current Visit: Yes (2) Elevated bilirubin SNOMED Code(s): 47692193 Code(s): R17 - UNSPECIFIED JAUNDICE Current Visit: Yes (3) Acute cholecystitis SNOMED Code(s): 29660045 Code(s): K81.0 - ACUTE CHOLECYSTITIS Current Visit: No Problem List Initiated/Reviewed/Updated: Yes Plan: I visited with the patient's power of insurance defense attorney, her sister, Rosie. Originally surgery was declined when the patient was admitted a month and a half ago. However, given that this continues to cause issues, her sister feels that she would proceed with treatment surgical and/or otherwise. Her bilirubin and Alk Phos are higher than this morning this afternoon. We have no MRI available to rule out choledocholithiasis and cannot perform cholangiogram on weekends. Given the patient's comorbidities it would be better for her to be treated in a hospital with more resources as well. Visited with medicine team who will work on transferring patient.
--- NOTE | 2021-06-06 16:47 | PCM.DCSUM1 ---
Discharge Summary - Hospital Course Brief History: This 76-year-old female with past medical history of CVA with right hemiparesis, CKD, HLD, HTN CAD with PCI and recent acute cholecystitis presented to the ER with concerns of nausea vomiting and abdominal pain. Patient poor historian. Patient reports she is having abdominal pain with some mild nausea this morning. Otherwise unable to give accurate review of systems and/or medical history. Abdominal CT in the ER reveals acute cholecystitis with mild cholelithiasis. Right upper quadrant ultrasound also obtained which reveals cholelithiasis without sonographic evidence of cholecystitis mild hepatic steatosis. Patient was found to have leukocytosis at 11,000 890, hemoglobin 11.5. Chemistry reveals sodium 140 potassium 4.5 BUN 14 creatinine 1.4 lactic acid elevated at 2.3. Bilirubin elevated at 1.4 AST 212 ALT 148 alk phos 226. Lipase 229. She was treated with 1 L IV fluids in the ER along with Zosyn. Dr. Aguayo was consulted and discussed with the ER that from previous admission patient's POA had wanted surgical intervention to be last option due to her comorbidities and surgical risks. Patient will be admitted observation at this time for biliary colic possible acute cholecystitis. Rosie Grullon, POA sister [phone] makes all decisions - Discharge Data Discharge Date: 06/06/21 Discharge Disposition: DC/Tfer to Acute Hospital 02 Condition: Good - Referral to Home Health Primary Care Physician: Reji Contreras MD - Discharge Diagnosis/Problem(s) (1) Acute cholecystitis SNOMED Code(s): 00416281 ICD Code: K81.0 - ACUTE CHOLECYSTITIS Status: Acute Current Visit: No (2) Biliary colic SNOMED Code(s): 99337520 ICD Code: K80.50 - CALCULUS OF BILE DUCT W/O CHOLANGITIS OR CHOLECYST W/O OBST Status: Acute Current Visit: Yes (3) Elevated lactic acid level SNOMED Code(s): 1031544 ICD Code: R79.89 - OTHER SPECIFIED ABNORMAL FINDINGS OF BLOOD CHEMISTRY Status: Acute Current Visit: Yes (4) CAD (coronary artery disease) SNOMED Code(s): 59642818 ICD Code: I25.10 - ATHSCL HEART DISEASE OF [place] CORONARY ARTERY W/O ANG PCTRS Status: Chronic Current Visit: Yes (5) History of cerebrovascular accident with residual effects SNOMED Code(s): 306056870 ICD Code: I69.90 - UNSPECIFIED SEQUELAE OF UNSPECIFIED CEREBROVASCULAR DISEASE Status: Chronic Current Visit: Yes (6) HTN (hypertension) SNOMED Code(s): 58496213 ICD Code: I10 - ESSENTIAL (PRIMARY) HYPERTENSION Status: Chronic Current Visit: Yes (7) HLD (hyperlipidemia) SNOMED Code(s): 23413180 ICD Code: E78.5 - HYPERLIPIDEMIA, UNSPECIFIED Status: Chronic Current Visit: Yes (8) Right hemiparesis SNOMED Code(s): 298255522 ICD Code: G81.91 - HEMIPLEGIA, UNSPECIFIED AFFECTING RIGHT DOMINANT SIDE Status: Chronic Current Visit: Yes - Patient Summary/Data Consults: Consultations 06/06/21 12:16 Consult to Physician [CONS] Routine Hospital Course: Admission diagnoses Acute cholecystitis Discharge diagnosis acute cholecystitis with cholelithiasis and elevated bilirubin Kristi was admitted with abdominal pain found to have acute cholecystitis with transaminitis and hyperbilirubinemia. Dr. Aguayo general surgery was consulted. Bilirubin did improve crease since admission to 2.3 this morning. Repeat this afternoon shows continued increasing to 3.0. MRCP is unavailable within our fa cility over the next [address] Aguayo discussed with JG Velez patient's sister regarding the need for further imaging and possible surgery. Rosie now agrees that to decrease the chance of this happening again she would agree to surgery. Patient has been treated with Zosyn along with gentle IV fluids. Blood cultures pending. Spoke with Dr. Swenson, hospitalist at [facility]. He has kindly accepted patient for transfer at this time. I have discussed transfer with sister who is in agreement at this time. Patient will be transferred via ground ambulance to [facility]. JG Peterson sister [phone] - Discharge Plan *PRESCRIPTION DRUG MONITORING PROGRAM REVIEWED*: Not Applicable *COPY OF PRESCRIPTION DRUG MONITORING REPORT IN PATIENT PRICE: Not Applicable Home Medications: Home Meds Aspirin [Aspirin EC] 81 mg PO DAILY 04/15/21 [History] Calcium Carbonate/Vitamin D3 [Calcium 500-Vit D3 200 Caplet] 1 tab PO DAILY 04/15/21 [History] Docusate Sodium [Colace] 200 mg PO DAILY 04/15/21 [History] Escitalopram [Lexapro] 10 mg PO DAILY 04/15/21 [History] Magnesium Hydroxide [Milk of Magnesia] 30 ml PO DAILY PRN 04/15/21 [History] Mirtazapine 30 mg PO BEDTIME 04/15/21 [History] bisacodyL [Dulcolax] 5 mg PO DAILY PRN 04/15/21 [History] bisacodyL [Dulcolax] 10 mg RC DAILY PRN 04/15/21 [History] polyethylene glycoL 3350 [MiraLAX] 17 gm PO DAILY 04/15/21 [History] Pantoprazole Sodium [Protonix] 40 mg PO DAILY #20 tablet.dr 04/19/21 [Rx] levoFLOXacin [Levaquin] 750 mg PO DAILY #6 tab 04/19/21 [Rx] metroNIDAZOLE [Flagyl] 500 mg PO Q8H #18 tab 04/19/21 [Rx] Patient Handouts: Biliary Colic, Adult Referrals: Reji Contreras MD [Primary Care Provider] - - Discharge Summary/Plan Comment DC Time >30 min.: Yes Total # of Minutes for Discharge Time: 35 arranging transfer - Patient Data Vitals - Most Recent: Last Vital Signs Temp 97.6 F 06/06/21 12:31 Pulse 91 06/06/21 12:31 Resp 16 06/06/21 12:31 BP 128/77 06/06/21 12:31 Pulse Ox 92 L 06/06/21 12:31 Weight - Most Recent: 59.874 kg I&O - Last 24 hours: Intake & Output 06/06/21 06/06/21 06/06/21 06:59 14:59 22:59 Intake Total 50 539 Output Total 500 Balance 50 39 Lab Results - Last 24 hrs: Laboratory Results - last 24 hr 06/05/21 06/05/21 06/05/21 Range/Units 23:50 23:50 23:50 WBC 11.89 H (4.0-11.0) K/uL RBC 4.87 (4.30-5.90) M/uL Hgb 11.5 L (12.0-16.0) g/dL Hct 37.5 (36.0-46.0) % MCV 77.0 L (80.0-98.0) fL MCH 23.6 L (27.0-32.0) pg MCHC 30.7 L (31.0-37.0) g/dL RDW Std Deviation 61.9 (28.0-62.0) fl RDW Coeff of Darling 22 H (11.0-15.0) % Plt Count 389 (150-400) K/uL MPV 10.10 (7.40-12.00) fL Neut % (Auto) 84.8 H (48.0-80.0) % Lymph % (Auto) 8.3 L (16.0-40.0) % [place] % (Auto) 6.8 (0.0-15.0) % Eos % (Auto) 0.0 (0.0-7.0) % Baso % (Auto) 0.1 (0.0-1.5) % Neut # (Auto) 10.1 H (1.4-5.7) K/uL Lymph # (Auto) 1.0 (0.6-2.4) K/uL [place] # (Auto) 0.8 (0.0-0.8) K/uL Eos # (Auto) 0.0 (0.0-0.7) K/uL Baso # (Auto) 0.0 (0.0-0.1) K/uL Nucleated RBC % 0.0 /100WBC Nucleated RBCs # 0 K/uL Sodium 140 (136-145) mmol/L Potassium 4.5 (3.5-5.1) mmol/L Chloride 102 (98-107) mmol/L Carbon Dioxide 27.4 (21.0-32.0) mmol/L BUN 14 (7.0-18.0) mg/dL Creatinine 1.4 H (0.6-1.0) mg/dL Est Cr Clr Drug Dosing 25.80 mL/min Estimated GFR (MDRD) 36.6 ml/min Glucose 167 H (74-106) mg/dL Lactic Acid 2.3 H* (0.4-2.0) mmol/L Calcium 9.0 (8.5-10.1) mg/dL Magnesium (1.8-2.4) mg/dL Total Bilirubin 1.4 H (0.2-1.0) mg/dL AST 212 H (15-37) IU/L ALT 148 H (14-63) IU/L Alkaline Phosphatase 226 H (46-116) U/L Total Protein 8.1 (6.4-8.2) g/dL Albumin 3.1 L (3.4-5.0) g/dL Globulin 5.0 H (2.6-4.0) g/dL Albumin/Globulin Ratio 0.6 L (0.9-1.6) Lipase 229 (73-393) U/L SARS-CoV-2 RNA (NISHA) (NEGATIVE) 06/06/21 06/06/21 06/06/21 Range/Units 01:50 09:00 09:00 WBC 6.32 (4.0-11.0) K/uL RBC 4.34 (4.30-5.90) M/uL Hgb 10.2 L (12.0-16.0) g/dL Hct 33.6 L (36.0-46.0) % MCV 77.4 L (80.0-98.0) fL MCH 23.5 L (27.0-32.0) pg MCHC 30.4 L (31.0-37.0) g/dL RDW Std Deviation 62.3 H (28.0-62.0) fl RDW Coeff of Darling 22 H (11.0-15.0) % Plt Count 334 (150-400) K/uL MPV 10.20 (7.40-12.00) fL Neut % (Auto) 74.1 (48.0-80.0) % Lymph % (Auto) 16.5 (16.0-40.0) % [place] % (Auto) 8.5 (0.0-15.0) % Eos % (Auto) 0.6 (0.0-7.0) % Baso % (Auto) 0.3 (0.0-1.5) % Neut # (Auto) 4.7 (1.4-5.7) K/uL Lymph # (Auto) 1.0 (0.6-2.4) K/uL [place] # (Auto) 0.5 (0.0-0.8) K/uL Eos # (Auto) 0.0 (0.0-0.7) K/uL Baso # (Auto) 0.0 (0.0-0.1) K/uL Nucleated RBC % 0.0 /100WBC Nucleated RBCs # 0 K/uL Sodium 139 (136-145) mmol/L Potassium 3.9 (3.5-5.1) mmol/L Chloride 105 (98-107) mmol/L Carbon Dioxide 24.5 (21.0-32.0) mmol/L BUN 12 (7.0-18.0) mg/dL Creatinine 1.3 H (0.6-1.0) mg/dL Est Cr Clr Drug Dosing 27.78 mL/min Estimated GFR (MDRD) 39.8 ml/min Glucose 120 H (74-106) mg/dL Lactic Acid (0.4-2.0) mmol/L Calcium 8.4 L (8.5-10.1) mg/dL Magnesium 1.9 (1.8-2.4) mg/dL Total Bilirubin 2.3 H (0.2-1.0) mg/dL AST 151 H (15-37) IU/L ALT 133 H (14-63) IU/L Alkaline Phosphatase 216 H (46-116) U/L Total Protein 7.1 (6.4-8.2) g/dL Albumin 2.7 L (3.4-5.0) g/dL Globulin 4.4 H (2.6-4.0) g/dL Albumin/Globulin Ratio 0.6 L (0.9-1.6) Lipase (73-393) U/L SARS-CoV-2 RNA (NISHA) NEGATIVE (NEGATIVE) 06/06/21 06/06/21 Range/Units 09:00 15:23 WBC (4.0-11.0) K/uL RBC (4.30-5.90) M/uL Hgb (12.0-16.0) g/dL Hct (36.0-46.0) % MCV (80.0-98.0) fL MCH (27.0-32.0) pg MCHC (31.0-37.0) g/dL RDW Std Deviation (28.0-62.0) fl RDW Coeff of [place] (11.0-15.0) % Plt Count (150-400) K/uL MPV (7.40-12.00) fL Neut % (Auto) (48.0-80.0) % Lymph % (Auto) (16.0-40.0) % [place] % (Auto) (0.0-15.0) % Eos % (Auto) (0.0-7.0) % Baso % (Auto) (0.0-1.5) % Neut # (Auto) (1.4-5.7) K/uL Lymph # (Auto) (0.6-2.4) K/uL [place] # (Auto) (0.0-0.8) K/uL Eos # (Auto) (0.0-0.7) K/uL Baso # (Auto) (0.0-0.1) K/uL Nucleated RBC % /100WBC Nucleated RBCs # K/uL Sodium 140 (136-145) mmol/L Potassium 3.8 (3.5-5.1) mmol/L Chloride 105 (98-107) mmol/L Carbon Dioxide 24.8 (21.0-32.0) mmol/L BUN 12 (7.0-18.0) mg/dL Creatinine 1.5 H (0.6-1.0) mg/dL Est Cr Clr Drug Dosing 24.08 mL/min Estimated GFR (MDRD) 33.8 ml/min Glucose 120 H (74-106) mg/dL Lactic Acid 0.8 (0.4-2.0) mmol/L Calcium 8.7 (8.5-10.1) mg/dL Magnesium (1.8-2.4) mg/dL Total Bilirubin 3.0 H (0.2-1.0) mg/dL AST 142 H (15-37) IU/L ALT 138 H (14-63) IU/L Alkaline Phosphatase 234 H (46-116) U/L Total Protein 7.3 (6.4-8.2) g/dL Albumin 2.9 L (3.4-5.0) g/dL Globulin 4.4 H (2.6-4.0) g/dL Albumin/Globulin Ratio 0.7 L (0.9-1.6) Lipase (73-393) U/L SARS-CoV-2 RNA (NISHA) (NEGATIVE) NATALY Results - Last 24 hrs: Microbiology 06/06/21 01:22 Anaerobic Blood Culture - Final Blood - Venous - Lab Draw Med Orders - Current: Current Medications Lactated Ringer's (Ringers, Lactated) 1,000 mls @ 100 mls/hr IV Q10H [facility] Last Admin: 06/06/21 09:34 Dose: 100 mls/hr Documented by: Piperacillin Sod/Tazobactam (Sod 2.25 gm/ Sodium Chloride) 50 mls @ 50 mls/hr IV Q6H [facility] Last Admin: 06/06/21 15:10 Dose: 50 mls/hr Documented by: Morphine Sulfate (Morphine 2 Mg/Ml Syringe) 2 mg IVPUSH Q4H PRN PRN Reason: Pain (severe 7-10) Last Admin: 06/06/21 09:26 Dose: 2 mg Documented by: Pantoprazole Sodium (Pantoprazole 40 Mg/10 Ml Syringe) 40 mg IVPUSH Q24H [facility] Last Admin: 06/06/21 09:44 Dose: 40 mg Documented by: Sodium Chloride (Sodium Chloride 0.9% 2.5 Ml Syringe) 2.5 ml FLUSH ASDIRECTED PRN PRN Reason: Keep Vein Open Discontinued Medications Lactated Ringer's (Ringers, Lactated) 1,000 mls @ 999 mls/hr IV .BOLUS ONE Stop: 06/05/21 23:53 Last Admin: 06/05/21 23:59 Dose: 999 mls/hr Documented by: Piperacillin Sod/Tazobactam (Sod 4.5 gm/ Sodium Chloride) 100 mls @ 100 mls/hr IV ONETIME ONE Stop: 06/06/21 01:22 Last Admin: 06/06/21 01:18 Dose: 100 mls/hr Documented by: Piperacillin Sod/Tazobactam (Sod 2.25 gm/ Sodium Chloride) 100 mls @ 100 mls/hr IV Q6H [facility] Last Admin: 06/06/21 09:38 Dose: Not Given Documented by: Sodium Chloride (Normal Saline Advbag) Confirm Administered Dose 50 mls @ as directed .ROUTE .STK-MED ONE Stop: 06/06/21 15:08 Last Admin: 06/06/21 15:07 Dose: 50 mls/hr Documented by: Metoclopramide HCl (Metoclopramide 10 Mg/2 Ml Sdv) 5 mg IVPUSH ONETIME ONE Stop: 06/05/21 22:54 Last Admin: 06/06/21 00:01 Dose: 5 mg Documented by: Morphine Sulfate (Morphine 2 Mg/Ml Syringe) 2 mg IVPUSH ONETIME ONE Stop: 06/05/21 22:54 Last Admin: 06/06/21 00:02 Dose: 2 mg Documented by: Sodium Chloride (Sodium Chloride 0.9% 10 Ml Syringe) 10 ml FLUSH ASDIRECTED PRN PRN Reason: Keep Vein Open Last Admin: 06/06/21 01:18 Dose: 10 ml Documented by: Sodium Chloride (Sodium Chloride 0.9% 2.5 Ml Syringe) 2.5 ml FLUSH ASDIRECTED PRN PRN Reason: Keep Vein Open Last Admin: 06/06/21 01:18 Dose: 2.5 ml Documented by:
[2021-06-07] MEDS: Piperacillin/Tazobactam 2.25 GM in Sodium Chloride 0.9% 50 ML IV SCH (03:51)
== END 2021-06-07 05:05 ==
LOC: MW.ED 21:50 → MW.MS 06-06 04:07
PROVIDERS: ADMIT Internal Medicine; ATTEND Internal Medicine
DX: K80.44 Calculus of bile duct with chronic cholecystitis without obstruction (principal); I12.9 Hypertensive chronic kidney disease with stage 1 through stage 4 chronic kidney disease, or unspecified chronic kidney disease; N18.9 Chronic kidney disease, unspecified; I25.10 Atherosclerotic heart disease of native coronary artery without angina pectoris; E78.00 Pure hypercholesterolemia, unspecified; G81.91 Hemiplegia, unspecified affecting right dominant side; Z79.82 Long term (current) use of aspirin; Z86.73 Personal history of transient ischemic attack (TIA), and cerebral infarction without residual deficits; Z79.899 Other long term (current) drug therapy; Z20.822 Contact with and (suspected) exposure to COVID-19
CPT/HCPCS: 36415; 74176; 74176-26; 76705; 76705-26; 80053; 83605; 83690; 83735; 85025; 87040; 93005; 96365; 96375; 99285-25; C9113; J2270; J2543; J2765; J7120; U0002

== ENCOUNTER 2021-06-09 11:52 | Inpatient (IN) | payer MEDICARE, MEDICAID ==
--- NOTE | 2021-06-09 18:10 | PCM.HP.2 ---
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 The patient was here on May, and was sent out for surgery in [place] due to biliary colic/gallstones. An MRCP was positive for a stone in her ducts. She had an ERCP and a cholecystectomy done in [place] which was completed laparoscopically and was successful. These procedures could not be completed here in [place] due to lack of personnel and healthcare professionals capable. While she was in [place] she was being fed a pured diet, more specifically soft mashed potatoes which she tolerated well. She has been having regular bowel movements and has no issues with urination. She is a poor historian but says her pain is limited. The goal is to have her here at the hospital in order to stabilize her before she can be discharged back to [place]. We will make sure to order labs including CBC and CMP, to give her a pured diet she can tolerate, and to treat her past medical history with the appropriate medications. - Related Data Allergies/Adverse Reactions: Allergies Allergy/AdvReac Type Severity Reaction Status Date / Time No Known Allergies Allergy Verified 06/09/21 16:05 Home Medications: Home Meds Aspirin [Aspirin EC] 81 mg PO DAILY 04/15/21 [History] Calcium Carbonate/Vitamin D3 [Calcium 500-Vit D3 200 Caplet] 1 tab PO DAILY 04/15/21 [History] Docusate Sodium [Colace] 200 mg PO DAILY 04/15/21 [History] Escitalopram [Lexapro] 10 mg PO DAILY 04/15/21 [History] Magnesium Hydroxide [Milk of Magnesia] 30 ml PO BEDTIME PRN 04/15/21 [History] Mirtazapine 30 mg PO BEDTIME 04/15/21 [History] bisacodyL [Dulcolax] 5 mg PO DAILY PRN 04/15/21 [History] bisacodyL [Dulcolax] 10 mg RC DAILY PRN 04/15/21 [History] polyethylene glycoL 3350 [MiraLAX] 17 gm PO DAILY 04/15/21 [History] Pantoprazole Sodium [Protonix] 40 mg PO DAILY #20 tablet. 04/19/21 [Rx] levoFLOXacin [Levaquin] 750 mg PO DAILY #6 tab 04/19/21 [Rx] metroNIDAZOLE [Flagyl] 500 mg PO Q8H #18 tab 04/19/21 [Rx] Past Medical History HEENT History: Reports: None Cardiovascular History: Reports: High Cholesterol, Hypertension, Other (See Below) Other Cardiovascular History: athersclerotic heart disease Respiratory History: Reports: SOB Gastrointestinal History: Reports: None Genitourinary History: Reports: Renal Disease, Other (See Below) Other Genitourinary History: hypertensive chronic kidney disease [employer]IM[employer] HAND History: Reports: None Musculoskeletal History: Reports: Other (See Below) Other Musculoskeletal History: muscle weakness, facial weakness following cerebral infarction Neurological History: Reports: CVA Psychiatric History: Reports: Depression Endocrine/Metabolic History: Reports: None Hematologic History: Reports: Other (See Below) Other Hematologic History: hypocalcemia Immunologic History: Reports: None Oncologic (Cancer) History: Reports: None Dermatologic History: Reports: None - Infectious Disease History Infectious Disease History: Reports: None - Past Surgical History Head Surgeries/Procedures: Reports: None HEENT Surgical History: Reports: None Cardiovascular Surgical History: Reports: Other (See Below) Other Cardiovascular Surgeries/Procedures: Coronary angioplasty implant and graft Respiratory Surgical History: Reports: None GI Surgical History: Reports: Colonoscopy Female Surgical History: Reports: Hysterectomy Endocrine Surgical History: Reports: None Neurological Surgical History: Reports: None Musculoskeletal Surgical History: Reports: None Oncologic Surgical History: Reports: None Dermatological Surgical History: Reports: None Social & Family History - Family History Family Medical History: No Pertinent Family History - Caffeine Use Caffeine Use: Reports: None H&P Review of Systems - Review of Systems: Review Of Systems: See Below General: Reports: Other (The patient is a poor historian due to her expressive aphasia secondary to CVA, she can make use and when asked questions repeatedly she can say yes or no.When asked if she has any abdominal pain she cued over her laparoscopic incisions. She denies chest pain, palpitations, urinary/bowel issues) Exam - Exam Exam: See Below - Exam General: Cooperative, Other (Patient is an elderly woman with expressive aphasia and is not oriented to time or place) HEENT: Mucosa Moist & [place] Neck: Trachea Midline Lungs: Clear to Auscultation, Normal Respiratory Effort Cardiovascular: Regular Rate, Regular Rhythm GI/Abdominal Exam: Normal Bowel Sounds, Other (For laparoscopic incisional scars over abdomen) - Problem List (1) S/P cholecystectomy SNOMED Code(s): 014205115, 25320303, 204392738 ICD Code: Z90.49 - ACQUIRED ABSENCE OF OTHER SPECIFIED PARTS OF DIGESTIVE TRACT Status: Acute Current Visit: Yes (2) Acute cholecystitis SNOMED Code(s): 25566596 ICD Code: K81.0 - ACUTE CHOLECYSTITIS Status: Acute Current Visit: No (3) CAD (coronary artery disease) SNOMED Code(s): 12927787 ICD Code: I25.10 - ATHSCL HEART DISEASE OF [place] CORONARY ARTERY W/O ANG PCTRS Status: Chronic Current Visit: No (4) HLD (hyperlipidemia) SNOMED Code(s): 10351602 ICD Code: E78.5 - HYPERLIPIDEMIA, UNSPECIFIED Status: Chronic Current Visit: No (5) HTN (hypertension) SNOMED Code(s): 97963585 ICD Code: I10 - ESSENTIAL (PRIMARY) HYPERTENSION Status: Chronic Current Visit: No (6) History of cerebrovascular accident with residual effects SNOMED Code(s): 039525547 ICD Code: I69.90 - UNSPECIFIED SEQUELAE OF UNSPECIFIED CEREBROVASCULAR DISEASE Status: Chronic Current Visit: No (7) Depression SNOMED Code(s): 72508596 ICD Code: F32.A - DEPRESSION, UNSPECIFIED Status: Acute Current Visit: Yes Problem List Initiated/Reviewed/Updated: Yes Orders Last 24hrs: Active Orders 24 hr Category Date Time Status Pureed Diet [DIET] Diet 06/09/21 Dinner Active CBC WITH AUTO DIFF [HEME] AM Lab 06/10/21 05:11 Ordered CBC WITH AUTO DIFF [HEME] AM Lab 06/11/21 05:11 Ordered CBC WITH AUTO DIFF [HEME] AM Lab 06/12/21 05:11 Ordered CMP [COMPREHENSIVE METABOLIC PN,CMP] [CHEM] AM Lab 06/10/21 05:11 Ordered CMP [COMPREHENSIVE METABOLIC PN,CMP] [CHEM] AM Lab 06/11/21 05:11 Ordered CMP [COMPREHENSIVE METABOLIC PN,CMP] [CHEM] AM Lab 06/12/21 05:11 Ordered Aspirin [Halfprin] Med 06/10/21 09:00 Ordered 81 mg PO DAILY Enoxaparin [Lovenox] Med 06/09/21 18:00 Ordered 40 mg SUBCUT Q24H Escitalopram [Lexapro] Med 06/10/21 09:00 Ordered 10 mg PO DAILY Mirtazapine Med 06/09/21 21:00 Ordered 30 mg PO BEDTIME Pantoprazole [ProTONIX] Med 06/10/21 09:00 Ordered 40 mg PO DAILY Code Status [Resuscitation Status] Routine Resus Stat 06/09/21 18:01 Ordered Medication Orders Aspirin (Aspirin 81 Mg Tab.Ec) 81 mg PO DAILY [facility]NA Enoxaparin Sodium (Enoxaparin 40 Mg/0.4 Ml Syringe) 40 mg SUBCUT Q24H [facility] Escitalopram Oxalate (Escitalopram 10 Mg Tab) 10 mg PO DAILY [facility]NA Non-Formulary Medication (Mirtazapine) 30 mg PO BEDTIME [facility]IANA Pantoprazole Sodium (Pantoprazole 40 Mg Tab.Cr) 40 mg PO DAILY [facility]IANA Assessment/Plan Comment:: Admit the patient to the medical floor, vitals per unit routine, activity up ad maria luz., pured diet, DVT prophylaxis with Lovenox 40 mg subcutaneously once a day, GI prophylaxis with pantoprazole 40 mg per oral route once a day, patient is DNI/DNR 1. Status post cholecystectomy/ERCP -Continue to monitor the patient for any pain and treat accordingly, incision site is healing well, patient is not complaining of pain -Patient is on a pured diet which is easy to tolerate for her -We will monitor patient daily with CMP/CBC 2. Past medical history of CVA,, CAD, depression -Continue aspirin, escitalopram, and mirtazapine Disposition: Once the patient is stabilized she will be transferred back to [facility]
[2021-06-09] MEDS ORDERED: Enoxaparin 40 MG/0.4 ML Syringe SUBCUT ONE (20:30)
[2021-06-09] MEDS: Mirtazapine 15 MG Tab PO SCH (20:47)
[2021-06-09] MEDS ORDERED: Enoxaparin 30 MG/0.3 ML Syringe SUBCUT SCH (21:30)
[2021-06-10 06:22] LABS: CARBON DIOXIDE,CO2 27.9 mmol/L (21.0-32.0); POTASSIUM,K 3.8 mmol/L (3.5-5.1)
[2021-06-10] MEDS: Escitalopram 10 MG Tab PO SCH (08:07)
[2021-06-10] MEDS: Aspirin 81 MG Tab.EC PO SCH (08:07)
[2021-06-10] MEDS: Enoxaparin 30 MG/0.3 ML Syringe SUBCUT SCH (08:07)
[2021-06-10] MEDS: Pantoprazole 40 MG Tab.CR PO SCH (08:07)
--- NOTE | 2021-06-10 17:09 | PCM.PN ---
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 The patient is a poor historian and cannot answer elaborate questions but can answer yes or no questions. When asked if she had pain today she nodded no, when asked if she was eating and drinking okay she nodded yes, when asked if she was using the restroom she nodded yes. The patient's incisional scars are healing well and her labs are back to her baseline. She is currently stable and will be discharged back to [facility] tomorrow after paperwork has been completed here at the hospital. - Review of Systems General: Reports: Other (The patient is a poor historian and can only answer yes or no questions through nodding, please refer to the HPI) - Patient Data Vitals - Most Recent: Last Vital Signs Temp 97.4 F 06/10/21 11:00 Pulse 82 06/10/21 11:00 Resp 16 06/10/21 11:00 BP 163/74 H 06/10/21 11:00 Pulse Ox 88 L 06/10/21 11:00 Weight - Most Recent: 137 lb 11.2 oz I&O - Last 24 Hours: Intake & Output 06/10/21 06/10/21 06/10/21 06:59 14:59 22:59 Intake Total 500 550 Balance 500 550 Lab Results Last 24 Hours: Laboratory Results - last 24 hr 06/10/21 06/10/21 Range/Units 05:29 05:29 WBC 5.82 (4.0-11.0) K/uL RBC 4.12 L (4.30-5.90) M/uL Hgb 9.7 L (12.0-16.0) g/dL Hct 32.9 L (36.0-46.0) % MCV 79.9 L (80.0-98.0) fL MCH 23.5 L (27.0-32.0) pg MCHC 29.5 L (31.0-37.0) g/dL RDW Std Deviation 66.5 H (28.0-62.0) fl RDW Coeff of [place] 23 H (11.0-15.0) % Plt Count 344 (150-400) K/uL MPV 10.20 (7.40-12.00) fL Neut % (Auto) 44.8 L (48.0-80.0) % Lymph % (Auto) 40.4 H (16.0-40.0) % [place] % (Auto) 9.8 (0.0-15.0) % Eos % (Auto) 4.1 (0.0-7.0) % Baso % (Auto) 0.9 (0.0-1.5) % Neut # (Auto) 2.6 (1.4-5.7) K/uL Lymph # (Auto) 2.4 (0.6-2.4) K/uL [place] # (Auto) 0.6 (0.0-0.8) K/uL Eos # (Auto) 0.2 (0.0-0.7) K/uL Baso # (Auto) 0.1 (0.0-0.1) K/uL Nucleated RBC % 0.0 /100WBC Nucleated RBCs # 0 K/uL Sodium 143 (136-145) mmol/L Potassium 3.8 (3.5-5.1) mmol/L Chloride 108 H (98-107) mmol/L Carbon Dioxide 27.9 (21.0-32.0) mmol/L BUN 14 (7.0-18.0) mg/dL Creatinine 1.1 H (0.6-1.0) mg/dL Est Cr Clr Drug Dosing 32.83 mL/min Estimated GFR (MDRD) 48.3 ml/min Glucose 93 (74-106) mg/dL Calcium 8.4 L (8.5-10.1) mg/dL Total Bilirubin 0.4 (0.2-1.0) mg/dL AST 58 H (15-37) IU/L ALT 107 H (14-63) IU/L Alkaline Phosphatase 172 H (46-116) U/L Total Protein 6.5 (6.4-8.2) g/dL Albumin 2.4 L (3.4-5.0) g/dL Globulin 4.1 H (2.6-4.0) g/dL Albumin/Globulin Ratio 0.6 L (0.9-1.6) Med Orders - Current: Current Medications Aspirin (Aspirin 81 Mg Tab.Ec) 81 mg PO DAILY [facility] Last Admin: 06/10/21 08:07 Dose: 81 mg Documented by: Enoxaparin Sodium (Enoxaparin 30 Mg/0.3 Ml Syringe) 30 mg SUBCUT Q24H [facility] Last Admin: 06/10/21 08:07 Dose: 30 mg Documented by: Escitalopram Oxalate (Escitalopram 10 Mg Tab) 10 mg PO DAILY [facility] Last Admin: 06/10/21 08:07 Dose: 10 mg Documented by: Mirtazapine (Mirtazapine 15 Mg Tab) 30 mg PO BEDTIME [facility] Last Admin: 06/09/21 20:47 Dose: 30 mg Documented by: Pantoprazole Sodium (Pantoprazole 40 Mg Tab.Cr) 40 mg PO DAILY [facility] Last Admin: 06/10/21 08:07 Dose: 40 mg Documented by: Discontinued Medications Enoxaparin Sodium (Enoxaparin 30 Mg/0.3 Ml Syringe) 30 mg SUBCUT Q24H [facility] Last Admin: 06/10/21 07:03 Dose: Not Given Documented by: - Exam General: Cooperative, No Acute Distress HEENT: Mucous Membr. Moist/[place] Neck: Trachea Midline Lungs: Clear to Auscultation, Normal Respiratory Effort Cardiovascular: Regular Rate, Regular Rhythm GI/Abdominal Exam: Other (For incisional scars that are healing well on abdomen) - Patient Data Lab Results Last 24 hrs: Laboratory Results - last 24 hr 06/10/21 06/10/21 Range/Units 05:29 05:29 WBC 5.82 (4.0-11.0) K/uL RBC 4.12 L (4.30-5.90) M/uL Hgb 9.7 L (12.0-16.0) g/dL Hct 32.9 L (36.0-46.0) % MCV 79.9 L (80.0-98.0) fL MCH 23.5 L (27.0-32.0) pg MCHC 29.5 L (31.0-37.0) g/dL RDW Std Deviation 66.5 H (28.0-62.0) fl RDW Coeff of [place] 23 H (11.0-15.0) % Plt Count 344 (150-400) K/uL MPV 10.20 (7.40-12.00) fL Neut % (Auto) 44.8 L (48.0-80.0) % Lymph % (Auto) 40.4 H (16.0-40.0) % [place] % (Auto) 9.8 (0.0-15.0) % Eos % (Auto) 4.1 (0.0-7.0) % Baso % (Auto) 0.9 (0.0-1.5) % Neut # (Auto) 2.6 (1.4-5.7) K/uL Lymph # (Auto) 2.4 (0.6-2.4) K/uL [place] # (Auto) 0.6 (0.0-0.8) K/uL Eos # (Auto) 0.2 (0.0-0.7) K/uL Baso # (Auto) 0.1 (0.0-0.1) K/uL Nucleated RBC % 0.0 /100WBC Nucleated RBCs # 0 K/uL Sodium 143 (136-145) mmol/L Potassium 3.8 (3.5-5.1) mmol/L Chloride 108 H (98-107) mmol/L Carbon Dioxide 27.9 (21.0-32.0) mmol/L BUN 14 (7.0-18.0) mg/dL Creatinine 1.1 H (0.6-1.0) mg/dL Est Cr Clr Drug Dosing 32.83 mL/min Estimated GFR (MDRD) 48.3 ml/min Glucose 93 (74-106) mg/dL Calcium 8.4 L (8.5-10.1) mg/dL Total Bilirubin 0.4 (0.2-1.0) mg/dL AST 58 H (15-37) IU/L ALT 107 H (14-63) IU/L Alkaline Phosphatase 172 H (46-116) U/L Total Protein 6.5 (6.4-8.2) g/dL Albumin 2.4 L (3.4-5.0) g/dL Globulin 4.1 H (2.6-4.0) g/dL Albumin/Globulin Ratio 0.6 L (0.9-1.6) Result Diagrams: 06/10/21 05:29 06/10/21 05:29 Sepsis Event Note - Evaluation Sepsis Screening Result: No Definite Risk - Focused Exam Vital Signs: Vital Signs Temp Pulse Resp BP Pulse Ox 06/10/21 11:00 97.4 F 82 16 163/74 H 88 L 06/10/21 07:59 97.1 F 66 16 156/74 H 90 L - Problem List & Annotations (1) S/P cholecystectomy SNOMED Code(s): 433362016, 85809383, 919597511 Code(s): Z90.49 - ACQUIRED ABSENCE OF OTHER SPECIFIED PARTS OF DIGESTIVE TRACT Status: Acute Current Visit: Yes (2) Acute cholecystitis SNOMED Code(s): 10480198 Code(s): K81.0 - ACUTE CHOLECYSTITIS Status: Acute Current Visit: No (3) CAD (coronary artery disease) SNOMED Code(s): 23169047 Code(s): I25.10 - ATHSCL HEART DISEASE OF [place] CORONARY ARTERY W/O ANG PCTRS Status: Chronic Current Visit: No (4) HLD (hyperlipidemia) SNOMED Code(s): 20770114 Code(s): E78.5 - HYPERLIPIDEMIA, UNSPECIFIED Status: Chronic Current Visit: No (5) HTN (hypertension) SNOMED Code(s): 90610430 Code(s): I10 - ESSENTIAL (PRIMARY) HYPERTENSION Status: Chronic Current Visit: No (6) History of cerebrovascular accident with residual effects SNOMED Code(s): 668567250 Code(s): I69.90 - UNSPECIFIED SEQUELAE OF UNSPECIFIED CEREBROVASCULAR DISEASE Status: Chronic Current Visit: No (7) Depression SNOMED Code(s): 11591392 Code(s): F32.A - DEPRESSION, UNSPECIFIED Status: Acute Current Visit: Yes - Problem List Review Problem List Initiated/Reviewed/Updated: Yes - My Orders Last 24 Hours: My Active Orders 06/09/21 18:01 Code Status [Resuscitation Status] Routine 06/09/21 21:00 Mirtazapine [Remeron] 30 mg PO BEDTIME 06/10/21 09:00 Aspirin [Halfprin] 81 mg PO DAILY Enoxaparin [Lovenox] 30 mg SUBCUT Q24H Escitalopram [Lexapro] 10 mg PO DAILY Pantoprazole [ProTONIX] 40 mg PO DAILY 06/11/21 05:11 CBC WITH AUTO DIFF [HEME] AM CMP [COMPREHENSIVE METABOLIC PN,CMP] [CHEM] AM 06/12/21 05:11 CBC WITH AUTO DIFF [HEME] AM CMP [COMPREHENSIVE METABOLIC PN,CMP] [CHEM] AM - Plan Plan:: 1. Status post cholecystectomy/ERCP -Continue to monitor the patient for any pain, incision site is healing well -Patient is on a pured diet which is easy to tolerate for her -We will monitor patient daily with CMP/CBC 2. Past medical history of CVA,, CAD, depression -Continue aspirin, escitalopram, and mirtazapine Disposition: Patient to be discharged back to [facility] tomorrow
--- NOTE | 2021-06-10 17:12 | PCM.DCSUM1 ---
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 While in hospital here in [place], the patient was found to have gallstones that needed operate therapy which could not be conducted here. As a result the patient was shifted out to [place] and had an MRCP done which showed gallstones, and she also had an ERCP and cholecystectomy. Once stabilized in [place] the patient was transferred back to [place]. Over the past 48 hours, she has tolerated a pured diet well including soft mashed potatoes, and had no issues with urination and/or defecation. She had no signs of pain or infection on the incisional site of her laparoscopic cholecystectomy. The patient is stable and we are awaiting paperwork to be sent from [facility] to the hospital here to be completed before she can be sent back. - Discharge Data Discharge Date: 06/11/21 Discharge Disposition: DC/Tfer to SNF 03 Condition: Good - Referral to Home Health Primary Care Physician: PCP None - Discharge Diagnosis/Problem(s) (1) S/P cholecystectomy SNOMED Code(s): 859538915, 62398753, 139979202 ICD Code: Z90.49 - ACQUIRED ABSENCE OF OTHER SPECIFIED PARTS OF DIGESTIVE TRACT Status: Acute Current Visit: Yes (2) Acute cholecystitis SNOMED Code(s): 29629284 ICD Code: K81.0 - ACUTE CHOLECYSTITIS Status: Acute Current Visit: No (3) CAD (coronary artery disease) SNOMED Code(s): 14864866 ICD Code: I25.10 - ATHSCL HEART DISEASE OF [place] CORONARY ARTERY W/O ANG PCTRS Status: Chronic Current Visit: No (4) HLD (hyperlipidemia) SNOMED Code(s): 74234864 ICD Code: E78.5 - HYPERLIPIDEMIA, UNSPECIFIED Status: Chronic Current Visit: No (5) HTN (hypertension) SNOMED Code(s): 38148220 ICD Code: I10 - ESSENTIAL (PRIMARY) HYPERTENSION Status: Chronic Current Visit: No (6) History of cerebrovascular accident with residual effects SNOMED Code(s): 060590837 ICD Code: I69.90 - UNSPECIFIED SEQUELAE OF UNSPECIFIED CEREBROVASCULAR DISEASE Status: Chronic Current Visit: No (7) Depression SNOMED Code(s): 06827440 ICD Code: F32.A - DEPRESSION, UNSPECIFIED Status: Acute Current Visit: Yes - Patient Instructions Diet: Pureed Activity: As Tolerated Showering/Bathing: May Shower Other/Special Instructions: -Return to the hospital if you have increasing abdominal pain, chest pain, palpitations. -Follow-up with your surgeon Dr. Aguayo in 1 to 2 weeks time. -Be compliant with your medication and take them at scheduled times. -Follow-up with your PCP - Discharge Plan Home Medications: Home Meds Aspirin [Aspirin EC] 81 mg PO DAILY 04/15/21 [History] Calcium Carbonate/Vitamin D3 [Calcium 500-Vit D3 200 Caplet] 1 tab PO DAILY 04/15/21 [History] Docusate Sodium [Colace] 200 mg PO DAILY 04/15/21 [History] Escitalopram [Lexapro] 10 mg PO DAILY 04/15/21 [History] Magnesium Hydroxide [Milk of Magnesia] 30 ml PO BEDTIME PRN 04/15/21 [History] Mirtazapine 30 mg PO BEDTIME 04/15/21 [History] bisacodyL [Dulcolax] 5 mg PO DAILY PRN 04/15/21 [History] bisacodyL [Dulcolax] 10 mg RC DAILY PRN 04/15/21 [History] polyethylene glycoL 3350 [MiraLAX] 17 gm PO DAILY 04/15/21 [History] Pantoprazole Sodium [Protonix] 40 mg PO DAILY #20 tablet.dr 04/19/21 [Rx] levoFLOXacin [Levaquin] 750 mg PO DAILY #6 tab 04/19/21 [Rx] metroNIDAZOLE [Flagyl] 500 mg PO Q8H #18 tab 04/19/21 [Rx] Referrals: Donna Aguayo MD [Physician] - - Discharge Summary/Plan Comment DC Time >30 min.: Yes Total # of Minutes for Discharge Time: 35 minutes - Review of Systems General: Reports: Other (The patient is a poor historian and can only nod to yes or no questions) - Patient Data Vitals - Most Recent: Last Vital Signs Temp 97.4 F 06/10/21 11:00 Pulse 82 06/10/21 11:00 Resp 16 06/10/21 11:00 BP 163/74 H 06/10/21 11:00 Pulse Ox 88 L 06/10/21 11:00 Weight - Most Recent: 137 lb 11.2 oz I&O - Last 24 hours: Intake & Output 06/10/21 06/10/21 06/10/21 06:59 14:59 22:59 Intake Total 500 550 Balance 500 550 Lab Results - Last 24 hrs: Laboratory Results - last 24 hr 06/10/21 06/10/21 Range/Units 05:29 05:29 WBC 5.82 (4.0-11.0) K/uL RBC 4.12 L (4.30-5.90) M/uL Hgb 9.7 L (12.0-16.0) g/dL Hct 32.9 L (36.0-46.0) % MCV 79.9 L (80.0-98.0) fL MCH 23.5 L (27.0-32.0) pg MCHC 29.5 L (31.0-37.0) g/dL RDW Std Deviation 66.5 H (28.0-62.0) fl RDW Coeff of [place] 23 H (11.0-15.0) % Plt Count 344 (150-400) K/uL MPV 10.20 (7.40-12.00) fL Neut % (Auto) 44.8 L (48.0-80.0) % Lymph % (Auto) 40.4 H (16.0-40.0) % [place] % (Auto) 9.8 (0.0-15.0) % Eos % (Auto) 4.1 (0.0-7.0) % Baso % (Auto) 0.9 (0.0-1.5) % Neut # (Auto) 2.6 (1.4-5.7) K/uL Lymph # (Auto) 2.4 (0.6-2.4) K/uL [place] # (Auto) 0.6 (0.0-0.8) K/uL Eos # (Auto) 0.2 (0.0-0.7) K/uL Baso # (Auto) 0.1 (0.0-0.1) K/uL Nucleated RBC % 0.0 /100WBC Nucleated RBCs # 0 K/uL Sodium 143 (136-145) mmol/L Potassium 3.8 (3.5-5.1) mmol/L Chloride 108 H (98-107) mmol/L Carbon Dioxide 27.9 (21.0-32.0) mmol/L BUN 14 (7.0-18.0) mg/dL Creatinine 1.1 H (0.6-1.0) mg/dL Est Cr Clr Drug Dosing 32.83 mL/min Estimated GFR (MDRD) 48.3 ml/min Glucose 93 (74-106) mg/dL Calcium 8.4 L (8.5-10.1) mg/dL Total Bilirubin 0.4 (0.2-1.0) mg/dL AST 58 H (15-37) IU/L ALT 107 H (14-63) IU/L Alkaline Phosphatase 172 H (46-116) U/L Total Protein 6.5 (6.4-8.2) g/dL Albumin 2.4 L (3.4-5.0) g/dL Globulin 4.1 H (2.6-4.0) g/dL Albumin/Globulin Ratio 0.6 L (0.9-1.6) Med Orders - Current: Current Medications Aspirin (Aspirin 81 Mg Tab.Ec) 81 mg PO DAILY [facility] Last Admin: 06/10/21 08:07 Dose: 81 mg Documented by: Enoxaparin Sodium (Enoxaparin 30 Mg/0.3 Ml Syringe) 30 mg SUBCUT Q24H [facility] Last Admin: 06/10/21 08:07 Dose: 30 mg Documented by: Escitalopram Oxalate (Escitalopram 10 Mg Tab) 10 mg PO DAILY [facility] Last Admin: 06/10/21 08:07 Dose: 10 mg Documented by: Mirtazapine (Mirtazapine 15 Mg Tab) 30 mg PO BEDTIME [facility] Last Admin: 06/09/21 20:47 Dose: 30 mg Documented by: Pantoprazole Sodium (Pantoprazole 40 Mg Tab.Cr) 40 mg PO DAILY [facility] Last Admin: 06/10/21 08:07 Dose: 40 mg Documented by: Discontinued Medications Enoxaparin Sodium (Enoxaparin 30 Mg/0.3 Ml Syringe) 30 mg SUBCUT Q24H [facility] Last Admin: 06/10/21 07:03 Dose: Not Given Documented by: - Exam General: Reports: Cooperative, No Acute Distress HEENT: Reports: Mucous Membr. Moist/[place] Neck: Reports: Trachea Midline Lungs: Reports: Clear to Auscultation, Normal Respiratory Effort Cardiovascular: Reports: Regular Rate, Regular Rhythm GI/Abdominal Exam: Normal Bowel Sounds (For incisional scars on the abdomen which are healing well)
[2021-06-10] MEDS: Mirtazapine 15 MG Tab PO SCH (20:59)
[2021-06-11] MEDS: Enoxaparin 30 MG/0.3 ML Syringe SUBCUT SCH (08:12)
[2021-06-11] MEDS: Escitalopram 10 MG Tab PO SCH (08:12)
[2021-06-11] MEDS: Pantoprazole 40 MG Tab.CR PO SCH (08:12)
[2021-06-11] MEDS: Aspirin 81 MG Tab.EC PO SCH (08:12)
[2021-06-11 11:03] LABS: CORONAVIRUS COVID-19 NAA NEGATIVE (NEGATIVE); INFLUENZA A NAA NEGATIVE (NEGATIVE); INFLUENZA B NAA NEGATIVE (NEGATIVE)
== END 2021-06-11 11:10 | DRG 950 ==
LOC: MW.MS 11:52
PROVIDERS: ADMIT Internal Medicine; ATTEND Internal Medicine
DX: Z48.815 Encounter for surgical aftercare following surgery on the digestive system (principal); I25.10 Atherosclerotic heart disease of native coronary artery without angina pectoris; F32.A Depression, unspecified; E78.5 Hyperlipidemia, unspecified; Z20.822 Contact with and (suspected) exposure to COVID-19; I69.120 Aphasia following nontraumatic intracerebral hemorrhage; I12.9 Hypertensive chronic kidney disease with stage 1 through stage 4 chronic kidney disease, or unspecified chronic kidney disease; N18.9 Chronic kidney disease, unspecified; K21.9 Gastro-esophageal reflux disease without esophagitis; Z66 Do not resuscitate; E78.00 Pure hypercholesterolemia, unspecified; Z90.49 Acquired absence of other specified parts of digestive tract; Z79.82 Long term (current) use of aspirin; Z79.899 Other long term (current) drug therapy; Z90.710 Acquired absence of both cervix and uterus
CPT/HCPCS: 0240U; 36415; 80053; 85025; A9270-GY; J1650